=== PATIENT | male | born 1955 | race Hispanic/Latino ===

== ENCOUNTER 2022-04-16 14:49 | Emergency (ER) | payer MEDICARE ==
--- NOTE | 2022-04-16 15:25 | Emergency Department Report ---
Stated Complaint: HIP PAIN/BOWEL ISSUES - HPI History of Present Illness: 66-year-old male reports to the ER with past medical history COPD, DM, pacemaker, HTN patient reports with urination he is also having a bowel movement the same time as been going on for about a week now. MSE screening note: Focused history and physical exam performed. Due to findings the following was ordered: ED Disposition for MSE Condition: Stable
[2022-04-16 17:27] LABS: BUN/Creatinine Ratio 28; Blood Urea Nitrogen 22 mg/dL (9-20)
[2022-04-16 17:29] LABS: Alanine Aminotransferase 122 units/L (7-56); Albumin 3.6 g/dL (3.9-5); Calcium 8.7 mg/dL (8.4-10.2); Hemolysis Index 26
[2022-04-16] MEDS ORDERED: INSULIN REGULAR, HUMAN 100 UNITS/1 ML SUB-Q ONE (17:32)
[2022-04-16 18:11] LABS: Basophils # (Auto) 0.1 K/mm3 (0.0-0.1); Basophils % (Auto) 2.1 % (0.0-1.8); Eosinophils % (Auto) 0.1 % (0.0-4.3); Hematocrit 38.1 % (35.5-45.6); Lymphocytes # (Auto) 0.7 K/mm3 (1.2-5.4); Mean Corpuscular HGB Conc 32 % (32-34); Mean Corpuscular Volume 97 fl (84-94); Monocytes # (Auto) 0.4 K/mm3 (0.0-0.8); Monocytes % (Auto) 6.1 % (0.0-7.3); Platelet Count 131 K/mm3 (140-440); Red Blood Count 3.92 M/mm3 (3.65-5.03); Red Cell Distribution Width 16.1 % (13.2-15.2)
[2022-04-16] MEDS ORDERED: SODIUM CHLORIDE 0.9% 1000 ML 1,000 ML IV ONE ×2 (21:30→21:31)
[2022-04-16] MEDS ORDERED: MORPHINE 4 MG/1 ML INJ IV ONE (21:30)
[2022-04-16] MEDS ORDERED: KETOROLAC 30 MG/1 ML INJ IV ONE (21:31)
--- NOTE | 2022-04-16 22:10 | XRay Report ---
RIGHT HIP 3 VIEW(S) INDICATION / CLINICAL INFORMATION: right hip pain COMPARISON: None available. FINDINGS: BONES / JOINT(S): No acute fracture or subluxation. No significant arthritis. SOFT TISSUES: No significant abnormality. ADDITIONAL FINDINGS: None. Signer Name: Khoi Bingham DO Signed: 04/16/2022 10:06 PM Workstation Name: [id number]
--- NOTE | 2022-04-17 01:18 | Emergency Department Report ---
ED Extremity Problem HPI - General Chief complaint: Urogenital-Male Stated complaint: HIP PAIN/BOWEL ISSUES Source: patient Mode of arrival: Ambulatory Limitations: No Limitations - History of Present Illness Initial comments: Patient is a 66-year-old male with a history of rym-wfszrhn-jeiaqisek diabetes with noncompliant medication, chronic pain due to chronic osteoa rthritis and chronic hip pain who presents to the ED with acute exacerbation of his chronic right hip pain, generalized weakness, and fatigue persistently for the last 1 month. Patient states that he has not taken metformin for his diabetes for over 3 months. Patient also states that he does not have any pain medications at home for his chronic pain. Patient denies fall, traumatic injury, nausea and vomiting, chest pain, shortness of breath, abdominal pain, back pain, fever, chills, dysuria, urinary frequency and urgency, testicular pain, sore throat, headache, change in vision or seizures, dizziness or syncope. MD Complaint: extremity pain (right hip pain), joint paint (right hip pain), other (chronic pain; generalized weakness) -: Gradual, month(s) (1) Location: right, lower extremity (right hip pain) History of Same: Yes (chronic right knee pain) -: Yes arthralgia (right hip pain), No fever, No associated dyspnea, No associated chest pain Severity scale (0 -10): 10 Quality: aching, sharp Consistency: constant Improves with: nothing, movement Worsens with: weight bearing, walking, exertion, palpation Associated Symptoms: denies other symptoms, arthralgias (right hip pain). denies: chest pain, shortness of breath, fever, myalgias - Related Data Previous Rx's Medication Instructions Recorded Last Taken Type Baclofen 20 mg PO Q12H PRN #20 tab 04/17/22 Unknown Rx Naproxen 500 mg PO Q12H PRN #30 tab 04/17/22 Unknown Rx metFORMIN [Glucophage] 500 mg PO Q12H #60 tab 04/17/22 Unknown Rx Allergies Allergy/AdvReac Type Severity Reaction Status Date / Time No Known Allergies Allergy Unverified 04/16/22 15:25 ED Review of Systems ROS: Stated complaint: HIP PAIN/BOWEL ISSUES Other details as noted in HPI Constitutional: denies: chills, fever Eyes: denies: eye pain, eye discharge, vision change ENT: denies: ear pain, throat pain Respiratory: denies: cough, shortness of breath, wheezing Cardiovascular: denies: chest pain, palpitations Endocrine: no symptoms reported Gastrointestinal: denies: abdominal pain, nausea, diarrhea Genitourinary: denies: urgency, dysuria Musculoskeletal: arthralgia (right hip pain). denies: back pain, joint swelling Skin: denies: rash, lesions Neurological: denies: headache, weakness, paresthesias Psychiatric: denies: anxiety, depression Hematological/Lymphatic: denies: easy bleeding, easy bruising ED Past Medical Hx - Social History Smoking Status: Unknown if ever smoked - Medications Home Medications: Home Medications Medication Instructions Recorded Confirmed Last Taken Type Baclofen 20 mg PO Q12H PRN #20 tab 04/17/22 Unknown Rx Naproxen 500 mg PO Q12H PRN #30 tab 04/17/22 Unknown Rx metFORMIN [Glucophage] 500 mg PO Q12H #60 tab 04/17/22 Unknown Rx ED Physical Exam - General Limitations: No Limitations General appearance: alert, in no apparent distress - Head Head exam: Present: atraumatic, normocephalic, normal inspection - Eye Eye exam: Present: normal appearance, PERRL, EOMI Pupils: Present: normal accommodation - ENT ENT exam: Present: normal exam, normal orophraynx, mucous membranes moist, TM's normal bilaterally, normal external ear exam - Neck Neck exam: Present: normal inspection, full ROM. Absent: tenderness - Respiratory Respiratory exam: Present: normal lung sounds bilaterally. Absent: respiratory distress, wheezes, rales, rhonchi, stridor, chest wall tenderness, accessory muscle use, decreased breath sounds, prolonged expiratory - Cardiovascular Cardiovascular Exam: Present: regular rate, normal rhythm, normal heart sounds. Absent: systolic murmur, diastolic murmur, rubs, gallop - GI/Abdominal GI/Abdominal exam: Present: soft, normal bowel sounds. Absent: tenderness, guarding, rebound, hyperactive bowel sounds, hypoactive bowel sounds, organomeg susy - Extremities Exam Extremities exam: Present: normal inspection, full ROM, tenderness (palpable right hip tenderness), normal capillary refill. Absent: pedal edema, joint swelling, calf tenderness - Back Exam Back exam: Present: normal inspection, full ROM. Absent: tenderness, CVA tenderness (R), CVA tenderness (L), muscle spasm, paraspinal tenderness, vertebral tenderness - Neurological Exam Neurological exam: Present: alert, oriented X3, CN II-XII intact, normal gait, reflexes normal - Psychiatric Psychiatric exam: Present: normal affect, normal mood - Skin Skin exam: Present: warm, dry, intact, normal color. Absent: rash ED Course Vital Signs 04/16/22 04/16/22 04/16/22 15:20 22:06 22:07 Temperature 97.4 F L Pulse Rate 76 Respiratory 20 18 18 Rate Blood Pressure 125/80 [Left] O2 Sat by Pulse 100 Oximetry ED Medical Decision Making - Lab Data Result diagrams: 04/16/22 16:00 04/16/22 16:00 - Radiology Data Radiology results: report reviewed, [id number] XRay Report Signed Patient: RONNIE HENDERSON MR#: [id number] : 1955 Acct:[id number] Age/Sex: 66 / M ADM Date: 04/16/22 Loc: ED Attending Dr: Ordering Physician: RAKESH BARBA Date of Service: 04/16/22 Procedure(s): XR hip 2-3V RT Accession Number(s): [id number] cc: RAKESH BARBA Fluoro Time In Minutes: RIGHT HIP 3 VIEW(S) INDICATION / CLINICAL INFORMATION: right hip pain COMPARISON: None available. FINDINGS: BONES / JOINT(S): No acute fracture or subluxation. No significant arthritis. SOFT TISSUES: No significant abnormality. ADDITIONAL FINDINGS: None. Signer Name: Khoi Regalado DO Signed: 04/16/2022 10:06 PM Workstation Name: [id number] Transcribed By: ISAAC Dictated By: KHOI REGALADO DO Electronically Authenticated By: KHOI REGALADO DO Signed Date/Time: 04/16/222205 DD/ 04 TD/TT: - Medical Decision Making This is a 66-year-old male with a history of sby-onaivkm-kiptckuam diabetes with noncompliant medication, chronic pain due to chronic osteoarthritis and chronic hip pain who presents to the ED with acute exacerbation of his chronic right hip pain, generalized weakness, and fatigue persistently for the last 1 month. Patient states that he has not taken metformin for his diabetes for over 3 months. Patient also states that he does not have any pain medications at home for his chronic pain. In the ED, patient is alert and oriented x3 and is not in any distress but appears to be in pain. Patient is hemodynamically stable. Right hip x-ray showed no acute fractures or subluxation. Lab test results were reviewed and showed acute hyponatremia 131 mmol/L, acute hypochloremia 96.6, BUN of 22, hyperglycemia of 542 mg/dL, AST of 55, ALT of 122, and alk phos of 142. Patient however declined to give urine for urinalysis. Patient was treated in the ED with 2 L of normal saline IV bolus and 10 units of insulin IV x1. Patient also received pain medications in the ED. On reevaluation, patient felt better, pain is well controlled medication and repeat [id number] serum glucose was 256 mg/dL after the treatment. Patient was therefore discharged home on pain medications and a prescription of metformin and advised to follow-up with his primary care physician in 5 to 7 days for reevaluation or return to the ED immediately if symptoms get worse. - Differential Diagnosis chronic pain; chronic osteoarthritis; hyperglycemia; Critical care attestation.: If time is entered above; I have spent that time in minutes in the direct care of this critically ill patient, excluding procedure time. ED Disposition Clinical Impression: Chronic pain syndrome, Chronic pain of right hip, Noncompliance w/medication treatment due to intermit use of medication Hyperglycemia due to type 2 diabetes mellitus Qualifiers: Diabetes mellitus group home insulin use: without superintendent terminal use Qualified Code(s): E11.65 - Type 2 diabetes mellitus with hyperglycemia Disposition: 01 HOME / SELF CARE / HOMELESS Is pt being admited?: No Does the pt Need Aspirin: No Condition: Stable Instructions: Hip Pain, Hyperglycemia, [id number], Chronic Pain, Adult, Type 2 Diabetes Mellitus, Self Care, Adult, Msgm-mz-Oemm, Musculoskeletal Pain, Joint Pain, [id number]-[id number]-Ohqz, Diabetes Mellitus Type 2 in Adults (ED) Additional Instructions: Take medication with food, drink plenty of fluids, follow-up with your primary care physician in 7 to 10 days for reevaluation. Return to the ED immediately if symptoms get worse. Prescriptions: Baclofen 20 mg PO Q12H PRN #20 tab PRN Reason: Muscle Spasm metFORMIN [Glucophage] 500 mg PO Q12H #60 tab Naproxen 500 mg PO Q12H PRN #30 tab PRN Reason: Pain , Severe (7-10) Referrals: KAMARI MOROCHO MD [Primary Care Provider] - 7-10 days Time of Disposition: 01:20 Print Language: GEORGIAN
[2022-04-17 07:13] VITALS: BP 99/77
== END 2022-04-17 07:13 | disposition home or self-care (01) ==
LOC: ED 14:49
DX: M25.551 Pain in right hip (principal); G89.4 Chronic pain syndrome; Z91.14 Patient's other noncompliance with medication regimen; E11.65 Type 2 diabetes mellitus with hyperglycemia; Z79.899 Other long term (current) drug therapy
CPT/HCPCS: 36415; 73502; 80053; 82962; 85025; 96361; 96372; 96374; 96375; 99284; J1885; J2270; J7030; Q9967; J1815

== ENCOUNTER 2022-04-21 12:26 | Inpatient (IN) | payer MEDICARE ==
[2022-04-21] MEDS ORDERED: SODIUM CHLORIDE 0.9% 500 ML 500 ML IV ONE (12:55)
--- NOTE | 2022-04-21 12:58 | Emergency Department Report ---
ED General Adult HPI - General Chief complaint: Hyperglycemia Stated complaint: HYPERGLYCEMIA Time Seen by Provider: 04/21/22 12:51 Source: patient, EMS ( EMS documentation not available at time of chart dictation ), RN notes reviewed, old records reviewed Mode of arrival: Stretcher Limitations: Altered Mental Status, Physical Limitation - History of Present Illness Initial comments: The patient was evaluated in the emergency department for symptoms described in the history of present illness. He/she was evaluated in the context of the global COVID-19 pandemic, which necessitated consideration that the patient might be at risk for infection with the virus that causes COVID-19. Institutional protocols and algorithms that pertain to the evaluation of patients at risk for COVID-19 are in a state of rapid change based on information released by regulatory bodies including the CDC and federal and state organizations. These policies and algorithms were followed during the patient's care in the emergency department. Please note that these policies, procedures and recommendations changed on a rapid basis. This is a 66-year-old gentleman who was brought to the hospital by emergency medical services. Patient is acutely altered, confused, agitated. The patient is not accompanied by friends or family at this time for collateral information or additional history. As per verbal report from nursing team, who received verbal report from EMS, the patient was found in the yard, for uncertain duration of time, uncertain mechanism, with 911 being called for alteration in mental status and hyperglycemia. Of note, this patient was seen in this department a few days ago, and had laboratory studies at that time which demonstrated metabolic acidosis, hyperglycemia, and transaminitis. His glucose was treated, but for unclear reasons, he was discharged. The patient presents today with the aforementioned. Patient confused and agitated, not able to describe the qualitative nature of symptoms, exacerbating factors relieving factors or aggravating factors. No additional history is available at this time - Related Data Previous Rx's Medication Instructions Recorded Last Taken Type Baclofen 20 mg PO Q12H PRN #20 tab 04/17/22 Unknown Rx Naproxen 500 mg PO Q12H PRN #30 tab 04/17/22 Unknown Rx metFORMIN [Glucophage] 500 mg PO Q12H #60 tab 04/17/22 Unknown Rx Allergies Allergy/AdvReac Type Severity Reaction Status Date / Time No Known Allergies Allergy Verified 04/21/22 14:19 ED Review of Systems ROS: Stated complaint: HYPERGLYCEMIA Other details as noted in HPI Comment: Unobtainable due to pts medical conditions ED Past Medical Hx - Past Medical History Previous Medical History?: No Additional medical history: unable to assess - Social History Smoking Status: Unknown if ever smoked - Medications Home Medications: Home Medications Medication Instructions Recorded Confirmed Last Taken Type Baclofen 20 mg PO Q12H PRN #20 tab 04/17/22 Unknown Rx Naproxen 500 mg PO Q12H PRN #30 tab 04/17/22 Unknown Rx metFORMIN [Glucophage] 500 mg PO Q12H #60 tab 04/17/22 Unknown Rx ED Physical Exam - General Limitations: Altered Mental Status General appearance: other (Agitated.) - Head Head exam: Present: atraumatic, normocephalic - Eye Eye exam: Present: normal appearance, EOMI - ENT ENT exam: Present: mucous membranes dry, normal external ear exam - Neck Neck exam: Present: normal inspection, full ROM. Absent: tenderness, meningismu s - Respiratory Respiratory exam: Present: normal lung sounds bilaterally. Absent: respiratory distress, rhonchi, stridor, decreased breath sounds - Cardiovascular Cardiovascular Exam: Present: normal rhythm, tachycardia, normal heart sounds. Absent: bradycardia, irregular rhythm, systolic murmur, diastolic murmur, rubs, gallop - GI/Abdominal GI/Abdominal exam: Present: soft. Absent: distended, tenderness, guarding, rebound, rigid, pulsatile mass - Rectal Rectal exam: Present: deferred - Extremities Exam Extremities exam: Present: normal inspection, full ROM, normal capillary refill, pedal edema (2+ edema noted in the bilateral lower extremities), other (2+ pulses noted in the bilateral upper and lower extremities. There is no palpable cord. negative Homans sign. Muscular compartments are soft. The pelvis is stable.). Absent: calf tenderness - Back Exam Back exam: Present: normal inspection. Absent: tenderness, CVA tenderness (R), CVA tenderness (L), paraspinal tenderness, vertebral tenderness - Neurological Exam Neurological exam: Present: altered (The patient is altered. The patient is moving 4 extremities. The patient is yelling.) - Psychiatric Psychiatric exam: Present: agitated - Skin Skin exam: Present: warm, dry, intact. Absent: urticaria, vesicles, petechiae, pallor, abrasion, ecchymosis ED Course Vital Signs 04/21/22 04/21/22 04/21/22 13:14 13:16 13:46 Temperature 97.5 F L Pulse Rate 111 H 116 H 131 H Respiratory 18 25 H 19 Rate Blood Pressure 112/73 126/69 O2 Sat by Pulse 100 55 L 99 Oximetry 04/21/22 04/21/22 04/21/22 14:00 14:16 14:30 Temperature Pulse Rate 111 H 112 H 125 H Respiratory 18 20 21 Rate Blood Pressure 112/73 113/64 101/71 O2 Sat by Pulse 100 99 Oximetry 04/21/22 04/21/22 04/21/22 14:46 15:08 15:16 Temperature Pulse Rate 112 H 96 H 111 H Respiratory 19 15 25 H Rate Blood Pressure 116/82 124/86 124/86 O2 Sat by Pulse Oximetry 04/21/22 04/21/22 04/21/22 15:30 15:46 16:00 Temperature Pulse Rate 141 H 146 H 152 H Respiratory 19 23 21 Rate Blood Pressure 145/114 145/114 145/114 O2 Sat by Pulse Oximetry 04/21/22 04/21/22 04/21/22 16:16 16:30 16:45 Temperature Pulse Rate 140 H 136 H 122 H Respiratory 14 18 15 Rate Blood Pressure 68/51 94/65 O2 Sat by Pulse 57 L Oximetry - Reevaluation(s) Reevaluation #1: 04/21/22 14:37 Differential diagnosis, including not limited to: Toxic metabolic encephalopathy, secondary to diabetic ketoacidosis, pneumonia, UTI, electrolyte derangement, thyroid derangement Assessment and plan: 66-year-old gentleman with alteration in mental status, who presents with recurrent diabetic ketoacidosis. This patient was discharged a few days ago, and diabetic ketoacidosis. The reasons as to his discharge with abnormal laboratory studies and transaminitis a few days ago are not clear to myself. Patient presents with a glucose of greater than 400, CO2 of 12, and anion gap of 35. Elevated troponin is likely a type II troponin leak. Elevated lactic acid, is likely a type II lactic acidosis. Chest x-ray does not demonstrate evidence of pneumonia. Urinalysis is pending. He has a consistent and persistent transaminitis, and is found to be hepatitis C positive based off of serology. Serum toxicology study unremarkable. Ammonia level pending Patient agitated and uncooperative here in the department, and he does not demonstrate decision-making capacity. He does not have a surrogate decision-m amy present. He presents with an acute medical condition, requiring critical interventions, with a toxic metabolic encephalopathy, secondary to DKA. He is therefore medicated appropriately, to allow for acquisition of appropriate diagnostics, such as CT scan brain, and CT scan cervical spine. Contacted critical care on-call, Dr. English. I discussed the patient's history, physical, laboratory studies and imaging studies, and clinical impression. He will follow in consultation. He agrees with placement into the intensive care unit start patient on fluids, insulin push and insulin drip. Once CT scan is resulted, admit patient to the ICU. Prognosis guarded Suspect that systemic inflammatory response syndrome likely secondary to dehydration, and underlying metabolic derangements 04/21/22 14:44 Dr Mily Schaffer to admit to IMS/CCU 04/21/22 15:23 CT scan brain and C-spine negative for acute findings 04/21/22 16:39 Patient agitated pulling and thrashing. Blood pressure decreased when compared to prior. Suspect volume depletion. As needed Versed ordered. Additional IV fluids ordered. 04/21/22 18:05 Patient remains persistently tachycardic. EKG is repeated. I see ventricular paced complexes, and rapid tachycardia. Suspect volume depletion, metabolic acidosis. First and second EKG are transmitted to our supply chain vice president on-call, Dr. Shavonne Todd Have discussed the patient's history, physical, laboratory studies and imaging studies and clinical impression. We both agree that it is prudent to continue volume resuscitation and correction of underlying electrolyte derangements, m etabolic derangements, and volume depletion. Specifically, amiodarone, and rate control agents are not recommended at this time. Cardiology will follow along the inpatient side of things. I agree with this plan of care and think that this is reasonable ED Medical Decision Making - Lab Data Result diagrams: 04/21/22 13:21 04/21/22 13:21 Vital Signs 04/21/22 13:14 Temperature 97.5 F L Pulse Rate 111 H Respiratory 18 Rate Blood Pressure 112/73 O2 Sat by Pulse 100 Oximetry Lab Results 04/21/22 04/21/22 04/21/22 Range/Units 13:21 13:21 13:21 WBC 6.9 (4.5-11.0) K/mm3 RBC 3.86 (3.65-5.03) M/mm3 Hgb 12.2 (11.8-15.2) gm/dl Hct 37.9 (35.5-45.6) % MCV 98 H (84-94) fl MCH 32 (28-32) pg MCHC 32 (32-34) % RDW 18.0 H (13.2-15.2) % Plt Count 149 (140-440) K/mm3 Lymph % (Auto) 5.7 L (13.4-35.0) % [place] % (Auto) 7.9 H (0.0-7.3) % Eos % (Auto) 0.0 (0.0-4.3) % Baso % (Auto) 0.1 (0.0-1.8) % Lymph # (Auto) 0.4 L (1.2-5.4) K/mm3 [place] # (Auto) 0.5 (0.0-0.8) K/mm3 Eos # (Auto) 0.0 (0.0-0.4) K/mm3 Baso # (Auto) 0.0 (0.0-0.1) K/mm3 Seg Neutrophils % 86.3 H (40.0-70.0) % Seg Neutrophils # 6.0 (1.8-7.7) K/mm3 PT 14.1 (12.2-14.9) Sec. INR 0.98 (0.87-1.13) APTT 22.0 L (24.2-36.6) Sec. VBG pH (7.320-7.420) Sodium 149 H D (137-145) mmol/L Potassium 4.6 (3.6-5.0) mmol/L Chloride 106.6 (98-107) mmol/L Carbon Dioxide 12 L (22-30) mmol/L Anion Gap 35 mmol/L BUN 22 H (9-20) mg/dL Creatinine 0.8 (0.8-1.3) mg/dL Estimated GFR > 60 ml/min BUN/Creatinine Ratio 28 % Glucose 402 H (75-100) mg/dL Lactic Acid (0.7-2.0) mmol/L Calcium 9.4 (8.4-10.2) mg/dL Magnesium 2.00 (1.7-2.3) mg/dL Total Bilirubin 0.60 (0.1-1.2) mg/dL AST 44 H (5-40) units/L ALT 82 H (7-56) units/L Alkaline Phosphatase 119 (35-129) units/L Total Creatine Kinase 257 H (55-170) units/L Troponin T (0.00-0.029) ng/mL Total Protein 6.5 (6.3-8.2) g/dL Albumin 3.6 L (3.9-5) g/dL Albumin/Globulin Ratio 1.2 % TSH (0.270-4.200) mlU/mL Urine RBC (Auto) (0.0-6.0) /HPF U Epithel Cells (Auto) (0-13.0) /HPF Salicylates (2.8-20.0) mg/dL Acetaminophen (10.0-30.0) ug/mL Plasma/Serum Alcohol (0-0.07) % 04/21/22 04/21/22 04/21/22 Range/Units 13:21 13:21 13:21 WBC (4.5-11.0) K/mm3 RBC (3.65-5.03) M/mm3 Hgb (11.8-15.2) gm/dl Hct (35.5-45.6) % MCV (84-94) fl MCH (28-32) pg MCHC (32-34) % RDW (13.2-15.2) % Plt Count (140-440) K/mm3 Lymph % (Auto) (13.4-35.0) % [place] % (Auto) (0.0-7.3) % Eos % (Auto) (0.0-4.3) % Baso % (Auto) (0.0-1.8) % Lymph # (Auto) (1.2-5.4) K/mm3 [place] # (Auto) (0.0-0.8) K/mm3 Eos # (Auto) (0.0-0.4) K/mm3 Baso # (Auto) (0.0-0.1) K/mm3 Seg Neutrophils % (40.0-70.0) % Seg Neutrophils # (1.8-7.7) K/mm3 PT (12.2-14.9) Sec. INR (0.87-1.13) APTT (24.2-36.6) Sec. VBG pH (7.320-7.420) Sodium (137-145) mmol/L Potassium (3.6-5.0) mmol/L Chloride (98-107) mmol/L Carbon Dioxide (22-30) mmol/L Anion Gap mmol/L BUN (9-20) mg/dL Creatinine (0.8-1.3) mg/dL Estimated GFR ml/min BUN/Creatinine Ratio % Glucose (75-100) mg/dL Lactic Acid 2.30 H* (0.7-2.0) mmol/L Calcium (8.4-10.2) mg/dL Magnesium (1.7-2.3) mg/dL Total Bilirubin (0.1-1.2) mg/dL AST (5-40) units/L ALT (7-56) units/L Alkaline Phosphatase (35-129) units/L Total Creatine Kinase (55-170) units/L Troponin T (0.00-0.029) ng/mL Total Protein (6.3-8.2) g/dL Albumin (3.9-5) g/dL Albumin/Globulin Ratio % TSH 3.310 (0.270-4.200) mlU/mL Urine RBC (Auto) (0.0-6.0) /HPF U Epithel Cells (Auto) (0-13.0) /HPF Salicylates (2.8-20.0) mg/dL Acetaminophen (10.0-30.0) ug/mL Plasma/Serum Alcohol < 0.01 (0-0.07) % 04/21/22 04/21/22 04/21/22 Range/Units 13:21 13:21 13:21 WBC (4.5-11.0) K/mm3 RBC (3.65-5.03) M/mm3 Hgb (11.8-15.2) gm/dl Hct (35.5-45.6) % MCV (84-94) fl MCH (28-32) pg MCHC (32-34) % RDW (13.2-15.2) % Plt Count (140-440) K/mm3 Lymph % (Auto) (13.4-35.0) % [place] % (Auto) (0.0-7.3) % Eos % (Auto) (0.0-4.3) % Baso % (Auto) (0.0-1.8) % Lymph # (Auto) (1.2-5.4) K/mm3 [place] # (Auto) (0.0-0.8) K/mm3 Eos # (Auto) (0.0-0.4) K/mm3 Baso # (Auto) (0.0-0.1) K/mm3 Seg Neutrophils % (40.0-70.0) % Seg Neutrophils # (1.8-7.7) K/mm3 PT (12.2-14.9) Sec. INR (0.87-1.13) APTT (24.2-36.6) Sec. VBG pH (7.320-7.420) Sodium (137-145) mmol/L Potassium (3.6-5.0) mmol/L Chloride (98-107) mmol/L Carbon Dioxide (22-30) mmol/L Anion Gap mmol/L BUN (9-20) mg/dL Creatinine (0.8-1.3) mg/dL Estimated GFR ml/min BUN/Creatinine Ratio % Glucose (75-100) mg/dL Lactic Acid (0.7-2.0) mmol/L Calcium (8.4-10.2) mg/dL Magnesium (1.7-2.3) mg/dL Total Bilirubin (0.1-1.2) mg/dL AST (5-40) units/L ALT (7-56) units/L Alkaline Phosphatase (35-129) units/L Total Creatine Kinase (55-170) units/L Troponin T 0.537 H* (0.00-0.029) ng/mL Total Protein (6.3-8.2) g/dL Albumin (3.9-5) g/dL Albumin/Globulin Ratio % TSH (0.270-4.200) mlU/mL Urine RBC (Auto) (0.0-6.0) /HPF U Epithel Cells (Auto) (0-13.0) /HPF Salicylates < 0.3 L (2.8-20.0) mg/dL Acetaminophen 5.0 L (10.0-30.0) ug/mL Plasma/Serum Alcohol (0-0.07) % 04/21/22 04/21/22 Range/Units 13:21 Unknown WBC (4.5-11.0) K/mm3 RBC (3.65-5.03) M/mm3 Hgb (11.8-15.2) gm/dl Hct (35.5-45.6) % MCV (84-94) fl MCH (28-32) pg MCHC (32-34) % RDW (13.2-15.2) % Plt Count (140-440) K/mm3 Lymph % (Auto) (13.4-35.0) % [place] % (Auto) (0.0-7.3) % Eos % (Auto) (0.0-4.3) % Baso % (Auto) (0.0-1.8) % Lymph # (Auto) (1.2-5.4) K/mm3 [place] # (Auto) (0.0-0.8) K/mm3 Eos # (Auto) (0.0-0.4) K/mm3 Baso # (Auto) (0.0-0.1) K/mm3 Seg Neutrophils % (40.0-70.0) % Seg Neutrophils # (1.8-7.7) K/mm3 PT (12.2-14.9) Sec. INR (0.87-1.13) APTT (24.2-36.6) Sec. VBG pH 7.265 L (7.320-7.420) Sodium (137-145) mmol/L Potassium (3.6-5.0) mmol/L Chloride (98-107) mmol/L Carbon Dioxide (22-30) mmol/L Anion Gap mmol/L BUN (9-20) mg/dL Creatinine (0.8-1.3) mg/dL Estimated GFR ml/min BUN/Creatinine Ratio % Glucose (75-100) mg/dL Lactic Acid (0.7-2.0) mmol/L Calcium (8.4-10.2) mg/dL Magnesium (1.7-2.3) mg/dL Total Bilirubin (0.1-1.2) mg/dL AST (5-40) units/L ALT (7-56) units/L Alkaline Phosphatase (35-129) units/L Total Creatine Kinase (55-170) units/L Troponin T (0.00-0.029) ng/mL Total Protein (6.3-8.2) g/dL Albumin (3.9-5) g/dL Albumin/Globulin Ratio % TSH (0.270-4.200) mlU/mL Urine RBC (Auto) 2.0 (0.0-6.0) /HPF U Epithel Cells (Auto) 1.0 (0-13.0) /HPF Salicylates (2.8-20.0) mg/dL Acetaminophen (10.0-30.0) ug/mL Plasma/Serum Alcohol (0-0.07) % - EKG Data -: EKG Interpreted by Dc Rate: tachycardia - EKG Data When compared to previous EKG there are: previous EKG unavailable 04/21/22 14:34 The EKG is interpreted at 13: 01 Ventricular paced rhythm, with a rate of 113 bpm. Left axis deviation, left anterior fascicular block, symmetric peak T waves, QTC 5 4 4 ms, and left ventricular hypertrophy. This is an abnormal EKG. This is not a STEMI There is no prior EKG available for comparison - Radiology Data Radiology results: pending, report reviewed, image reviewed CHEST 1 VIEW INDICATION / CLINICAL INFORMATION: Altered Mental Status. COMPARISON: None available. FINDINGS: SUPPORT DEVICES: Pacemaker device is present. HEART / MEDIASTINUM: Mild cardiomegaly. LUNGS / PLEURA: No significant pulmonary or pleural abnormality. No pneumothorax. ADDITIONAL FINDINGS: No significant additional findings. IMPRESSION: 1. No acute pulmonary or pleural disease. Signer Name: Naa Ramirez MD Signed: 04/21/2022 12:37 PM Workstation Name: [id number] CT CERVICAL SPINE WITHOUT CONTRAST INDICATION: ams. Recent fall TECHNIQUE: Axial CT images of the spine were obtained. Sagittal and coronal reformatted images were produced. All CT scans at this location are performed using CT dose reduction for ALARA by means of automated exposure control. COMPARISON: None available. FINDINGS: ACUTE FRACTURE(S) OR SUBLUXATION: None. SPINAL DEGENERATIVE CHANGES: Mild degenerative disc disease from C3 through C6. PARASPINAL SOFT TISSUES: No soft tissue swelling or other acute abnormalities. ADDITIONAL FINDINGS: Atherosclerotic ossification both carotid bulbs. IMPRESSION: 1. No acute fracture or subluxation in the spine in neutral position. Signer Name: Garry Do MD Signed: 04/21/2022 1:59 PM Workstation Name: [id number] CT head/brain wo con INDICATION: ams. TECHNIQUE: All CT scans at this location are performed using CT dose reduction for ALARA by means of automated exposure control. COMPARISON: None available. FINDINGS: There is no evidence of hemorrhage, hydrocephalus, brain edema, or mass effect/mass lesion. 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 There is mild global atrophy. The included paranasal sinuses and mastoid air cells are clear. The orbits appear unremarkable. IMPRESSION: 1. No acute findings. Signer Name: Garry Do MD Signed: 04/21/2022 2:00 PM Workstation Name: [id number] Critical Care Time: Yes Critical care time in (mins) excluding proc time.: 45 Critical care attestation.: If time is entered above; I have spent that time in minutes in the direct care of this critically ill patient, excluding procedure time. ED Disposition Clinical Impression: DKA (diabetic ketoacidosis), Acute encephalopathy, Transaminitis, Hepatitis C Disposition: 09 ADMITTED INPATIENT Is pt being admited?: Yes Does the pt Need Aspirin: No Condition: Critical Instructions: Diabetic Ketoacidosis (ED)
--- NOTE | 2022-04-21 13:42 | XRay Report ---
CHEST 1 VIEW INDICATION / CLINICAL INFORMATION: Altered Mental Status. COMPARISON: None available. FINDINGS: SUPPORT DEVICES: Pacemaker device is present. HEART / MEDIASTINUM: Mild cardiomegaly. LUNGS / PLEURA: No significant pulmonary or pleural abnormality. No pneumothorax. ADDITIONAL FINDINGS: No significant additional findings. IMPRESSION: 1. No acute pulmonary or pleural disease. Signer Name: Naa Ramirez MD Signed: 04/21/2022 1:37 PM Workstation Name: [id number]
[2022-04-21 13:52] LABS: Basophils % (Auto) 0.1 % (0.0-1.8); Hematocrit 37.9 % (35.5-45.6); Hemoglobin 12.2 gm/dl (11.8-15.2); Lymphocytes # (Auto) 0.4 K/mm3 (1.2-5.4); Lymphocytes % (Auto) 5.7 % (13.4-35.0); Mean Corpuscular HGB Conc 32 % (32-34); Mean Corpuscular Volume 98 fl (84-94); Monocytes # (Auto) 0.5 K/mm3 (0.0-0.8); Monocytes % (Auto) 7.9 % (0.0-7.3); Platelet Count 149 K/mm3 (140-440); Red Blood Count 3.86 M/mm3 (3.65-5.03)
[2022-04-21] MEDS ORDERED: HALOPERIDOL LACTATE 5 MG/1 ML INJ IM PRN (13:56)
[2022-04-21] MEDS ORDERED: LORazepam 2 MG/ML VIAL IM PRN (13:56)
[2022-04-21 13:59] LABS: Alanine Aminotransferase 82 units/L (7-56); Albumin 3.6 g/dL (3.9-5); BUN/Creatinine Ratio 28; Blood Urea Nitrogen 22 mg/dL (9-20); Calcium 9.4 mg/dL (8.4-10.2); Hemolysis Index 1; INR 0.98 (0.87-1.13)
[2022-04-21 14:05] LABS: Mucus,Urine FEW /HPF
[2022-04-21] MEDS ORDERED: INSULIN REGULAR, HUMAN 100 UNITS/1 ML IV ONE (14:18)
[2022-04-21] MEDS ORDERED: SODIUM CHLORIDE 0.9% 1000 ML 1,000 ML IV ONE ×2 (14:18→14:19)
[2022-04-21] MEDS ORDERED: DEXTROSE 50% IN WATER (25GM) 50 ML SYRINGE IV PRN (14:18)
[2022-04-21 14:25] LABS: Hepatitis B Surface Antigen Non-Reactive (Negative); Hepatitis C Virus Antibody Reactive (NonReactive)
[2022-04-21 14:27] LABS: Bilirubin,Urine Negative (Negative); Blood,Urine Trace (Negative); Color,Urine Straw (Yellow); Urobilinogen,Urine < 2.0 mg/dL (<2.0)
[2022-04-21 14:35] LABS: Amphetamine Screen,Urine PRESUMPTIVE NEGATIVE; Benzodiazepines Screen,Urine PRESUMPTIVE NEGATIVE; Cannabinoid Screen,Urine PRESUMPTIVE NEGATIVE; Cocaine Screen,Urine PRESUMPTIVE NEGATIVE; Methadone Screen,Urine PRESUMPTIVE NEGATIVE; Opiate Screen,Urine PRESUMPTIVE NEGATIVE
[2022-04-21] MEDS ORDERED: KETOROLAC 30 MG/1 ML INJ IV PRN (14:45)
[2022-04-21] MEDS ORDERED: HYDROmorphone 0.5 MG/0.5 ML INJ IV PRN (14:45)
[2022-04-21] MEDS ORDERED: MORPHINE 2 MG/1 ML INJ IV PRN (14:45)
[2022-04-21] MEDS ORDERED: INSULIN REGULAR, HUMAN 100 UNITS in SODIUM CHLORIDE 0.9% 99 ML IV SCH (15:00)
--- NOTE | 2022-04-21 15:03 | Cat Scan Report ---
CT CERVICAL SPINE WITHOUT CONTRAST INDICATION: ams. Recent fall TECHNIQUE: Axial CT images of the spine were obtained. Sagittal and coronal reformatted images were produced. Al l CT scans at this location are performed using CT dose reduction for ALARA by means of automated exp osure control. COMPARISON: None available. FINDINGS: ACUTE FRACTURE(S) OR SUBLUXATION: None. SPINAL DEGENERATIVE CHANGES: Mild degenerative disc disease from C3 through C6. PARASPINAL SOFT TISSUES: No soft tissue swelling or other acute abnormalities. ADDITIONAL FINDINGS: Atherosclerotic ossification both carotid bulbs. IMPRESSION: 1. No acute fracture or subluxation in the spine in neutral position. Signer Name: Garry Do MD Signed: 04/21/2022 2:59 PM Workstation Name: [id number]
--- NOTE | 2022-04-21 15:04 | Cat Scan Report ---
CT head/brain wo con INDICATION: ams. TECHNIQUE: All CT scans at this location are performed using CT dose reduction for ALARA by means of automated e xposure control. COMPARISON: None available. FINDINGS: There is no evidence of hemorrhage, hydrocephalus, brain edema, or mass effect/mass lesion. There is a chronic infarct in the left [employer]IP[employer]ER territory. There is mild global atrophy. The included paranasal sinuses and mastoid air cells are clear. The orbits appear unremarkable. IMPRESSION: 1. No acute findings. Signer Name: Garry Do MD Signed: 04/21/2022 3:00 PM Workstation Name: [id number]
[2022-04-21] MEDS ORDERED: SODIUM CHLORIDE 0.9% 1000 ML 2,000 ML IV ONE ×2 (16:17→19:57)
[2022-04-21] MEDS: MIDAZOLAM 2 MG/2 ML INJ IV PRN (16:18)
[2022-04-21] MEDS ORDERED: ZIPRASIDONE MESYLATE 20 MG VIAL IM STA (17:57)
[2022-04-21] MEDS ORDERED: LACTATED RINGERS 1,000 ML IV ONE (18:05)
[2022-04-21] MEDS ORDERED: SODIUM CHLORIDE 0.9% 1000 ML 1,000 ML ONE (19:36)
[2022-04-21] MEDS: D5W/0.45% NACL/KCL 20 MEQ 20 MEQ/1,000 ML BAG IV SCH (19:54)
[2022-04-21 21:45] LABS: Blood Urea Nitrogen 19 mg/dL (9-20); Calcium 7.7 mg/dL (8.4-10.2); Hemolysis Index 10
[2022-04-21 21:47] LABS: BUN/Creatinine Ratio 32
[2022-04-22] MEDS ORDERED: MORPHINE 2 MG/1 ML INJ IV PRN (01:44)
[2022-04-22] MEDS ORDERED: ACETAMINOPHEN 325 MG TAB PO PRN (01:44)
[2022-04-22] MEDS ORDERED: HYDROmorphone 0.5 MG/0.5 ML INJ IV PRN (01:44)
[2022-04-22] MEDS ORDERED: ONDANSETRON 4 MG/2 ML INJ IV PRN (01:44)
[2022-04-22] MEDS ORDERED: METOCLOPRAMIDE 10 MG/2 ML INJ IV PRN (01:44)
[2022-04-22] MEDS: D5W/0.45% NACL/KCL 20 MEQ 20 MEQ/1,000 ML BAG IV SCH ×2 (03:11→10:56)
[2022-04-22 03:57] LABS: Blood Urea Nitrogen 23 mg/dL (9-20); Calcium 8.1 mg/dL (8.4-10.2); Hemolysis Index 26
[2022-04-22 04:11] LABS: BUN/Creatinine Ratio 38
[2022-04-22 06:39] LABS: BUN/Creatinine Ratio 40; Blood Urea Nitrogen 24 mg/dL (9-20); Calcium 8.5 mg/dL (8.4-10.2); Hemolysis Index 52
--- NOTE | 2022-04-22 06:52 | History and Physical Report ---
History of Present Illness Date of examination: 04/21/22 Date of admission: 04/21/22 18:05 Chief complaint: Altered sensorium since a.m. History of present illness: 66-year-old male with history of diabetes and noncompliant comes in for severely altered sensorium and confusion and region. Patient is not accompanied by friends or family. As per EMS patient was found in the yard.last well-known time not known. No fever or chills. 911 was called by a bystander. It is not known whether he had any fever or chills. It is not known whether he is taking his medications. Severely altered sensorium. Responses were not oriented to time and place and person. Patientwas in the emergency room recently and was discharged. - Past Medical History --Previous Medical History?: No --Additional medical history: unable to assess -surgical history -- not available - Social History --Smoking Status: Unknown if ever smoked - Family history -- not available - Medications --Home Medications: Home Medications Medication Instructions Recorded Confirmed Last Taken Type Baclofen 20 mg PO Q12H PRN #20 tab 04/17/22 Unknown Rx Naproxen 500 mg PO Q12H PRN #30 tab 04/17/22 Unknown Rx metFORMIN [Glucophage] 500 mg PO Q12H #60 tab 04/17/22 Unknown Rx Review of Systems ROS: Stated complaint: HYPERGLYCEMIA Other details as noted in HPI Comment: Unobtainable due to pts medical conditions Medications and Allergies Allergies Allergy/AdvReac Type Severity Reaction Status Date / Time No Known Allergies Allergy Verified 04/21/22 14:19 Home Medications Medication Instructions Recorded Confirmed Last Taken Type Baclofen 20 mg PO Q12H PRN #20 tab 04/17/22 Unknown Rx Naproxen 500 mg PO Q12H PRN #30 tab 04/17/22 Unknown Rx metFORMIN [Glucophage] 500 mg PO Q12H #60 tab 04/17/22 Unknown Rx Active Meds: Active Medications Acetaminophen (Acetaminophen 325 Mg Tab) 650 mg PO Q4H PRN PRN Reason: Pain MILD(1-3)/Fever >100.5/KHAN Dextrose (Dextrose 50% In Water (25gm) 50 Ml Syringe) 0 ml IV Q30MIN PRN; Protocol PRN Reason: Hypoglycemia Haloperidol Lactate (Haloperidol Lactate 5 Mg/1 Ml Inj) 5 mg IM Q6HR PRN PRN Reason: Agitation Last Admin: 04/21/22 14:12 Dose: 5 mg Hydromorphone HCl (Hydromorphone 0.5 Mg/0.5 Ml Inj) 0.5 mg IV Q3H PRN PRN Reason: Pain , Severe (7-10) Insulin Human Regular 100 (units/ Sodium Chloride) 100 mls @ 1 mls/hr IV TITR ANALISA; Protocol Last Titration: 04/22/22 06:31 Dose: 0.5 units/hr, 0.5 mls/hr Potassium Chloride/Dextrose/Sod Cl (D5w/0.45% Nacl/Kcl 20 Meq) 20 meq in 1,000 mls @ 125 mls/hr IV DIRECT ANALISA Last Admin: 04/22/22 03:11 Dose: 125 mls/hr Metoclopramide HCl (Metoclopramide 10 Mg/2 Ml Inj) 10 mg IV Q6H PRN PRN Reason: Nausea And Vomiting Midazolam HCl (Midazolam 2 Mg/2 Ml Inj) 2 mg IV Q2HR PRN PRN Reason: Agitation Last Admin: 04/21/22 16:18 Dose: 2 mg Morphine Sulfate (Morphine 2 Mg/1 Ml Inj) 2 mg IV Q4H PRN PRN Reason: Pain, Moderate (4-6) Ondansetron HCl (Ondansetron 4 Mg/2 Ml Inj) 4 mg IV Q8H PRN PRN Reason: Nausea And Vomiting Sodium Chloride (Sodium Chloride 0.9% 10 Ml Flush Syringe) 10 ml IV BID ANALISA Sodium Chloride (Sodium Chloride 0.9% 10 Ml Flush Syringe) 10 ml IV PRN PRN PRN Reason: LINE FLUSH Exam - Constitutional Vitals: Temp Pulse Resp BP Pulse Ox 97.8 F 126 H 20 114/75 79 L 04/22/22 04:00 04/22/22 06:00 04/22/22 06:00 04/22/22 06:00 04/22/22 06:00 General appearance: Present: no acute distress, well-nourished - EENT Eyes: Present: PERRL ENT: hearing intact, clear oral mucosa - Neck Neck: Present: supple, normal ROM - Respiratory Respiratory effort: normal Respiratory: bilateral: CTA - Cardiovascular Heart rate: 78 Rhythm: regular Heart Sounds: Present: S1 & S2. Absent: rub, click - Extremities Extremities: no ischemia, pulses intact, pulses symmetrical, No edema Peripheral Pulses: within normal limits - Abdominal General gastrointestinal: Present: soft, non-tender, non-distended, normal bowel sounds Male genitourinary: Present: normal - Rectal Rectal Exam: deferred - Integumentary Integumentary: Present: clear, warm, dry - Musculoskeletal Musculoskeletal: gait normal, strength equal bilaterally - Psychiatric Psychiatric: appropriate mood/affect, intact judgment & insight - Neurologic Neurologic: CNII-XII intact, moves all extremities - Allied Health Allied health notes reviewed: nursing, case management HEART Score - HEART Score Troponin: Troponin T 0.537 ng/mL (0.00-0.029) H* 04/21/22 13:21 Results - Labs CBC & Chem 7: 04/21/22 13:21 04/22/22 06:00 Labs: Laboratory Last Values WBC 6.9 K/mm3 (4.5-11.0) 04/21/22 13:21 RBC 3.86 M/mm3 (3.65-5.03) 04/21/22 13:21 Hgb 12.2 gm/dl (11.8-15.2) 04/21/22 13:21 Hct 37.9 % (35.5-45.6) 04/21/22 13:21 MCV 98 fl (84-94) H 04/21/22 13:21 MCH 32 pg (28-32) 04/21/22 13:21 MCHC 32 % (32-34) 04/21/22 13:21 RDW 18.0 % (13.2-15.2) H 04/21/22 13:21 Plt Count 149 K/mm3 (140-440) 04/21/22 13:21 Lymph % (Auto) 5.7 % (13.4-35.0) L 04/21/22 13:21 [place] % (Auto) 7.9 % (0.0-7.3) H 04/21/22 13:21 Eos % (Auto) 0.0 % (0.0-4.3) 04/21/22 13:21 Baso % (Auto) 0.1 % (0.0-1.8) 04/21/22 13:21 Lymph # (Auto) 0.4 K/mm3 (1.2-5.4) L 04/21/22 13:21 [place] # (Auto) 0.5 K/mm3 (0.0-0.8) 04/21/22 13:21 Eos # (Auto) 0.0 K/mm3 (0.0-0.4) 04/21/22 13:21 Baso # (Auto) 0.0 K/mm3 (0.0-0.1) 04/21/22 13:21 Seg Neutrophils % 86.3 % (40.0-70.0) H 04/21/22 13:21 Seg Neutrophils # 6.0 K/mm3 (1.8-7.7) 04/21/22 13:21 PT 14.1 Sec. (12.2-14.9) 04/21/22 13:21 INR 0.98 (0.87-1.13) 04/21/22 13:21 APTT 22.0 Sec. (24.2-36.6) L 04/21/22 13:21 VBG pH 7.265 (7.320-7.420) L 04/21/22 13:21 Sodium 152 mmol/L (137-145) H 04/22/22 06:00 Potassium 4.4 mmol/L (3.6-5.0) 04/22/22 06:00 Chloride 118.1 mmol/L (98-107) H 04/22/22 06:00 Carbon Dioxide 13 mmol/L (22-30) L 04/22/22 06:00 Anion Gap 25 mmol/L 04/22/22 06:00 BUN 24 mg/dL (9-20) H 04/22/22 06:00 Creatinine 0.6 mg/dL (0.8-1.3) L 04/22/22 06:00 Estimated GFR > 60 ml/min 04/22/22 06:00 BUN/Creatinine Ratio 40 % 04/22/22 06:00 Glucose 94 mg/dL (75-100) 04/22/22 06:00 POC Glucose 109 mg/dL (70-105) H 04/22/22 06:30 Lactic Acid 9.80 mmol/L (0.7-2.0) H* 04/22/22 06:00 Calcium 8.5 mg/dL (8.4-10.2) 04/22/22 06:00 Phosphorus 1.80 mg/dL (2.5-4.5) L 04/21/22 21:12 Magnesium 1.70 mg/dL (1.7-2.3) 04/21/22 21:12 Total Bilirubin 0.60 mg/dL (0.1-1.2) 04/21/22 13:21 AST 44 units/L (5-40) H 04/21/22 13:21 ALT 82 units/L (7-56) H 04/21/22 13:21 Alkaline Phosphatase 119 units/L (35-129) 04/21/22 13:21 Ammonia 17.0 umol/L (25-60) L 04/21/22 13:21 Total Creatine Kinase 257 units/L (55-170) H 04/21/22 13:21 Troponin T 0.537 ng/mL (0.00-0.029) H* 04/21/22 13:21 Total Protein 6.5 g/dL (6.3-8.2) 04/21/22 13:21 Albumin 3.6 g/dL (3.9-5) L 04/21/22 13:21 Albumin/Globulin Ratio 1.2 % 04/21/22 13:21 TSH 3.310 mlU/mL (0.270-4.200) 04/21/22 13:21 Urine Color Straw (Yellow) 04/21/22 Unknown Urine Turbidity Clear (Clear) 04/21/22 Unknown Urine pH 5.0 (5.0-7.0) 04/21/22 Unknown Ur Specific [place] 1.020 (1.003-1.030) 04/21/22 Unknown Urine Protein 100 mg/dl mg/dL (Negative) 04/21/22 Unknown Urine Glucose (UA) 500 mg/dL (Negative) 04/21/22 Unknown Urine Ketones 160 mg/dL (Negative) 04/21/22 Unknown Urine Blood Trace (Negative) 04/21/22 Unknown Urine Nitrite Negative (Negative) 04/21/22 Unknown Ur Reducing Substances Not Reportable 04/21/22 Unknown Urine Bilirubin Negative (Negative) 04/21/22 Unknown Urine Ictotest Not Reportable 04/21/22 Unknown Urine Urobilinogen < 2.0 mg/dL (<2.0) 04/21/22 Unknown Ur Leukocyte Esterase Negative (Negative) 04/21/22 Unknown Urine WBC (Auto) 4.0 /HPF (0.0-6.0) 04/21/22 Unknown Urine RBC (Auto) 2.0 /HPF (0.0-6.0) 04/21/22 Unknown U Epithel Cells (Auto) 1.0 /HPF (0-13.0) 04/21/22 Unknown Urine Mucus Few /HPF 04/21/22 Unknown Salicylates < 0.3 mg/dL (2.8-20.0) L 04/21/22 13:21 Urine Opiates Screen Presumptive negative 04/21/22 13:38 Urine Methadone Screen Presumptive negative 04/21/22 13:38 Acetaminophen 5.0 ug/mL (10.0-30.0) L 04/21/22 13:21 Ur Barbiturates Screen Presumptive negative 04/21/22 13:38 Ur Phencyclidine Scrn Presumptive negative 04/21/22 13:38 Ur Amphetamines Screen Presumptive negative 04/21/22 13:38 U Benzodiazepines Scrn Presumptive negative 04/21/22 13:38 Urine Cocaine Screen Presumptive negative 04/21/22 13:38 U Marijuana (THC) Screen Presumptive negative 04/21/22 13:38 Drugs of Abuse Note Disclamer 04/21/22 13:38 Plasma/Serum Alcohol < 0.01 % (0-0.07) 04/21/22 13:21 Hepatitis A IgM Ab Non-reactive (NonReactive) 04/21/22 13:21 Hep Bs Antigen Non-reactive (Negative) 04/21/22 13:21 Hep B Core IgM Ab Non-reactive (NonReactive) 04/21/22 13:21 Hepatitis C Antibody Reactive (NonReactive) A 04/21/22 13:21 Microbiology: Microbiology 04/21/22 13:21 Peripheral/Venous Blood Culture - Preliminary Culture in Progress 04/21/22 13:21 Peripheral/Venous Blood Culture - Preliminary Culture in Progress Stout/IV: Voiding Method Condom Catheter Assessment and Plan Assessment and plan: Critical care statement The high probability OF a clinically significant sudden or life-threatening deterioration of the cardiorespiratory system and endocrine system required my full and direct attention, intervention and postoperative management. The aggregate critical care time was 62 minutes. The time is in addition to time spent performing reported procedures but includes the followin: Data review and interpretation 2: Patient assessment and monitoring of vital signs 3: Documentation 4:: Medication orders and management Advance Directives: Yes - Patient Problems (1) Acute metabolic encephalopathy Current Visit: Yes Status: Acute Plan to address problem: Secondary to DKA Patient is noncompliant Patient to be counseled about compliance IV fluids and IV insulin for now (2) DKA (diabetic ketoacidosis) Current Visit: Yes Status: Acute Qualifiers: Diabetes mellitus type: type 2 Plan to address problem: DKA protocol IV fluids for now IV insulin for now Frequent Accu-Cheks Check hemoglobin A1c Anion gap is 35 Bicarb is 12 (3) Acute hypernatremia Current Visit: Yes Status: Acute Plan to address problem: A bad prognostic sign Usually expect hyponatremia IV fluids for now Normal saline (4) Lactic acidosis Current Visit: Yes Status: Acute Plan to address problem: Secondary to DKA Empiric antibiotics (5) Metabolic acidosis due to diabetes mellitus Current Visit: Yes Status: Acute Plan to address problem: Treat the underlying condition which is diabetes and DKA (6) Transaminitis Current Visit: Yes Status: Acute Plan to address problem: Check hepatitis profile Possible EtOH use (7) Malnutrition Current Visit: Yes Status: Chronic Qualifiers: Protein-calorie malnutrition severity: moderate Plan to address problem: Dietitian consult requested (8) DVT prophylaxis Current Visit: Yes Status: Acute Plan to address problem: On heparin and GI prophylaxis (9) Advance care planning Current Visit: Yes Status: Acute Plan to address problem: Could not be done because of the patient's condition
[2022-04-22] MEDS: MIDAZOLAM 2 MG/2 ML INJ IV PRN (06:53)
[2022-04-22] MEDS: cefTRIAXone/NS 2 GM/100 ML 2 GM/100 ML BAG IV SCH (07:58)
[2022-04-22] MEDS ORDERED: LACTATED RINGERS 1,000 ML IV ONE (09:00)
[2022-04-22] MEDS ORDERED: POTASSIUM PHOSPHATE 30 MMOL in SODIUM CHLORIDE 0.9% 500 ML 500 ML IV ONE (09:30)
[2022-04-22 10:42] LABS: Blood Urea Nitrogen 25 mg/dL (9-20); Calcium 8.4 mg/dL (8.4-10.2); Hemolysis Index 6
[2022-04-22 10:44] LABS: BUN/Creatinine Ratio 42
[2022-04-22] MEDS ORDERED: LORazepam 2 MG/ML VIAL IV PRN ×2 (11:00)
--- NOTE | 2022-04-22 11:25 | Consultation ---
History of Present Illness Consult reason: arrhythmia, hypotension History of present illness: 66-year-old male who was brought into the emergency room with an altered mental status agitated. Initial evaluation reveals patient to have a high iron gap metabolic acidosis with elevated lactic acid levels. Clinically dehydrated and rhythm strip shows a supraventricular tachycardia presumably atrial tachycardia with AV synchronous pacing. Cardiac consultation obtained. Unable to give any history due to his altered mental status patient is currently in restraints. Past History Past Medical History: atrial fib, heart failure Medications and Allergies Allergies Allergy/AdvReac Type Severity Reaction Status Date / Time No Known Allergies Allergy Verified 04/21/22 14:19 Home Medications Medication Instructions Recorded Confirmed Last Taken Type Baclofen 20 mg PO Q12H PRN #20 tab 04/17/22 Unknown Rx Naproxen 500 mg PO Q12H PRN #30 tab 04/17/22 Unknown Rx metFORMIN [Glucophage] 500 mg PO Q12H #60 tab 04/17/22 Unknown Rx Active Meds: Active Medications Acetaminophen (Acetaminophen 325 Mg Tab) 650 mg PO Q4H PRN PRN Reason: Pain MILD(1-3)/Fever >100.5/KHAN Dextrose (Dextrose 50% In Water (25gm) 50 Ml Syringe) 0 ml IV Q30MIN PRN; Protocol PRN Reason: Hypoglycemia Haloperidol Lactate (Haloperidol Lactate 5 Mg/1 Ml Inj) 5 mg IM Q6HR PRN PRN Reason: Agitation Last Admin: 04/21/22 14:12 Dose: 5 mg Hydromorphone HCl (Hydromorphone 0.5 Mg/0.5 Ml Inj) 0.5 mg IV Q3H PRN PRN Reason: Pain , Severe (7-10) Insulin Human Regular 100 (units/ Sodium Chloride) 100 mls @ 1 mls/hr IV TITR ANALISA; Protocol Last Titration: 04/22/22 10:44 Dose: 0.5 units/hr, 0.5 mls/hr Potassium Chloride/Dextrose/Sod Cl (D5w/0.45% Nacl/Kcl 20 Meq) 20 meq in 1,000 mls @ 125 mls/hr IV DIRECT ANALISA Last Admin: 04/22/22 10:56 Dose: 125 mls/hr Ceftriaxone Sodium (Rocephin/Ns 2 Gm/100 Ml) 2 gm in 100 mls @ 200 mls/hr IV Q24H ANALISA; Protocol Last Admin: 04/22/22 07:58 Dose: 200 mls/hr Potassium Phosphate 30 mmol/ (Sodium Chloride) 510 mls @ 85 mls/hr IV ONCE ONE Stop: 04/22/22 15:29 Last Admin: 04/22/22 10:56 Dose: 85 mls/hr Lorazepam (Lorazepam 2 Mg/Ml Vial) 2 mg IV Q1HR PRN PRN Reason: CIWA-Ar 8-15 Lorazepam (Lorazepam 2 Mg/Ml Vial) 4 mg IV Q1HR PRN PRN Reason: CIWA-Ar 16-25 Metoclopramide HCl (Metoclopramide 10 Mg/2 Ml Inj) 10 mg IV Q6H PRN PRN Reason: Nausea And Vomiting Ondansetron HCl (Ondansetron 4 Mg/2 Ml Inj) 4 mg IV Q8H PRN PRN Reason: Nausea And Vomiting Sodium Chloride (Sodium Chloride 0.9% 10 Ml Flush Syringe) 10 ml IV BID ANALISA Last Admin: 04/22/22 09:01 Dose: 10 ml Sodium Chloride (Sodium Chloride 0.9% 10 Ml Flush Syringe) 10 ml IV PRN PRN PRN Reason: LINE FLUSH Review of Systems ROS unobtainable: due to mental status Physical Examination Vital Signs Temp Pulse Resp BP Pulse Ox 97.5 F L 111 H 18 112/73 100 04/21/22 13:14 04/21/22 13:14 04/21/22 13:14 04/21/22 13:14 04/21/22 13:14 General appearance: mild distress, disheveled (thin malnurished), other HEENT: Positive: PERRL, Normocephaly Neck: Positive: trachea midline. Negative: JVD/HJR Cardiac: Positive: irregularly irregular, S1/S2, PMI, Dilated, Laterally Displaced Lungs: Positive: Rhonchi. Negative: Rales Neuro: Positive: Other (altered mental status in restraints) Male genitourinary: Positive: normal Extremities: Absent: edema Results 04/21/22 13:21 04/22/22 09:34 Cardiac Enzymes 04/21/22 Range/Units 13:21 AST 44 H (5-40) units/L Coagulation 04/21/22 Range/Units 13:21 PT 14.1 (12.2-14.9) Sec. INR 0.98 (0.87-1.13) APTT 22.0 L (24.2-36.6) Sec. CBC 04/21/22 Range/Units 13:21 WBC 6.9 (4.5-11.0) K/mm3 RBC 3.86 (3.65-5.03) M/mm3 Hgb 12.2 (11.8-15.2) gm/dl Hct 37.9 (35.5-45.6) % Plt Count 149 (140-440) K/mm3 Lymph # (Auto) 0.4 L (1.2-5.4) K/mm3 [place] # (Auto) 0.5 (0.0-0.8) K/mm3 Eos # (Auto) 0.0 (0.0-0.4) K/mm3 Baso # (Auto) 0.0 (0.0-0.1) K/mm3 Comprehensive Metabolic Panel 04/21/22 04/21/22 04/22/22 Range/Units 13:21 21:12 03:40 Sodium 149 H D 151 H 149 H (137-145) mmol/L Potassium 4.6 3.5 L D 3.9 (3.6-5.0) mmol/L Chloride 106.6 116.6 H 117.0 H (98-107) mmol/L Carbon Dioxide 12 L 13 L 15 L (22-30) mmol/L BUN 22 H 19 23 H (9-20) mg/dL Creatinine 0.8 0.6 L 0.6 L (0.8-1.3) mg/dL Glucose 402 H 154 H 100 (75-100) mg/dL Calcium 9.4 7.7 L D 8.1 L (8.4-10.2) mg/dL AST 44 H (5-40) units/L ALT 82 H (7-56) units/L Alkaline Phosphatase 119 (35-129) units/L Total Protein 6.5 (6.3-8.2) g/dL Albumin 3.6 L (3.9-5) g/dL 04/22/22 04/22/22 Range/Units 06:00 09:34 Sodium 152 H 151 H (137-145) mmol/L Potassium 4.4 4.5 (3.6-5.0) mmol/L Chloride 118.1 H 117.6 H (98-107) mmol/L Carbon Dioxide 13 L 13 L (22-30) mmol/L BUN 24 H 25 H (9-20) mg/dL Creatinine 0.6 L 0.6 L (0.8-1.3) mg/dL Glucose 94 109 H (75-100) mg/dL Calcium 8.5 8.4 (8.4-10.2) mg/dL AST (5-40) units/L ALT (7-56) units/L Alkaline Phosphatase (35-129) units/L Total Protein (6.3-8.2) g/dL Albumin (3.9-5) g/dL EKG interpretations - Telemetry EKG Rhythm: SVT Assessment and Plan 1. High Anionic gap metabolic acidosis 2. Dehydration 3. Dilated cardiomyopathy unspecified 4. Metabolic and Follow-up with the 5. Presence of BiV ICD Plan. Patient has been started on IV fluids with significant improvement in supraventricular tachycardia. Blood cultures to rule out sepsis. Broad- spectrum antibiotic coverage for now. Echocardiogram to be done to assess global and regional function.
--- NOTE | 2022-04-22 11:39 | Consultation ---
History of Present Illness - Reason for Consult Consult date: 04/22/22 DKA Requesting physician: TATI AGOSTO - History of Present Illness 66 y/o male admitted yesterday via the ED with altered mental state and found to have metabolic acidosis and elevated blood sugars. Concern for DKA. Started on insulin drip and several liters of fluid ordered in ED (6) but only documented a liters under 4 administered. Patient with minimal urine output despite this but has normal renal function. Has significant electrolyte abnormalities as well. Patient is awake, but not able to provide any history. Remainder of the review is unobtainable. Past History Past Medical History: atrial fib, heart failure Medications and Allergies Allergies Allergy/AdvReac Type Severity Reaction Status Date / Time No Known Allergies Allergy Verified 04/21/22 14:19 Home Medications Medication Instructions Recorded Confirmed Last Taken Type Baclofen 20 mg PO Q12H PRN #20 tab 04/17/22 Unknown Rx Naproxen 500 mg PO Q12H PRN #30 tab 04/17/22 Unknown Rx metFORMIN [Glucophage] 500 mg PO Q12H #60 tab 04/17/22 Unknown Rx Active Meds: Active Medications Acetaminophen (Acetaminophen 325 Mg Tab) 650 mg PO Q4H PRN PRN Reason: Pain MILD(1-3)/Fever >100.5/KHAN Dextrose (Dextrose 50% In Water (25gm) 50 Ml Syringe) 0 ml IV Q30MIN PRN; Protocol PRN Reason: Hypoglycemia Haloperidol Lactate (Haloperidol Lactate 5 Mg/1 Ml Inj) 5 mg IM Q6HR PRN PRN Reason: Agitation Last Admin: 04/21/22 14:12 Dose: 5 mg Hydromorphone HCl (Hydromorphone 0.5 Mg/0.5 Ml Inj) 0.5 mg IV Q3H PRN PRN Reason: Pain , Severe (7-10) Insulin Human Regular 100 (units/ Sodium Chloride) 100 mls @ 1 mls/hr IV TITR ANALISA; Protocol Last Titration: 04/22/22 10:44 Dose: 0.5 units/hr, 0.5 mls/hr Potassium Chloride/Dextrose/Sod Cl (D5w/0.45% Nacl/Kcl 20 Meq) 20 meq in 1,000 mls @ 125 mls/hr IV DIRECT ANALISA Last Admin: 04/22/22 10:56 Dose: 125 mls/hr Ceftriaxone Sodium (Rocephin/Ns 2 Gm/100 Ml) 2 gm in 100 mls @ 200 mls/hr IV Q24H ANALISA; Protocol Last Admin: 04/22/22 07:58 Dose: 200 mls/hr Potassium Phosphate 30 mmol/ (Sodium Chloride) 510 mls @ 85 mls/hr IV ONCE ONE Stop: 04/22/22 15:29 Last Admin: 04/22/22 10:56 Dose: 85 mls/hr Magnesium Sulfate (Magnesium Sulfate 2gm/50ml) 2 gm in 50 mls @ 25 mls/hr IV ONCE@1200 ANALISA Stop: 04/22/22 16:00 Lorazepam (Lorazepam 2 Mg/Ml Vial) 2 mg IV Q1HR PRN PRN Reason: CIWA-Ar 8-15 Lorazepam (Lorazepam 2 Mg/Ml Vial) 4 mg IV Q1HR PRN PRN Reason: CIWA-Ar 16-25 Metoclopramide HCl (Metoclopramide 10 Mg/2 Ml Inj) 10 mg IV Q6H PRN PRN Reason: Nausea And Vomiting Ondansetron HCl (Ondansetron 4 Mg/2 Ml Inj) 4 mg IV Q8H PRN PRN Reason: Nausea And Vomiting Sodium Chloride (Sodium Chloride 0.9% 10 Ml Flush Syringe) 10 ml IV BID ANALISA Last Admin: 04/22/22 09:01 Dose: 10 ml Sodium Chloride (Sodium Chloride 0.9% 10 Ml Flush Syringe) 10 ml IV PRN PRN PRN Reason: LINE FLUSH Review of Systems ROS unobtainable: due to mental status Exam - Constitutional Vitals: Temp Pulse Resp BP Pulse Ox 98.7 F 106 H 20 109/79 100 04/22/22 07:32 04/22/22 11:00 04/22/22 11:00 04/22/22 11:00 04/22/22 09:00 General appearance: Present: mild distress, cachectic, disheveled - EENT ENT: hearing intact - Neck Neck: Present: supple - Respiratory Respiratory effort: labored Respiratory: bilateral: CTA - Cardiovascular Rhythm: other (sinus tach) - Extremities Extremities: abnormal (mottled) Results - Labs CBC & Chem 7: 04/21/22 13:21 04/22/22 09:34 Labs: Abnormal lab results 04/21/22 04/21/22 04/21/22 Range/Units 13:21 13:21 13:21 MCV 98 H (84-94) fl RDW 18.0 H (13.2-15.2) % Lymph % (Auto) 5.7 L (13.4-35.0) % [place] % (Auto) 7.9 H (0.0-7.3) % Lymph # (Auto) 0.4 L (1.2-5.4) K/mm3 Seg Neutrophils % 86.3 H (40.0-70.0) % APTT 22.0 L (24.2-36.6) Sec. VBG pH (7.320-7.420) Sodium 149 H D (137-145) mmol/L Potassium (3.6-5.0) mmol/L Chloride (98-107) mmol/L Carbon Dioxide 12 L (22-30) mmol/L BUN 22 H (9-20) mg/dL Creatinine (0.8-1.3) mg/dL Glucose 402 H (75-100) mg/dL POC Glucose (70-105) mg/dL Lactic Acid (0.7-2.0) mmol/L Calcium (8.4-10.2) mg/dL Phosphorus (2.5-4.5) mg/dL AST 44 H (5-40) units/L ALT 82 H (7-56) units/L Ammonia (25-60) umol/L Total Creatine Kinase 257 H (55-170) units/L Troponin T (0.00-0.029) ng/mL Albumin 3.6 L (3.9-5) g/dL Salicylates (2.8-20.0) mg/dL Acetaminophen (10.0-30.0) ug/mL Hepatitis C Antibody (NonReactive) 04/21/22 04/21/22 04/21/22 Range/Units 13:21 13:21 13:21 MCV (84-94) fl RDW (13.2-15.2) % Lymph % (Auto) (13.4-35.0) % [place] % (Auto) (0.0-7.3) % Lymph # (Auto) (1.2-5.4) K/mm3 Seg Neutrophils % (40.0-70.0) % APTT (24.2-36.6) Sec. VBG pH (7.320-7.420) Sodium (137-145) mmol/L Potassium (3.6-5.0) mmol/L Chloride (98-107) mmol/L Carbon Dioxide (22-30) mmol/L BUN (9-20) mg/dL Creatinine (0.8-1.3) mg/dL Glucose (75-100) mg/dL POC Glucose (70-105) mg/dL Lactic Acid 2.30 H* (0.7-2.0) mmol/L Calcium (8.4-10.2) mg/dL Phosphorus (2.5-4.5) mg/dL AST (5-40) units/L ALT (7-56) units/L Ammonia 17.0 L (25-60) umol/L Total Creatine Kinase (55-170) units/L Troponin T (0.00-0.029) ng/mL Albumin (3.9-5) g/dL Salicylates (2.8-20.0) mg/dL Acetaminophen (10.0-30.0) ug/mL Hepatitis C Antibody Reactive A (NonReactive) 04/21/22 04/21/22 04/21/22 Range/Units 13:21 13:21 13:21 MCV (84-94) fl RDW (13.2-15.2) % Lymph % (Auto) (13.4-35.0) % [place] % (Auto) (0.0-7.3) % Lymph # (Auto) (1.2-5.4) K/mm3 Seg Neutrophils % (40.0-70.0) % APTT (24.2-36.6) Sec. VBG pH (7.320-7.420) Sodium (137-145) mmol/L Potassium (3.6-5.0) mmol/L Chloride (98-107) mmol/L Carbon Dioxide (22-30) mmol/L BUN (9-20) mg/dL Creatinine (0.8-1.3) mg/dL Glucose (75-100) mg/dL POC Glucose (70-105) mg/dL Lactic Acid (0.7-2.0) mmol/L Calcium (8.4-10.2) mg/dL Phosphorus (2.5-4.5) mg/dL AST (5-40) units/L ALT (7-56) units/L Ammonia (25-60) umol/L Total Creatine Kinase (55-170) units/L Troponin T 0.537 H* (0.00-0.029) ng/mL Albumin (3.9-5) g/dL Salicylates < 0.3 L (2.8-20.0) mg/dL Acetaminophen 5.0 L (10.0-30.0) ug/mL Hepatitis C Antibody (NonReactive) 04/21/22 04/21/22 04/21/22 Range/Units 13:21 20:33 21:12 MCV (84-94) fl RDW (13.2-15.2) % Lymph % (Auto) (13.4-35.0) % [place] % (Auto) (0.0-7.3) % Lymph # (Auto) (1.2-5.4) K/mm3 Seg Neutrophils % (40.0-70.0) % APTT (24.2-36.6) Sec. VBG pH 7.265 L (7.320-7.420) Sodium (137-145) mmol/L Potassium (3.6-5.0) mmol/L Chloride (98-107) mmol/L Carbon Dioxide (22-30) mmol/L BUN (9-20) mg/dL Creatinine (0.8-1.3) mg/dL Glucose (75-100) mg/dL POC Glucose 162 H (70-105) mg/dL Lactic Acid 6.30 H* (0.7-2.0) mmol/L Calcium (8.4-10.2) mg/dL Phosphorus (2.5-4.5) mg/dL AST (5-40) units/L ALT (7-56) units/L Ammonia (25-60) umol/L Total Creatine Kinase (55-170) units/L Troponin T (0.00-0.029) ng/mL Albumin (3.9-5) g/dL Salicylates (2.8-20.0) mg/dL Acetaminophen (10.0-30.0) ug/mL Hepatitis C Antibody (NonReactive) 04/21/22 04/21/22 04/21/22 Range/Units 21:12 21:32 22:43 MCV (84-94) fl RDW (13.2-15.2) % Lymph % (Auto) (13.4-35.0) % [place] % (Auto) (0.0-7.3) % Lymph # (Auto) (1.2-5.4) K/mm3 Seg Neutrophils % (40.0-70.0) % APTT (24.2-36.6) Sec. VBG pH (7.320-7.420) Sodium 151 H (137-145) mmol/L Potassium 3.5 L D (3.6-5.0) mmol/L Chloride 116.6 H (98-107) mmol/L Carbon Dioxide 13 L (22-30) mmol/L BUN (9-20) mg/dL Creatinine 0.6 L (0.8-1.3) mg/dL Glucose 154 H (75-100) mg/dL POC Glucose 134 H 141 H (70-105) mg/dL Lactic Acid (0.7-2.0) mmol/L Calcium 7.7 L D (8.4-10.2) mg/dL Phosphorus 1.80 L (2.5-4.5) mg/dL AST (5-40) units/L ALT (7-56) units/L Ammonia (25-60) umol/L Total Creatine Kinase (55-170) units/L Troponin T (0.00-0.029) ng/mL Albumin (3.9-5) g/dL Salicylates (2.8-20.0) mg/dL Acetaminophen (10.0-30.0) ug/mL Hepatitis C Antibody (NonReactive) 04/21/22 04/22/22 04/22/22 Range/Units 23:43 00:47 01:39 MCV (84-94) fl RDW (13.2-15.2) % Lymph % (Auto) (13.4-35.0) % [place] % (Auto) (0.0-7.3) % Lymph # (Auto) (1.2-5.4) K/mm3 Seg Neutrophils % (40.0-70.0) % APTT (24.2-36.6) Sec. VBG pH (7.320-7.420) Sodium (137-145) mmol/L Potassium (3.6-5.0) mmol/L Chloride (98-107) mmol/L Carbon Dioxide (22-30) mmol/L BUN (9-20) mg/dL Creatinine (0.8-1.3) mg/dL Glucose (75-100) mg/dL POC Glucose 147 H 151 H 156 H (70-105) mg/dL Lactic Acid (0.7-2.0) mmol/L Calcium (8.4-10.2) mg/dL Phosphorus (2.5-4.5) mg/dL AST (5-40) units/L ALT (7-56) units/L Ammonia (25-60) umol/L Total Creatine Kinase (55-170) units/L Troponin T (0.00-0.029) ng/mL Albumin (3.9-5) g/dL Salicylates (2.8-20.0) mg/dL Acetaminophen (10.0-30.0) ug/mL Hepatitis C Antibody (NonReactive) 04/22/22 04/22/22 04/22/22 Range/Units 02:29 03:40 03:40 MCV (84-94) fl RDW (13.2-15.2) % Lymph % (Auto) (13.4-35.0) % [place] % (Auto) (0.0-7.3) % Lymph # (Auto) (1.2-5.4) K/mm3 Seg Neutrophils % (40.0-70.0) % APTT (24.2-36.6) Sec. VBG pH (7.320-7.420) Sodium 149 H (137-145) mmol/L Potassium (3.6-5.0) mmol/L Chloride 117.0 H (98-107) mmol/L Carbon Dioxide 15 L (22-30) mmol/L BUN 23 H (9-20) mg/dL Creatinine 0.6 L (0.8-1.3) mg/dL Glucose (75-100) mg/dL POC Glucose 124 H (70-105) mg/dL Lactic Acid 8.50 H* (0.7-2.0) mmol/L Calcium 8.1 L (8.4-10.2) mg/dL Phosphorus (2.5-4.5) mg/dL AST (5-40) units/L ALT (7-56) units/L Ammonia (25-60) umol/L Total Creatine Kinase (55-170) units/L Troponin T (0.00-0.029) ng/mL Albumin (3.9-5) g/dL Salicylates (2.8-20.0) mg/dL Acetaminophen (10.0-30.0) ug/mL Hepatitis C Antibody (NonReactive) 04/22/22 04/22/22 04/22/22 Range/Units 04:32 05:30 06:00 MCV (84-94) fl RDW (13.2-15.2) % Lymph % (Auto) (13.4-35.0) % [place]rick % (Auto) (0.0-7.3) % Lymph # (Auto) (1.2-5.4) K/mm3 Seg Neutrophils % (40.0-70.0) % APTT (24.2-36.6) Sec. VBG pH (7.320-7.420) Sodium 152 H (137-145) mmol/L Potassium (3.6-5.0) mmol/L Chloride 118.1 H (98-107) mmol/L Carbon Dioxide 13 L (22-30) mmol/L BUN 24 H (9-20) mg/dL Creatinine 0.6 L (0.8-1.3) mg/dL Glucose (75-100) mg/dL POC Glucose 165 H 109 H (70-105) mg/dL Lactic Acid (0.7-2.0) mmol/L Calcium (8.4-10.2) mg/dL Phosphorus (2.5-4.5) mg/dL AST (5-40) units/L ALT (7-56) units/L Ammonia (25-60) umol/L Total Creatine Kinase (55-170) units/L Troponin T (0.00-0.029) ng/mL Albumin (3.9-5) g/dL Salicylates (2.8-20.0) mg/dL Acetaminophen (10.0-30.0) ug/mL Hepatitis C Antibody (NonReactive) 04/22/22 04/22/22 04/22/22 Range/Units 06:00 06:30 07:35 MCV (84-94) fl RDW (13.2-15.2) % Lymph % (Auto) (13.4-35.0) % [place] % (Auto) (0.0-7.3) % Lymph # (Auto) (1.2-5.4) K/mm3 Seg Neutrophils % (40.0-70.0) % APTT (24.2-36.6) Sec. VBG pH (7.320-7.420) Sodium (137-145) mmol/L Potassium (3.6-5.0) mmol/L Chloride (98-107) mmol/L Carbon Dioxide (22-30) mmol/L BUN (9-20) mg/dL Creatinine (0.8-1.3) mg/dL Glucose (75-100) mg/dL POC Glucose 109 H 126 H (70-105) mg/dL Lactic Acid 9.80 H* (0.7-2.0) mmol/L Calcium (8.4-10.2) mg/dL Phosphorus (2.5-4.5) mg/dL AST (5-40) units/L ALT (7-56) units/L Ammonia (25-60) umol/L Total Creatine Kinase (55-170) units/L Troponin T (0.00-0.029) ng/mL Albumin (3.9-5) g/dL Salicylates (2.8-20.0) mg/dL Acetaminophen (10.0-30.0) ug/mL Hepatitis C Antibody (NonReactive) 04/22/22 04/22/22 04/22/22 Range/Units 08:35 09:34 09:34 MCV (84-94) fl RDW (13.2-15.2) % Lymph % (Auto) (13.4-35.0) % [place] % (Auto) (0.0-7.3) % Lymph # (Auto) (1.2-5.4) K/mm3 Seg Neutrophils % (40.0-70.0) % APTT (24.2-36.6) Sec. VBG pH (7.320-7.420) Sodium 151 H (137-145) mmol/L Potassium (3.6-5.0) mmol/L Chloride 117.6 H (98-107) mmol/L Carbon Dioxide 13 L (22-30) mmol/L BUN 25 H (9-20) mg/dL Creatinine 0.6 L (0.8-1.3) mg/dL Glucose 109 H (75-100) mg/dL POC Glucose 106 H (70-105) mg/dL Lactic Acid 10.90 H* (0.7-2.0) mmol/L Calcium (8.4-10.2) mg/dL Phosphorus (2.5-4.5) mg/dL AST (5-40) units/L ALT (7-56) units/L Ammonia (25-60) umol/L Total Creatine Kinase (55-170) units/L Troponin T (0.00-0.029) ng/mL Albumin (3.9-5) g/dL Salicylates (2.8-20.0) mg/dL Acetaminophen (10.0-30.0) ug/mL Hepatitis C Antibody (NonReactive) - Imaging and Cardiology Chest x-ray: image reviewed (mild cardiolgy megaly with clear lung lara)
[2022-04-22] MEDS ORDERED: MAGNESIUM SULFATE 2 GM/50 ML BAG IV SCH (12:00)
[2022-04-22 12:35] LABS: ABG Base Excess -13.5 mmol/L (-2.0-3.0); ABG HCO3 13.7 mmol/L (20.0-26.0); ABG Methemoglobin 0.7 % (0.0-1.5); ABG Oxygen Saturation 18.5 % (95.0-99.0); ABG PCO2 36.8 mm Hg
[2022-04-22 12:37] LABS: ABG PH 7.19 pH Units (7.350-7.450); ABG PO2 20.2 mm Hg (80.0-90.0)
[2022-04-22 13:30] LABS: Hemoglobin 11.2 gm/dl (11.8-15.2); Mean Corpuscular HGB Conc 32 % (32-34); Mean Corpuscular Volume 99 fl (84-94); Red Blood Count 3.53 M/mm3 (3.65-5.03); Red Cell Distribution Width 18.2 % (13.2-15.2)
[2022-04-22 13:32] LABS: Platelet Count 97 K/mm3 (140-440)
[2022-04-22] MEDS ORDERED: SODIUM BICARB 8.4% 50 MEQ/50 ML SYRINGE IV ONE ×3 (13:40→20:08)
--- NOTE | 2022-04-22 14:43 | Electrocardiograph Report ---
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
--- NOTE | 2022-04-22 14:44 | Electrocardiograph Report ---
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
[2022-04-22 16:11] LABS: Creatine Kinase MB 30.3 ng/mL (0.0-4.0)
[2022-04-22 16:12] LABS: Blood Urea Nitrogen 26 mg/dL (9-20); Calcium 8.2 mg/dL (8.4-10.2); Hemolysis Index 167
--- NOTE | 2022-04-22 16:26 | Progress Note ---
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, global atrophy -CT C-spine shows no acute fracture or subluxation in the spine and neutral position Cardiac: ST, Elevated troponin, h/o Cardiomypathy s/p AICD -Cardiology consulted, appreciate recommendations -Blood pressure monitoring per protocol -Aspirin, lipitor -Echocardiogram pending -Initial troponin 0.537 -Trend troponin Respiratory: Acute hypoxic respiratory failure -CCM consulted, appreciate recommendations -Monitor oxygen as needed -Pulmonary hygiene -SPO2 monitoring GI: Moderate protein calorie malnutrition, Hep C, transaminitis -Patient is cachectic appearing -NPO except meds -Trend LFTs -Abdominal ultrasound pending : Hypophosphatemia, Hypernatremia, metabolic acidosis -Monitor I&O -Renally dose medications -Avoid nephrotoxic medications -Trend BMP ID: SIRs, Lactic Acidosis -Presented with tachycardia, Lactic acidosis -Antibiotic therapy with rocephin -HIV pending -f/u blood culture -Monitor WBC and temperature curve Endo: DKA, h/o DM -DKA protocol -Presented with VBG 7.2, hypernatremia, anion gap 31, BG 402 -Insulin gtt -Accu-Cheks per protocol -CC diet when able -Long-acting insulin and SSI when able Heme: Thrombocytopenia -Trend CBC -Transfuse hemoglobin less than 7 -SCDs to BLE while in bed The high probability of a clinically significant, sudden or life threatening deterioration of the [multi] system(s) required my full and direct attention, in tervention and personal management. The aggregate critical care time was [60] minutes. This time is in addition to time spent performing reported procedures but includes the following: [x] Data Review and interpretation [x] Patient assessment and monitoring of vital signs [x] Documentation [x] Medication orders and management Disposition Plan: icu Total Time Spent with Patient (Minutes): 60 History Interval history: This is a 66-year-old male with DM, cardiomegaly s/p bivalve ICD and noncompliance who presented to emergency department on 04/21 with altered mental status via EMS who was found in the yard yesterday by bystander. Work-up in the emergency department revealed blood glucose greater than 400, metabolic acidosis with CO2 of 12, anion gap of 35 and elevated troponin, lactic acidosis and transaminitis. Patient was admitted to the hospital service with DKA and was noted to have hepatitis C viral infection with consults to cardiology and [facility]. Hospital course to date: 04/22: [facility] ordered abdominal ultrasound, bladder scan completed which showed 100 cc of urine so we will continue condom cath. [facility] would like to also check for HIV. Patient given LR bolus and bicarb. On exam patient is cold and mottled to bilateral lower extremities. Stat echocardiogram ordered. Patient also started on CIWA protocol. We will continue broad-spectrum antibiotics for now. Hospitalist Physical - Constitutional Vitals: Temp Pulse Resp BP Pulse Ox 90.1 F L 100 H 44 H 93/61 91 04/22/22 12:00 04/22/22 15:00 04/22/22 15:00 04/22/22 15:00 04/22/22 15:00 General appearance: Present: mild distress, cachectic, disheveled - EENT Eyes: Present: PERRL ENT: poor dentition - Neck Neck: Present: normal ROM - Respiratory Respiratory effort: normal Respiratory: bilateral: CTA - Cardiovascular Rhythm: regular Heart Sounds: Present: S1 & S2. Absent: systolic murmur, diastolic murmur - Extremities Extremities: pulses intact, pulses symmetrical Extremity abnormal: erythema, cold Peripheral Pulses: within normal limits - Abdominal General gastrointestinal: soft, non-tender, non-distended, normal bowel sounds - Integumentary Integumentary: Present: warm, dry - Psychiatric Psychiatric: other - Neurologic Neurologic: other (KOEHLER spontaneously, does not follow commands, minimal response to verbal stimuli) - Allied Health Allied health notes reviewed: nursing, RT HEART Score - HEART Score Troponin: Troponin T 0.537 ng/mL (0.00-0.029) H* 04/21/22 13:21 Results - Labs CBC & Chem 7: 04/22/22 11:22 04/22/22 09:34 Labs: Laboratory Last Values WBC 5.1 K/mm3 (4.5-11.0) 04/22/22 11:22 RBC 3.53 M/mm3 (3.65-5.03) L 04/22/22 11:22 Hgb 11.2 gm/dl (11.8-15.2) L 04/22/22 11:22 Hct 35.0 % (35.5-45.6) L 04/22/22 11:22 MCV 99 fl (84-94) H 04/22/22 11:22 MCH 32 pg (28-32) 04/22/22 11:22 MCHC 32 % (32-34) 04/22/22 11:22 RDW 18.2 % (13.2-15.2) H 04/22/22 11:22 Plt Count 97 K/mm3 (140-440) L 04/22/22 11:22 Lymph % (Auto) 5.7 % (13.4-35.0) L 04/21/22 13:21 Morrison % (Auto) 7.9 % (0.0-7.3) H 04/21/22 13:21 Eos % (Auto) 0.0 % (0.0-4.3) 04/21/22 13:21 Baso % (Auto) 0.1 % (0.0-1.8) 04/21/22 13:21 Lymph # (Auto) 0.4 K/mm3 (1.2-5.4) L 04/21/22 13:21 Morrison # (Auto) 0.5 K/mm3 (0.0-0.8) 04/21/22 13:21 Eos # (Auto) 0.0 K/mm3 (0.0-0.4) 04/21/22 13:21 Baso # (Auto) 0.0 K/mm3 (0.0-0.1) 04/21/22 13:21 Seg Neutrophils % 86.3 % (40.0-70.0) H 04/21/22 13: Seg Neutrophils # 6.0 K/mm3 (1.8-7.7) 04/21/22 13:21 PT 14.1 Sec. (12.2-14.9) 04/21/22 13:21 INR 0.98 (0.87-1.13) 04/21/22 13:21 APTT 22.0 Sec. (24.2-36.6) L 04/21/22 13:21 ABG pH 7.190 pH Units (7.350-7.450) L* 04/22/22 12:25 ABG pCO2 36.8 mm Hg 04/22/22 12:25 ABG pO2 20.2 mm Hg (80.0-90.0) L* 04/22/22 12:25 ABG HCO3 13.7 mmol/L (20.0-26.0) L 04/22/22 12:25 ABG O2 Saturation 18.5 % (95.0-99.0) L 04/22/22 12:25 ABG O2 Content 2.9 (0.0-44) 04/22/22 12:25 ABG Base Excess -13.5 mmol/L (-2.0-3.0) L 04/22/22 12:25 ABG Hemoglobin 11.2 gm/dl (14.0-18.0) L 04/22/22 12:25 ABG Carboxyhemoglobin 1.3 % (0.0-5.0) 04/22/22 12:25 ABG Methemoglobin 0.7 % (0.0-1.5) 04/22/22 12:25 VBG pH 7.265 (7.320-7.420) L 04/21/22 13:21 Oxyhemoglobin 18.2 % (95.0-99.0) L 04/22/22 12:25 FiO2 21 % 04/22/22 12:25 Sodium 151 mmol/L (137-145) H 04/22/22 09:34 Potassium 4.5 mmol/L (3.6-5.0) 04/22/22 09:34 Chloride 117.6 mmol/L (98-107) H 04/22/22 09:34 Carbon Dioxide 13 mmol/L (22-30) L 04/22/22 09:34 Anion Gap 25 mmol/L 04/22/22 09:34 BUN 25 mg/dL (9-20) H 04/22/22 09:34 Creatinine 0.6 mg/dL (0.8-1.3) L 04/22/22 09:34 Estimated GFR > 60 ml/min 04/22/22 09:34 BUN/Creatinine Ratio 42 % 04/22/22 09:34 Glucose 109 mg/dL (75-100) H 04/22/22 09:34 POC Glucose 109 mg/dL (70-105) H 04/22/22 13:44 Lactic Acid 9.10 mmol/L (0.7-2.0) H* 04/22/22 13:14 Calcium 8.4 mg/dL (8.4-10.2) 04/22/22 09:34 Phosphorus 1.80 mg/dL (2.5-4.5) L 04/21/22 21:12 Magnesium 1.70 mg/dL (1.7-2.3) 04/21/22 21:12 Total Bilirubin 0.60 mg/dL (0.1-1.2) 04/21/22 13:21 AST 44 units/L (5-40) H 04/21/22 13:21 ALT 82 units/L (7-56) H 04/21/22 13:21 Alkaline Phosphatase 119 units/L (35-129) 04/21/22 13:21 Ammonia 17.0 umol/L (25-60) L 04/21/22 13:21 Total Creatine Kinase 257 units/L (55-170) H 04/21/22 13:21 Troponin T 0.537 ng/mL (0.00-0.029) H* 04/21/22 13:21 Total Protein 6.5 g/dL (6.3-8.2) 04/21/22 13:21 Albumin 3.6 g/dL (3.9-5) L 04/21/22 13:21 Albumin/Globulin Ratio 1.2 % 04/21/22 13:21 TSH 3.310 mlU/mL (0.270-4.200) 04/21/22 13:21 Urine Color Straw (Yellow) 04/21/22 Unknown Urine Turbidity Clear (Clear) 04/21/22 Unknown Urine pH 5.0 (5.0-7.0) 04/21/22 Unknown Ur Specific [place] 1.020 (1.003-1.030) 04/21/22 Unknown Urine Protein 100 mg/dl mg/dL (Negative) 04/21/22 Unknown Urine Glucose (UA) 500 mg/dL (Negative) 04/21/22 Unknown Urine Ketones 160 mg/dL (Negative) 04/21/22 Unknown Urine Blood Trace (Negative) 04/21/22 Unknown Urine Nitrite Negative (Negative) 04/21/22 Unknown Ur Reducing Substances Not Reportable 04/21/22 Unknown Urine Bilirubin Negative (Negative) 04/21/22 Unknown Urine Ictotest Not Reportable 04/21/22 Unknown Urine Urobilinogen < 2.0 mg/dL (<2.0) 04/21/22 Unknown Ur Leukocyte Esterase Negative (Negative) 04/21/22 Unknown Urine WBC (Auto) 4.0 /HPF (0.0-6.0) 04/21/22 Unknown Urine RBC (Auto) 2.0 /HPF (0.0-6.0) 04/21/22 Unknown U Epithel Cells (Auto) 1.0 /HPF (0-13.0) 04/21/22 Unknown Urine Mucus Few /HPF 04/21/22 Unknown Salicylates < 0.3 mg/dL (2.8-20.0) L 04/21/22 13:21 Urine Opiates Screen Presumptive negative 04/21/22 13:38 Urine Methadone Screen Presumptive negative 04/21/22 13:38 Acetaminophen 5.0 ug/mL (10.0-30.0) L 04/21/22 13:21 Ur Barbiturates Screen Presumptive negative 04/21/22 13:38 Ur Phencyclidine Scrn Presumptive negative 04/21/22 13:38 Ur Amphetamines Screen Presumptive negative 04/21/22 13:38 U Benzodiazepines Scrn Presumptive negative 04/21/22 13:38 Urine Cocaine Screen Presumptive negative 04/21/22 13:38 U Marijuana (THC) Screen Presumptive negative 04/21/22 13:38 Drugs of Abuse Note Disclamer 04/21/22 13:38 Plasma/Serum Alcohol < 0.01 % (0-0.07) 04/21/22 13:21 Hepatitis A IgM Ab Non-reactive (NonReactive) 04/21/22 13:21 Hep Bs Antigen Non-reactive (Negative) 04/21/22 13:21 Hep B Core IgM Ab Non-reactive (NonReactive) 04/21/22 13:21 Hepatitis C Antibody Reactive (NonReactive) A 04/21/22 13:21 Microbiology: Microbiology 04/21/22 13:21 Peripheral/Venous Blood Culture - Preliminary NO GROWTH AFTER 24 HOURS 04/21/22 13:21 Peripheral/Venous Blood Culture - Preliminary NO GROWTH AFTER 24 HOURS Stout/IV: Voiding Method Condom Catheter Active Medications - Current Medications Current Medications: Generic Name Dose Route Start Last Admin Trade Name Freq PRN Reason Stop Dose Admin Acetaminophen 650 mg 04/22/22 01:44 Acetaminophen 325 Mg Tab PO Q4H PRN Pain MILD(1-3)/Fever >100.5/KHAN Aspirin 300 mg 04/22/22 15:00 Aspirin 300 Mg Rect Supp TX QDAY ANALISA Atorvastatin Calcium 40 mg 04/22/22 22:00 Atorvastatin 40 Mg Tab PO QHS ANALISA Dextrose 0 ml 04/21/22 14:18 Dextrose 50% In Water (25gm) 50 Ml Syringe IV Q30MIN PRN Hypoglycemia Protocol Haloperidol Lactate 5 mg 04/21/22 13:56 04/21/22 14:12 Haloperidol Lactate 5 Mg/1 Ml Inj IM 5 mg Q6HR PRN Administration Agitation Hydromorphone HCl 0.5 mg 04/22/22 01:44 Hydromorphone 0.5 Mg/0.5 Ml Inj IV Q3H PRN Pain , Severe (7-10) Insulin Human Regular 100 100 mls @ 1 mls/hr 04/21/22 15:00 04/22/22 13:44 units/ Sodium Chloride IV 0.5 units/hr TITR ANALISA 0.5 mls/hr Titration Protocol 1 UNITS/HR Potassium Chloride/Dextrose/Sod Cl 20 meq in 1,000 mls @ 125 mls/hr 04/21/22 15:00 04/22/22 10:56 D5w/0.45% Nacl/Kcl 20 Meq IV 125 mls/hr DIRECT ANALISA Administration Ceftriaxone Sodium 2 gm in 100 mls @ 200 mls/hr 04/22/22 08:30 04/22/22 07:58 Rocephin/Ns 2 Gm/100 Ml IV 200 mls/hr Q24H ANALISA Administration Protocol Lorazepam 2 mg 04/22/22 11:00 Lorazepam 2 Mg/Ml Vial IV Q1HR PRN CIWA-Ar 8-15 Lorazepam 4 mg 04/22/22 11:00 04/22/22 11:58 Lorazepam 2 Mg/Ml Vial IV 4 mg Q1HR PRN Administration CIWA-Ar 16-25 Metoclopramide HCl 10 mg 04/22/22 01:44 Metoclopramide 10 Mg/2 Ml Inj IV Q6H PRN Nausea And Vomiting Ondansetron HCl 4 mg 04/22/22 01:44 Ondansetron 4 Mg/2 Ml Inj IV Q8H PRN Nausea And Vomiting Sodium Chloride 10 ml 04/22/22 10:00 04/22/22 09:01 Sodium Chloride 0.9% 10 Ml Flush Syringe IV 10 ml BID ANALISA Administration Sodium Chloride 10 ml 04/22/22 01:44 Sodium Chloride 0.9% 10 Ml Flush Syringe IV PRN PRN LINE FLUSH Nutrition/Malnutrition Assess - Dietary Evaluation Nutrition/Malnutrition Findings: Nutrition Notes Start: 04/22/22 09:41 Freq: Status: Active Protocol: Document 04/22/22 09:41 OPAL (Rec: 04/22/22 09:48 OPAL [id number]) Nutrition Notes Need for Assessment generated from: MD Order,talent assistant,MST Initial or Follow up Assessment Current Diagnosis Diabetes Other Pertinent Diagnosis DKA, AMS Current Diet NPO Labs/Tests Na 152 BUN 24 BG was 402 upon admission Pertinent Medications Insulin gtt 30mmol KPhos x 1 dose D5 1/2NS + 20mEq KCl at 125ml/ hr Height 5 ft 8 in Weight 63.503 kg [place] Body Weight (kg) 70.00 BMI 21.2 Weight Status Underweight Subjective/Other Information RD consulted for diet education; pt also screened for malnutrition risk. Pt not appropriate for diet education at this time. He was recently admitted to this ED (04/16); has hx of medication noncompliance. Burn Absent Trauma Absent GI Symptoms Nausea Skin Integrity/Comment No skin breakdown reported Minimum of two criteria No Fluid Accumulation Moderate to Severe (severe) #1 Nutrition Diagnosis Inadequate oral intake Etiology DKA As Evidenced by Signs and Symptoms pt NPO Is patient on ventilator? No Is Patient Ambulatory and/or Out of Bed No REE-([facility]-confined to bed) 1673.004 Kcal/Kg value to use for calculation 29 Approximate Energy Requirements Using 1842 kcal/Kg Calculation Used for Recommendations Kcal/kg Additional Notes Pro needs 1.2-2g/k-127g/ day Fluid needs 1ml/kcal Nutrition Intervention Change Diet Order: Advance diet to Consistent CHO when medically feasible Goal #1 Diet advancement to meet nutrient needs Goal #2 Adherence to CHO-controlled diet Anticipated Discharge Needs: CHO-controlled diet Follow-Up By: 04/26/22 Additional Comments F/U: diet advancement, diet education needs <FRANSISCA SANON - Last Filed: 04/30/22 11:30> History Interval history: I saw and evaluated the patient. I agree with the findings and the plan of care as documented in the Nurse Practitioner's~note, with the following corrections and additions. Hospitalist Physical - Constitutional Vitals: Temp Pulse Resp BP Pulse Ox 99.5 F 70 0 L 90/49 0 L 04/25/22 12:00 04/25/22 15:00 04/25/22 15:30 04/25/22 16:00 04/25/22 14:57 HEART Score - HEART Score Troponin: Troponin T 2.840 ng/mL (0.00-0.029) H* D 04/23/22 10:46 Results - Labs CBC & Chem 7: 04/25/22 03:40 04/25/22 12:45 Labs: Laboratory Last Values WBC 7.1 K/mm3 (4.5-11.0) 04/25/22 03:40 RBC 2.89 M/mm3 (3.65-5.03) L 04/25/22 03:40 Hgb 9.1 gm/dl (11.8-15.2) L 04/25/22 03:40 Hct 29.9 % (35.5-45.6) L 04/25/22 03:40 MCV 103 fl (84-94) H 04/25/22 03:40 MCH 31 pg (28-32) 04/25/22 03:40 MCHC 30 % (32-34) L 04/25/22 03:40 RDW 19.6 % (13.2-15.2) H 04/25/22 03:40 Plt Count 46 K/mm3 (140-440) L 04/25/22 03:40 Lymph % (Auto) 5.7 % (13.4-35.0) L 04/21/22 13:21 Morrison % (Auto) 7.9 % (0.0-7.3) H 04/21/22 13:21 Eos % (Auto) 0.0 % (0.0-4.3) 04/21/22 13:21 Baso % (Auto) 0.1 % (0.0-1.8) 04/21/22 13:21 Lymph # (Auto) 0.4 K/mm3 (1.2-5.4) L 04/21/22 13:21 Morrison # (Auto) 0.5 K/mm3 (0.0-0.8) 04/21/22 13:21 Eos # (Auto) 0.0 K/mm3 (0.0-0.4) 04/21/22 13:21 Baso # (Auto) 0.0 K/mm3 (0.0-0.1) 04/21/22 13:21 Add Manual Diff Complete 04/22/22 11:22 Total Counted 100 04/22/22 11:22 Seg Neutrophils % 86.3 % (40.0-70.0) H 04/21/22 13: Seg Neuts % (Manual) 82.0 % (40.0-70.0) H 04/22/22 11:22 Band Neutrophils % 6.0 % 04/22/22 11:22 Lymphocytes % (Manual) 6.0 % (13.4-35.0) L 04/22/22 11:22 Reactive Lymphs % (Man) 0 % 04/22/22 11:22 Monocytes % (Manual) 4.0 % (0.0-7.3) 04/22/22 11:22 Eosinophils % (Manual) 1.0 % (0.0-4.3) 04/22/22 11:22 Basophils % (Manual) 0 % (0.0-1.8) 04/22/22 11:22 Metamyelocytes % 1.0 % 04/22/22 11:22 Myelocytes % 0 % 04/22/22 11:22 Promyelocytes % 0 % 04/22/22 11:22 Blast Cells % 0 % 04/22/22 11:22 Nucleated RBC % Not Reportable 04/22/22 11:22 Seg Neutrophils # 6.0 K/mm3 (1.8-7.7) 04/21/22 13: Seg Neutrophils # Man 4.2 K/mm3 (1.8-7.7) 04/22/22 11:22 Band Neutrophils # 0.3 K/mm3 04/22/22 11:22 Lymphocytes # (Manual) 0.3 K/mm3 (1.2-5.4) L 04/22/22 11:22 Abs React Lymphs (Man) 0.0 K/mm3 04/22/22 11:22 Monocytes # (Manual) 0.2 K/mm3 (0.0-0.8) 04/22/22 11:22 Eosinophils # (Manual) 0.1 K/mm3 (0.0-0.4) 04/22/22 11:22 Basophils # (Manual) 0.0 K/mm3 (0.0-0.1) 04/22/22 11:22 Metamyelocytes # 0.1 K/mm3 04/22/22 11:22 Myelocytes # 0.0 K/mm3 04/22/22 11:22 Promyelocytes # 0.0 K/mm3 04/22/22 11:22 Blast Cells # 0.0 K/mm3 04/22/22 11:22 WBC Morphology Not Reportable 04/22/22 11:22 Hypersegmented Neuts Not Reportable 04/22/22 11:22 Hyposegmented Neuts Not Reportable 04/22/22 11:22 Hypogranular Neuts Not Reportable 04/22/22 11:22 Smudge Cells Not Reportable 04/22/22 11:22 Toxic Granulation Not Reportable 04/22/22 11:22 Toxic Vacuolation Not Reportable 04/22/22 11:22 Dohle Bodies Not Reportable 04/22/22 11:22 Pelger-Huet Anomaly Not Reportable 04/22/22 11:22 Benoit Rods Not Reportable 04/22/22 11:22 Platelet Estimate Consistent w auto 04/22/22 11:22 Clumped Platelets Not Reportable 04/22/22 11:22 Plt Clumps, EDTA Not Reportable 04/22/22 11:22 Large Platelets Not Reportable 04/22/22 11:22 Giant Platelets Not Reportable 04/22/22 11:22 Platelet Satelliting Not Reportable 04/22/22 11:22 Plt Morphology Comment Not Reportable 04/22/22 11:22 RBC Morphology Normal 04/22/22 11:22 Dimorphic RBCs Not Reportable 04/22/22 11:22 Polychromasia Not Reportable 04/22/22 11:22 Hypochromasia Not Reportable 04/22/22 11:22 Poikilocytosis Not Reportable 04/22/22 11:22 Anisocytosis Not Reportable 04/22/22 11:22 Microcytosis Not Reportable 04/22/22 11:22 Macrocytosis Not Reportable 04/22/22 11:22 Spherocytes Not Reportable 04/22/22 11:22 Pappenheimer Bodies Not Reportable 04/22/22 11:22 Sickle Cells Not Reportable 04/22/22 11:22 Target Cells Not Reportable 04/22/22 11:22 Tear Drop Cells Not Reportable 04/22/22 11:22 Ovalocytes Not Reportable 04/22/22 11:22 Helmet Cells Not Reportable 04/22/22 11:22 [place] Bodies Not Reportable 04/22/22 11:22 [place] Rings Not Reportable 04/22/22 11:22 [place] Cells Not Reportable 04/22/22 11:22 Bite Cells Not Reportable 04/22/22 11:22 Crenated Cell Not Reportable 04/22/22 11:22 Elliptocytes Not Reportable 04/22/22 11:22 Acanthocytes (Spur) Not Reportable 04/22/22 11:22 Rouleaux Not Reportable 04/22/22 11:22 Hemoglobin C Crystals Not Reportable 04/22/22 11:22 Schistocytes Not Reportable 04/22/22 11:22 Malaria parasites Not Reportable 04/22/22 11:22 James Bodies Not Reportable 04/22/22 11:22 Hem Pathologist Commnt No 04/22/22 11:22 PT 38.0 Sec. (12.2-14.9) H 04/22/22 19:58 INR 3.29 (0.87-1.13) H 04/22/22 19:58 APTT 236.4 Sec. (24.2-36.6) H* 04/22/22 19:58 Heparin Anti-Xa Level < 0.10 U.I./ml (0.3-0.7) L 04/24/22 06:00 ABG pH 7.167 pH Units (7.350-7.450) L* 04/25/22 03:15 ABG pCO2 40.9 mm Hg 04/25/22 03:15 ABG pO2 95.3 mm Hg (80.0-90.0) H 04/25/22 03:15 ABG HCO3 14.5 mmol/L (20.0-26.0) L 04/25/22 03:15 ABG O2 Saturation 95.4 % (95.0-99.0) 04/25/22 03:15 ABG O2 Content 11.5 (0.0-44) 04/25/22 03:15 ABG Base Excess -13.2 mmol/L (-2.0-3.0) L 04/25/22 03:15 ABG Hemoglobin 8.5 gm/dl (14.0-18.0) L 04/25/22 03:15 ABG Carboxyhemoglobin 1.2 % (0.0-5.0) 04/25/22 03:15 ABG Methemoglobin 0.1 % (0.0-1.5) 04/25/22 03:15 VBG pH 7.265 (7.320-7.420) L 04/21/22 13:21 Oxyhemoglobin 94.1 % (95.0-99.0) L 04/25/22 03:15 FiO2 90 % 04/25/22 03:15 Sodium 157 mmol/L (137-145) H 04/25/22 12:45 Potassium 5.5 mmol/L (3.6-5.0) H 04/25/22 12:45 Chloride 106.6 mmol/L (98-107) 04/25/22 12:45 Carbon Dioxide 12 mmol/L (22-30) L 04/25/22 12:45 Anion Gap 44 mmol/L 04/25/22 12:45 BUN 43 mg/dL (9-20) H 04/25/22 12:45 Creatinine 3.4 mg/dL (0.8-1.3) H 04/25/22 12:45 Estimated GFR 18 ml/min 04/25/22 12:45 BUN/Creatinine Ratio 13 % 04/25/22 12:45 Glucose 95 mg/dL (75-100) 04/25/22 12:45 POC Glucose 85 mg/dL (70-105) 04/25/22 12:43 Hemoglobin A1c 15.4 % (4-6) H 04/22/22 09:34 Lactic Acid 11.60 mmol/L (0.7-2.0) H* 04/24/22 Unknown Calcium 5.7 mg/dL (8.4-10.2) L* 04/25/22 12:45 Phosphorus 8.90 mg/dL (2.5-4.5) H 04/25/22 03:40 Magnesium 2.10 mg/dL (1.7-2.3) 04/25/22 03:40 Total Bilirubin 3.00 mg/dL (0.1-1.2) H 04/25/22 03:40 Direct Bilirubin 2.1 mg/dL (0-0.2) H 04/24/22 06:00 Indirect Bilirubin 0.2 mg/dL 04/24/22 06:00 AST 18606 units/L (5-40) H 04/25/22 03:40 ALT 4800 units/L (7-56) H 04/25/22 03:40 Alkaline Phosphatase 205 units/L (35-129) H 04/25/22 03:40 Ammonia 17.0 umol/L (25-60) L 04/21/22 13:21 Total Creatine Kinase 1942 units/L (55-170) H 04/23/22 10:46 CK-MB (CK-2) 106.7 ng/mL (0.0-4.0) H 04/23/22 10:46 CK-MB (CK-2) Rel Index 5.4 (0-4) H 04/23/22 10:46 Troponin T 2.840 ng/mL (0.00-0.029) H* D 04/23/22 10:46 Total Protein 3.1 g/dL (6.3-8.2) L 04/25/22 03:40 Albumin 1.7 g/dL (3.9-5) L 04/25/22 03:40 Albumin/Globulin Ratio 1.2 % 04/25/22 03:40 Triglycerides 139 mg/dL (2-149) 04/21/22 13:21 Cholesterol 189 mg/dL (50-199) 04/21/22 13:21 LDL Cholesterol Direct 104 mg/dL (50-130) 04/21/22 13:21 HDL Cholesterol 47 mg/dL (40-59) 04/21/22 13:21 Cholesterol/HDL Ratio 4.02 % 04/21/22 13:21 TSH 3.310 mlU/mL (0.270-4.200) 04/21/22 13:21 Urine Color Straw (Yellow) 04/21/22 Unknown Urine Turbidity Clear (Clear) 04/21/22 Unknown Urine pH 5.0 (5.0-7.0) 04/21/22 Unknown Ur Specific [place] 1.020 (1.003-1.030) 04/21/22 Unknown Urine Protein 100 mg/dl mg/dL (Negative) 04/21/22 Unknown Urine Glucose (UA) 500 mg/dL (Negative) 04/21/22 Unknown Urine Ketones 160 mg/dL (Negative) 04/21/22 Unknown Urine Blood Trace (Negative) 04/21/22 Unknown Urine Nitrite Negative (Negative) 04/21/22 Unknown Ur Reducing Substances Not Reportable 04/21/22 Unknown Urine Bilirubin Negative (Negative) 04/21/22 Unknown Urine Ictotest Not Reportable 04/21/22 Unknown Urine Urobilinogen < 2.0 mg/dL (<2.0) 04/21/22 Unknown Ur Leukocyte Esterase Negative (Negative) 04/21/22 Unknown Urine WBC (Auto) 4.0 /HPF (0.0-6.0) 04/21/22 Unknown Urine RBC (Auto) 2.0 /HPF (0.0-6.0) 04/21/22 Unknown U Epithel Cells (Auto) 1.0 /HPF (0-13.0) 04/21/22 Unknown Urine Mucus Few /HPF 04/21/22 Unknown Salicylates < 0.3 mg/dL (2.8-20.0) L 04/21/22 13:21 Urine Opiates Screen Presumptive negative 04/21/22 13:38 Urine Methadone Screen Presumptive negative 04/21/22 13:38 Acetaminophen 5.0 ug/mL (10.0-30.0) L 04/21/22 13:21 Ur Barbiturates Screen Presumptive negative 04/21/22 13:38 Ur Phencyclidine Scrn Presumptive negative 04/21/22 13:38 Ur Amphetamines Screen Presumptive negative 04/21/22 13:38 U Benzodiazepines Scrn Presumptive negative 04/21/22 13:38 Urine Cocaine Screen Presumptive negative 04/21/22 13:38 U Marijuana (THC) Screen Presumptive negative 04/21/22 13:38 Drugs of Abuse Note Disclamer 04/21/22 13:38 Plasma/Serum Alcohol < 0.01 % (0-0.07) 04/21/22 13:21 Hepatitis A IgM Ab Non-reactive (NonReactive) 04/21/22 13:21 Hep Bs Antigen Non-reactive (Negative) 04/21/22 13:21 Hep B Core IgM Ab Non-reactive (NonReactive) 04/21/22 13:21 Hepatitis C Antibody Reactive (NonReactive) A 04/21/22 13:21 HIV 1&2 Antibody Rapid Non react (Non React) 04/22/22 13:21 HIV P24 Antigen Non react (Non React) 04/22/22 13:21 Stout/IV: Voiding Method Indwelling Catheter Nutrition/Malnutrition Assess - Dietary Evaluation Nutrition/Malnutrition Findings: Nutrition Notes Start: 04/22/22 09:41 Freq: Status: Discharge Protocol: Document 04/25/22 09:55 VIK (Rec: 04/25/22 10:17 VIK [id number]) Nutrition Notes Initial or Follow up Brief Note Current Diagnosis Diabetes,Respiratory Failure, Malnutrition,Stroke Other Pertinent Diagnosis DKA, s/p PEA w/ROSC x3, Metabolic Encephalopatrhy/ Acidosis, Hepatitis C, .. Current Diet TF-Vital AF 1.2 Shimon @ 20 ml/hr (from L 04/25). Height 5 ft 8 in Weight 63.503 kg [place] Body Weight (kg) 70.00 BMI 21.2 Weight change and time frame No body weight change reported in 3 days. Weight Status Appropriate Subjective/Other Information RD consult for routine F/U on TF tolerance/continuation. TF continues, but has been reduced to trickle feeding (20 ml/hr) by . Pt is on Mechanical Ventilation, O2 saturation @ 98%, according to Physical Assessment History notes. Pt is now on DNR status. Multiorgan failute,likely anoxic brain injury, renal failure worsening, according to Progress notes. Percent of energy/protein needs met: Prescribed TF-Vital AF 1.2 Shimon @ 20 ml/hr provides for energy/protein needs (575 Kcal /36 g) during LOS, 31% Kcal; 47% AA. #1 Nutrition Diagnosis Inadequate oral intake Diagnosis Progress(for reassessment Continues documentation) Is patient on ventilator? Yes Is Patient Ambulatory and/or Out of Bed No REE-(Marathon-St. Jeor-confined to bed) 1673.004 Kcal/Kg value to use for calculation 29 Approximate Energy Requirements Using 1842 kcal/Kg Calculation Used for Recommendations Kcal/kg Additional Notes Protein: 1.2-2 g/Kg ABW; 77- 128 g/day. Fluids: 1 ml/Kcal, or as per MD. Nutrition Intervention Nutrition Support: Trickle Feeding TF-Vital AF 1. 2 Shimon @ 20 ml/hr. Flush: 240 ml wayer Q 4 hr, or as per MD. Kcal 575 Protein (gm) 36 Carbohydrates (gm) 53 Fat (gm) 26 Fluid (mL) 389 Fiber (gm) 2 % RDI: 31% Kcal; 47% AA. Goal #1 Adjust the dietary intervention to better serve Pt's needs and clinical conditions during LOS. Follow-Up By: 05/02/22 Additional Comments Continue monitoring TF tolerance and BM.
[2022-04-22 16:35] LABS: BUN/Creatinine Ratio 52
[2022-04-22] MEDS ORDERED: NORepinephrine/NS 8 MG-250 ML 8 MG/250 ML INFUS..BTL IV ONE (16:48)
[2022-04-22] MEDS: NORepinephrine/NS 8 MG-250 ML 8 MG/250 ML INFUS..BTL IV SCH ×2 (17:15→20:40)
[2022-04-22] MEDS ORDERED: DOPamine 800 MG/D5W 250ML 800 MG/250 ML BAG IV ONE (17:20)
[2022-04-22] MEDS: DOPamine 800 MG/D5W 250ML 800 MG/250 ML BAG IV SCH (17:23)
[2022-04-22] MEDS ORDERED: SODIUM CHLORIDE 0.9% 500 ML 500 ML ONE (17:26)
[2022-04-22] MEDS ORDERED: HEPARIN 10,000 UNITS/10 ML VIAL IV PRN (17:30)
[2022-04-22] MEDS ORDERED: HEPARIN 10,000 UNITS/10 ML VIAL IV ONE (17:30)
[2022-04-22] MEDS ORDERED: SODIUM CHLORIDE 0.9% 1000 ML 1,000 ML IV ONE (17:30)
[2022-04-22] MEDS ORDERED: EPINEPHrine 1 MG/10 ML SYRINGE ONE (17:32)
[2022-04-22] MEDS ORDERED: CALCIUM CHLORIDE 1,000 MG/10 ML SYRINGE IV ONE (17:32)
--- NOTE | 2022-04-22 17:35 | XRay Report ---
CHEST 1 VIEW INDICATION / CLINICAL INFORMATION: Intubation, central line placement. COMPARISON: 04/21/2022 FINDINGS: SUPPORT DEVICES: Interval intubation. The tip of the ET tube is 10 cm from the kody. Additionally, right IJ central line has been placed with tip projecting in the SVC. HEART / MEDIASTINUM: Stable mild cardiomegaly. LUNGS / PLEURA: Mild interstitial pulmonary edema has developed. No pneumothorax. ADDITIONAL FINDINGS: No significant additional findings. IMPRESSION: 1. Satisfactory positioning of right IJ central venous line. No pneumothorax. 2. ET tube tip is 10 cm from kody. 3. Interval development of mild interstitial pulmonary edema. Signer Name: Naa Ramirez MD Signed: 04/22/2022 5:30 PM Workstation Name: [id number]
--- NOTE | 2022-04-22 17:36 | Event Note ---
<NISSA ROME - Last Filed: 04/22/22 17:52> Date: 04/22/22 1633: Patient noted to be in PEA, ACLS initiated, pt intubated and received CVL. See Code sheet for details. Dr. Neumann and Dr. English aware. Dr. Short at bedside. ROSC achieved. 1708: PEA arrest again. ACLS initiated. ROSC achieved. Dopamine gtt, levo maxed. See code sheet for details. ROSC achieved. 1732: Tracie was being placed. PEA arrest again. Shocked at 200 J for Vfib, Started on heparin gtt. ROSC achieved. Dr. Short at bedside. Dr. Neumann and Dr. English aware. I tried to call the two contact numbers on the chart for Mr. Akshat campbell ( call went to automated chucking lathe operator and [facility] for hospital went unanswered) and Mrs. Sidhu (called but she was driving and was not able to identify the patient but she did state she a contact for a longterm). She stated she will call back within 5 min. Added vasopressin gtt RN updating someone on phone. <FRANSISCA NEUMANN - Last Filed: 04/30/22 11:26> I saw and evaluated the patient. I agree with the findings and the plan of care as documented in the Nurse Practitioner's~note, with the following corrections and additions.
[2022-04-22] MEDS ORDERED: HEPARIN/ 0.45% NACL DRIP 25,000 UNIT/500 ML BAG IV SCH (18:00)
[2022-04-22] MEDS: ASPIRIN 300 MG RECT SUPP PR SCH (18:08)
[2022-04-22 18:36] LABS: ABG Base Excess -16.9 mmol/L (-2.0-3.0); ABG HCO3 14.8 mmol/L (20.0-26.0); ABG Methemoglobin 0.5 % (0.0-1.5); ABG Oxygen Saturation 92.3 % (95.0-99.0); ABG PCO2 65.6 mm Hg; ABG PO2 101.3 mm Hg (80.0-90.0)
[2022-04-22 18:38] LABS: ABG PH 6.971 pH Units (7.350-7.450)
[2022-04-22] MEDS: D5W/0.45% NACL 1,000 ML IV SCH (18:49)
--- NOTE | 2022-04-22 19:11 | Event Note ---
Date: 04/22/22 A CODE SABAS was called. I presented to the patient's bedside. The patient was found to be in asystolic arrest. The patient was treated" with ACLS protocol with eventual return of perfusing cardiac rhythm. While conducting bedside patient care the patient again developed asystolic arrest at 1732 hrs. The patient was again treated in accordance with ACLS protocol with eventual return of perfusing cardiac rhythm. The high probability of a clinically significant, sudden or life threatening deterioration of the [] system(s) required my full and direct attention, intervention and personal management. The aggregate critical care time was [60] minutes. This time is in addition to time spent performing reported procedures but includes the following: [x] Data Review and interpretation [x] Patient assessment and monitoring of vital signs [x] Documentation [x] Medication orders and management
--- NOTE | 2022-04-22 19:11 | Procedure Note ---
Date of procedure: 04/22/22 Pre-op diagnosis: Acute hypoxemic respiratory failure, cardiac arrest Post-op diagnosis: same Procedure: Right internal jugular vein triple-lumen catheter under ultrasound guidance Informed consent was obtained. The patient was prepped and draped in usual sterile fashion. A timeout was taken with the patient's nurse at bedside to verify the correct patient, the correct procedure, and the correct operative site. Local anesthesia was obtained with 1% lidocaine. The Seldinger technique was utilized under ultrasound guidance to localize the right internal jugular vein. A seeker needle was then inserted into the right internal jugular vein under ultrasound guidance without difficulty. A guidewire was then advanced via the seeker needle into the right internal jugular vein. The seeker needle was subsequently removed. A scalpel was used to incise the skin at the insertion site. A dilator was then passed over the guidewire into the right internal jugular vein and subsequently removed. A preflush triple-lumen catheter was then inserted into the right internal jugular vein without difficulty. All 3 ports flush and drawl with ease. 3-0 silk suture was utilized to suture the triple-lumen catheter in place. A Biopatch was placed at the insertion site. A sterile dressing was applied over the triple-lumen catheter. Estimated blood loss minimal. Complications none. A postoperative chest x-ray reveals a right internal jugular vein triple-lumen catheter in expected position. Anesthesia: local Surgeon: MEME ORTIZ Estimated blood loss: minimal Condition: critical Disposition: ICU
--- NOTE | 2022-04-22 19:11 | Procedure Note ---
Date of procedure: 04/22/22 Pre-op diagnosis: Acute hypoxemic respiratory failure, cardiac arrest Post-op diagnosis: same Procedure: Endotracheal intubation The glide scope was utilized to place a size 8 ET tube without difficulty. Anesthesia: none Surgeon: MEME ORTIZ Estimated blood loss: none Pathology: none Condition: critical Disposition: ICU
--- NOTE | 2022-04-22 19:11 | Event Note ---
Date: 04/22/22 A CODE SABAS was called. I presented to bedside. The patient was found in asystolic arrest. The patient was treated" with ACLS protocol with eventual return of perfusing cardiac rhythm. 3 30 minutes critical care time dedicated to patient care. The high probability of a clinically significant, sudden or life threatening deterioration of the [cardiac, pulmonary, renal, endocrine] system(s) required my full and direct attention, intervention and personal management. The aggregate critical care time was [30] minutes. This time is in addition to time spent performing reported procedures but includes the following: [x] Data Review and interpretation [x] Patient assessment and monitoring of vital signs [x] Documentation [x] Medication orders and management
--- NOTE | 2022-04-22 19:11 | Procedure Note ---
Date of procedure: 04/22/22 Pre-op diagnosis: Acute hypoxemic respiratory failure, cardiac arrest Post-op diagnosis: same Procedure: Right femoral artery arterial line placement under ultrasound guidance After informed consent was obtained the patient was prepped and draped in the [facility] sterile fashion. A timeout was taken with the patient's nurse at bedside to verify the correct patient, the correct procedure, and the correct operative site. Ultrasound was utilized to localize the right femoral artery without difficulty. A seeker needle was utilized to access the right femoral artery under ultrasound guidance. A guidewire was then advanced into the right femoral artery. A scalpel was used to incise skin at the insertion site. A right femoral artery catheter was then advanced over the guidewire into the right femoral artery and the guidewire subsequently removed. A positive waveform was present on the monitor. Estimated blood loss minimal. Complications none. 3-0 silk suture was utilized to suture the arterial catheter in place. Anesthesia: local Surgeon: MEME ORTIZ Estimated blood loss: minimal Condition: critical Disposition: ICU
[2022-04-22 19:12] LABS: Band Neutrophils # (Manual) 0.3 K/mm3; Basophils % (Manual) 0 % (0.0-1.8); Platelet Estimate Consistent w Auto; RBC Morphology Normal; Total Cells Counted 100
[2022-04-22] MEDS ORDERED: LIP THERAPY VASELINE TP PRN (20:12)
[2022-04-22] MEDS ORDERED: MINERAL OIL/PETROLATUM, WHITE OPHTH OINT 3.5 GM OU PRN (20:12)
[2022-04-22] MEDS ORDERED: SODIUM CHLORIDE 0.9% 500 ML IVPB IV PRN (20:12)
[2022-04-22] MEDS: VASOPRESSIN 20 UNIT in SODIUM CHLORIDE 0.9% 100 ML IV SCH (20:14)
[2022-04-22 20:29] LABS: Hematocrit 35.1 % (35.5-45.6); Mean Corpuscular HGB Conc 31 % (32-34); Mean Corpuscular Volume 100 fl (84-94); Platelet Count 103 K/mm3 (140-440); Red Blood Count 3.51 M/mm3 (3.65-5.03); Red Cell Distribution Width 19.3 % (13.2-15.2)
[2022-04-22 20:41] LABS: INR 3.29 (0.87-1.13)
[2022-04-22 20:48] LABS: Partial Thromboplastin Time 236.4 Sec. (24.2-36.6)
[2022-04-22] MEDS: FAMOTIDINE 20 MG/2 ML INJ IV SCH (21:12)
[2022-04-22] MEDS: SENNOSIDES/DOCUSATE SODIUM 8.6/50 MG TAB FEEDTUBE SCH (21:12)
[2022-04-22 22:29] LABS: Albumin 2.6 g/dL (3.9-5); BUN/Creatinine Ratio 29; Blood Urea Nitrogen 26 mg/dL (9-20); Calcium 8.2 mg/dL (8.4-10.2); Hemolysis Index 12
[2022-04-22 22:40] LABS: Alanine Aminotransferase 2861 units/L (7-56)
[2022-04-23] MEDS: DOPamine 800 MG/D5W 250ML 800 MG/250 ML BAG IV SCH (02:34)
[2022-04-23] MEDS: D5W/0.45% NACL 1,000 ML IV SCH ×2 (02:34→09:45)
[2022-04-23 03:51] LABS: ABG Base Excess -14.3 mmol/L (-2.0-3.0); ABG HCO3 13.8 mmol/L (20.0-26.0); ABG Methemoglobin 0.5 % (0.0-1.5); ABG PCO2 41.2 mm Hg; ABG PO2 68.9 mm Hg (80.0-90.0)
[2022-04-23 03:53] LABS: ABG PH 7.143 pH Units (7.350-7.450)
[2022-04-23 04:35] LABS: Calcium 7.6 mg/dL (8.4-10.2)
[2022-04-23] MEDS ORDERED: SODIUM BICARB 8.4% 50 MEQ/50 ML SYRINGE IV ONE (05:15)
[2022-04-23] MEDS: NORepinephrine/NS 8 MG-250 ML 8 MG/250 ML INFUS..BTL IV SCH ×3 (05:51→21:25)
[2022-04-23] MEDS: VASOPRESSIN 20 UNIT in SODIUM CHLORIDE 0.9% 100 ML IV SCH ×2 (06:09→15:01)
[2022-04-23] MEDS ORDERED: DEXTROSE 50% IN WATER (25GM) 50 ML SYRINGE IV PRN (09:12)
[2022-04-23] MEDS: cefTRIAXone/NS 2 GM/100 ML 2 GM/100 ML BAG IV SCH (09:45)
[2022-04-23] MEDS ORDERED: SODIUM BICARBONATE 150 MEQ in WATER FOR INJECTION (PF) 1,000 ML IV SCH (10:00)
[2022-04-23] MEDS ORDERED: SODIUM POLYSTYRENE 15 GM/60 ML ORAL LIQD PO SCH (10:00)
--- NOTE | 2022-04-23 10:10 | Ultrasound Report ---
ULTRASOUND ABDOMEN, COMPLETE INDICATION / CLINICAL INFORMATION: transaminitis with positive hep C status. COMPARISON: None available. FINDINGS: PANCREAS: No significant abnormality. ABDOMINAL AORTA: No significant abnormality. IVC: No significant abnormality. LIVER: No significant abnormality. GALLBLADDER: No significant abnormality. BILE DUCTS: No significant abnormality. Common bile duct measures 2 mm. KIDNEYS: Right: There is a simple appearing cyst within the right kidney. Left: There is a benign-ap pearing cyst within the left kidney. SPLEEN: Heterogeneous echotexture. FREE FLUID: None. ADDITIONAL FINDINGS: None. IMPRESSION: 1. Heterogeneous echotexture of the spleen which may be artifactual versus secondary to diffuse splen ic disease. 2. Bilateral renal cysts. Signer Name: Khoi Bingham DO Signed: 04/23/2022 10:06 AM Workstation Name: [email or web address]
--- NOTE | 2022-04-23 10:10 | XRay Report ---
CHEST 1 VIEW INDICATION / CLINICAL INFORMATION: follow up respiratory failure. COMPARISON: 04/22/2022 FINDINGS: SUPPORT DEVICES: Stable, satisfactory device positioning. HEART / MEDIASTINUM: Stable. LUNGS / PLEURA: Underlying COPD with increased interstitial markings and new right apical pleural eff usion. No pneumothorax. ADDITIONAL FINDINGS: No significant additional findings. IMPRESSION: 1. Worsening CHF superimposed on underlying COPD Signer Name: Khurram Ruiz MD Signed: 04/23/2022 10:05 AM Workstation Name: [id number]
[2022-04-23 11:29] LABS: Calcium 7.3 mg/dL (8.4-10.2)
[2022-04-23 11:30] LABS: Creatine Kinase MB 106.7 ng/mL (0.0-4.0)
[2022-04-23] MEDS ORDERED: INSULIN REGULAR, HUMAN 100 UNITS/1 ML IV SCH (12:00)
[2022-04-23] MEDS ORDERED: CALC GLUCONATE 1GM/NS 100 ML 1 GM/100 ML BAG IV SCH (12:00)
[2022-04-23] MEDS ORDERED: SODIUM BICARB 8.4% 50 MEQ/50 ML SYRINGE IV SCH (12:00)
[2022-04-23] MEDS: DEXTROSE 50% IN WATER (25GM) 50 ML SYRINGE IV SCH ×2 (12:34→13:18)
--- NOTE | 2022-04-23 13:06 | Progress Note ---
Assessment and Plan Patient appears to be too sick with multiorgan failure on multiple pressors. Prognosis is guarded. We will have his device interrogated to see if cardiac arrest was an initiating event or document any other ventricular fibrillation events. Patient's elevated troponin are secondary to cardiac arrest. Echocardiogram shows severe LV systolic dysfunction patient also has known nonischemic cardiomyopathy. Patient is not making good urine output, consider giving a dose of Lasix. Device was interrogated which showed patient had 6 episodes of ventricular fibrillation starting at 5:09 PM yesterday. Per her EP doctor who put in a device patient has a history of known congestive heart failure with a EF of 15% history of ventricular tachycardia paroxysmal atrial fibrillation COPD BPH and nonischemic cardiomyopathy. - Patient Problems (1) Systolic and diastolic CHF, chronic Current Visit: Yes Status: Acute (2) Cardiac arrest due to underlying cardiac condition Current Visit: Yes Status: Acute (3) Elevated troponin level not due to acute coronary syndrome Current Visit: Yes Status: Acute Subjective Interval history: Overnight events noted. Patient had cardiac arrest with questionable ICD device shock. patient is intubated and sedated Objective Vital Signs Temp Pulse Pulse Resp BP Pulse Ox 04/23/22 12:30 85 96/64 91 04/23/22 11:45 98.8 F 04/23/22 11:16 87 24 111/54 89 04/23/22 11:00 86 24 111/54 04/23/22 10:46 87 24 63/24 93 04/23/22 10:30 88 25 H 63/24 04/23/22 10:16 88 26 H 63/24 93 04/23/22 10:00 90 14 63/24 92 04/23/22 09:46 85 24 53/18 91 04/23/22 09:30 87 24 66/46 04/23/22 09:16 87 14 66/46 04/23/22 09:00 88 22 66/46 94 04/23/22 08:46 89 24 88/45 04/23/22 08:30 89 20 125/77 04/23/22 08:16 91 H 24 125/77 92 04/23/22 08:00 98.2 F 91 H 21 125/77 95 04/23/22 07:46 91 H 21 77/56 95 04/23/22 07:30 101 H 24 77/56 04/23/22 07:27 98.2 F 08/15/22 07:16 91 H 22 77/56 98 04/23/22 07:00 89 20 66/42 98 04/23/22 06:46 105 H 21 66/42 96 04/23/22 06:30 100 H 17 117/62 04/23/22 06:16 108 H 26 H 117/62 92 04/23/22 06:00 106 H 24 96/49 04/23/22 05:46 120 H 25 H 96/49 98 04/23/22 05:30 116 H 25 H 100/76 04/23/22 05:16 118 H 24 100/76 94 04/23/22 05:00 129 H 23 99/77 94 04/23/22 04:46 126 H 23 104/77 04/23/22 04:44 111 H 88/55 93 04/23/22 04:30 109 H 25 H 104/77 98 04/23/22 04:16 114 H 20 104/77 94 04/23/22 04:00 112 H 24 45/27 75 L 04/23/22 03:46 102 H 24 45/27 89 04/23/22 03:44 98.2 F 04/23/22 03:30 105 H 22 45/27 94 04/23/22 03:16 116 H 21 52/17 92 04/23/22 03:00 113 H 23 89/60 04/23/22 02:46 112 H 21 89/60 89 04/23/22 02:30 121 H 21 85/57 90 04/23/22 02:16 115 H 24 85/57 89 04/23/22 02:00 131 H 21 89/59 68 L 04/23/22 01:46 127 H 24 89/59 87 04/23/22 01:30 135 H 22 89/59 90 04/23/22 01:16 113 H 24 88/62 87 04/23/22 01:00 107 H 21 91/56 89 04/23/22 00:46 123 H 18 91/56 90 04/23/22 00:30 124 H 19 72/48 04/23/22 00:16 122 H 19 72/48 89 04/23/22 00:01 119 H 122/53 93 04/23/22 00:00 118 H 17 72/48 90 04/22/22 23:50 98.8 F 04/22/22 23:46 110 H 15 72/48 86 04/22/22 23:30 110 H 15 72/48 04/22/22 23:16 124 H 15 04/22/22 23:00 124 H 14 83/63 04/22/22 22:59 123 H 13 83/63 96 04/22/22 22:45 114 H 13 99/71 04/22/22 22:33 147 H 14 88/61 04/22/22 22:30 115 H 12 94/68 04/22/22 22:23 114 H 13 124/49 04/22/22 22:21 97.3 F L 04/22/22 22:15 124 H 11 L 110/59 04/22/22 22:00 124 H 12 104/63 04/22/22 21:46 136 H 12 123/63 04/22/22 21:30 121 H 15 121/67 04/22/22 21:15 109 H 10 L 120/66 04/22/22 21:00 127 H 16 112/76 04/22/22 20:45 109 H 17 138/121 04/22/22 20:30 105 H 21 111/70 04/22/22 20:16 105 H 17 108/38 04/22/22 20:00 94 F L 119 H 24 111/70 75 L 04/22/22 19:55 118 H 118/64 92 04/22/22 19:46 94.3 F L 97 H 18 94/68 04/22/22 19:30 106 H 14 94/55 04/22/22 19:15 111 H 23 109/61 04/22/22 19:00 110 H 7 L 119/72 100 04/22/22 18:00 79 20 113/60 79 L 04/22/22 17:00 70 16 89/51 61 L 04/22/22 16:40 70 100 04/22/22 16:00 98 F 91 H 90 52 H 92/58 89 04/22/22 15:00 100 H 44 H 93/61 91 04/22/22 14:00 98 H 42 H 95/71 87 - Physical Examination HEENT: Positive: PERRL, Normocephaly Neck: Positive: trachea midline. Negative: JVD/HJR Cardiac: Positive: Reg Rate and Rhythm, S1/S2. Negative: Audible Murmur Lungs: Positive: clear to auscultation (Anterior) Neuro: Positive: Other (Intubated and sedated) Abdomen: Positive: Soft Skin: Negative: Rash Extremities: Absent: edema - Labs and Meds Cardiac Enzymes 04/22/22 04/22/22 04/23/22 Range/Units 15:29 21:45 00:00 AST 8499 H (5-40) units/L CK-MB (CK-2) 30.3 H 90.0 H (0.0-4.0) ng/mL 04/23/22 Range/Units 10:46 AST (5-40) units/L CK-MB (CK-2) 106.7 H (0.0-4.0) ng/mL Coagulation 04/22/22 Range/Units 19:58 PT 38.0 H (12.2-14.9) Sec. INR 3.29 H (0.87-1.13) APTT 236.4 H* (24.2-36.6) Sec. CBC 04/22/22 04/22/22 Range/Units 11:22 19:58 WBC 5.1 6.2 (4.5-11.0) K/mm3 RBC 3.53 L 3.51 L (3.65-5.03) M/mm3 Hgb 11.2 L 11.0 L (11.8-15.2) gm/dl Hct 35.0 L 35.1 L (35.5-45.6) % Plt Count 97 L 103 L (140-440) K/mm3 Comprehensive Metabolic Panel 04/22/22 04/22/22 04/22/22 Range/Units 15:29 19:58 21:45 Sodium 147 H 152 H (137-145) mmol/L Potassium 5.6 H D 5.3 H 5.6 H (3.6-5.0) mmol/L Chloride 117.1 H 116.7 H (98-107) mmol/L Carbon Dioxide 11 L 18 L D (22-30) mmol/L BUN 26 H 26 H (9-20) mg/dL Creatinine 0.5 L 0.9 D (0.8-1.3) mg/dL Glucose 109 H 143 H (75-100) mg/dL Calcium 8.2 L 8.2 L (8.4-10.2) mg/dL AST 8499 H (5-40) units/L ALT 2861 H (7-56) units/L Alkaline Phosphatase 144 H (35-129) units/L Total Protein 4.3 L D (6.3-8.2) g/dL Albumin 2.6 L (3.9-5) g/dL 04/23/22 04/23/22 Range/Units 04:00 10:46 Sodium 150 H 154 H (137-145) mmol/L Potassium 5.9 H 6.6 H* (3.6-5.0) mmol/L Chloride 116.7 H 119.2 H (98-107) mmol/L Carbon Dioxide 14 L 14 L (22-30) mmol/L BUN 29 H 30 H (9-20) mg/dL Creatinine 1.3 1.6 H (0.8-1.3) mg/dL Glucose 117 H 110 H (75-100) mg/dL Calcium 7.6 L 7.3 L (8.4-10.2) mg/dL AST (5-40) units/L ALT (7-56) units/L Alkaline Phosphatase (35-129) units/L Total Protein (6.3-8.2) g/dL Albumin (3.9-5) g/dL
[2022-04-23 13:21] LABS: Hematocrit 31.3 % (35.5-45.6); Hemoglobin 9.7 gm/dl (11.8-15.2); Mean Corpuscular HGB Conc 31 % (32-34); Mean Corpuscular Volume 100 fl (84-94); Red Blood Count 3.11 M/mm3 (3.65-5.03)
--- NOTE | 2022-04-23 13:22 | Progress Note ---
<TAYLOR GREEN - Last Filed: 04/24/22 22:16> Assessment and Plan Assessment and plan: This is a 66-year-old female with DM, cardiomegaly, Vtach, paroxysmal Afib, NICM s/p bivalve ICD, COPD, Hep C and noncompliance admitted with DKA. S/p X3 cardiac arrest with ROSC, now unresponsive on the vent and on multiple pressors Hospital course to date: 04/22: [facility] ordered abdominal ultrasound, bladder scan completed which showed 100 cc of urine so we will continue condom cath. [facility] would like to also check for HIV. Patient given LR bolus and bicarb. On exam patient is cold and mottled to bilateral lower extremities. Stat echocardiogram ordered. Patient also started on CIWA protocol. We will continue broad-spectrum antibiotics for now. 04/23: s/p X3 cardiac arrest with ROSC. Now unresponsive on the vent, not on any sedation with no pupillary response and no gag/cough reflexes, probable anoxic brain Injury. CT scan pending, patient too unstable for transfer. EEG pending and Neurology is consulted. Patient is on 3 pressors and Bcarb gtt, BP remains labile. Troponin continue to trend up, probably due to cardiac events, however can't r/o ischemic event. 2D Echo pending and Cardiology consulted. Will also broaden empiric IV abx for now, urine culture with GPC, blood cultures pending. Due to severe lactic acidosis c/f for ischeemic gut, patient too unstable for transport at this time. Renal function is also worsening with electrolytes imbalance, hyperkalemia treated per protocol, continue to trend BMP. Consider Nephrology consult if worsen. Case management is following for assistance with locating NOK. Very poor prognosis. 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 Now unresponsive on the vent. Pupils are irregular and nonrective, no gag/cough -Too unstable for transport for repeat CT -EEG and Neurology consult pending -No sedative agents at this time -As needed analgesia for vent asynchrony Cardiac: S/p X3 Cardiac Arrest with ROSC, Cardiogenic Shock, Elevated troponin, h/o Cardiomypathy s/p AICD -S/p X3 Cardiac arrest with ROSC- see event notes - Now on multiple pressors and bcarb gtt -Cardiology consulted, appreciate recommendations -2D Echo pending -Blood pressure monitoring per protocol -Titrate pressors for MAP above 65 -Aspirin, lipitor- held due to shock liver -Trend troponin Respiratory: Acute hypoxic respiratory failure -Intubated during code on 04/22 - Vent setting: PRVC-100%,6,24,475 - AM ABG noted, vent adjusted per CCM - CCM consulted, appreciate recommendations - VAP bundle addressed - Aspiration precaution HOB above 30 - Daily ABG and CXR - Continue SPO2 monitoring for SPO2 goal above 92% GI: Shock Liver, transaminitis, Moderate protein calorie malnutrition, Hep C, -Worsen LFTs,most likely shock liver -Continue to trnd LFTs -Patient is cachectic appearing -TF held due to high pressor requirements -Abdominal ultrasound pending : Acute Kidney Injury(CARLOS) most likely ATN, Hyperkalemoa -2/2 hypoperfusion due to code -Renal function is also worsening with electrolytes imbalance and anuria -hyperkalemia treated per protocol, continue to trend BMP. -Strict intake and output -Avoid nephrotoxic medications; Renally dose medications -Stout in place -Continue IVF for now -Monitor and replace electrolytes as needed -Consider Nephrology consult if worsen ID: [id number], Severe Lactic Acidosis, C/F ischemic Gut -Presented with tachycardia, Lactic acidosis -urine culture with GPC, blood cultures pending. -Due to severe lactic acidosis c/f for ischemic gut, Will also broaden empiric IV abx for now -patient too unstable for transport at this time. -HIV negative -f/u blood culture -Monitor WBC and temperature curve -Consider ID consult if worsen Endo: s/p DKA, h/o DM -Presented with VBG 7.2, hypernatremia, anion gap 31, BG 402 -s/p DKA protocol -Transition to Accu-Cheks and SSI Q6hrs -TF on hold due to high pressor requirements -Avoid hypoglycemia Heme: Thrombocytopenia -Worsen plt this am -Heparin gtt D/Prudencio -H&H stable, no s/s of any active bleeding -Trend CBC -Transfuse hemoglobin less than 7 -SCDs to BLE while in bed GI/DVT Prophylaxis -PPI- Pepcid -SCDs to BLE while in bed The high probability of a clinically significant, sudden or life threatening deterioration of the [multi] system(s) required my full and direct attention, intervention and personal management. The aggregate critical care time was [60] minutes. This time is in addition to time spent performing reported procedures but includes the following: [x] Data Review and interpretation [x] Patient assessment and monitoring of vital signs [x] Documentation [x] Medication orders and management Disposition Plan: ICU Total Time Spent with Patient (Minutes): 60 History Interval history: Patient seen and examined at the bedside. Intubated and unresponsive, not on any sedation. Pupils are irregular and nonreactive, with no gag/cough. All extremities are cool to touch and mottled. On 3 pressors and a Bcarb gtt, BP remains labile, Paced on the monitor Hospitalist Physical - Constitutional Vitals: Temp Pulse Resp BP Pulse Ox 98.8 F 85 24 96/64 91 04/23/22 11:45 04/23/22 12:30 04/23/22 11:16 04/23/22 12:30 04/23/22 12:30 General appearance: Present: no acute distress, cachectic, other (Intubated and unresponsive. Not on any sedations) - EENT Eyes: Present: irregular pupil (nonreactive), mydriasis - Respiratory Respiratory effort: normal Respiratory: bilateral: rhonchi - Cardiovascular Rhythm: regular Heart Sounds: Present: S1 & S2 - Extremities Extremities: abnormal (All extremities are mottles) Extremity abnormal: cold, pulses diminished Peripheral Pulses: abnormal (Diminished) - Abdominal General gastrointestinal: soft, non-distended, hypoactive bowel sounds - Integumentary Integumentary: Present: pale (Mottle skin) - Psychiatric Psychiatric: other (Intubated and unresponsive. Not on any sedations) - Neurologic Neurologic: focal deficits (Pupils are irregular and nonreactive, no gag/cough), other (Intubated and unresponsive. Not on any sedations) - Allied Health Allied health notes reviewed: nursing, case management HEART Score - HEART Score Troponin: Troponin T 2.840 ng/mL (0.00-0.029) H* D 04/23/22 10:46 Results - Labs CBC & Chem 7: 04/24/22 06:00 04/24/22 06:00 Labs: Laboratory Last Values WBC 6.2 K/mm3 (4.5-11.0) 04/22/22 19:58 RBC 3.51 M/mm3 (3.65-5.03) L 04/22/22 19:58 Hgb 11.0 gm/dl (11.8-15.2) L 04/22/22 19:58 Hct 35.1 % (35.5-45.6) L 04/22/22 19:58 MCV 100 fl (84-94) H 04/22/22 19:58 MCH 31 pg (28-32) 04/22/22 19:58 MCHC 31 % (32-34) L 04/22/22 19:58 RDW 19.3 % (13.2-15.2) H 04/22/22 19:58 Plt Count 103 K/mm3 (140-440) L 04/22/22 19:58 Lymph % (Auto) 5.7 % (13.4-35.0) L 04/21/22 13:21 Edgar % (Auto) 7.9 % (0.0-7.3) H 04/21/22 13:21 Eos % (Auto) 0.0 % (0.0-4.3) 04/21/22 13:21 Baso % (Auto) 0.1 % (0.0-1.8) 04/21/22 13:21 Lymph # (Auto) 0.4 K/mm3 (1.2-5.4) L 04/21/22 13:21 Edgar # (Auto) 0.5 K/mm3 (0.0-0.8) 04/21/22 13:21 Eos # (Auto) 0.0 K/mm3 (0.0-0.4) 04/21/22 13:21 Baso # (Auto) 0.0 K/mm3 (0.0-0.1) 04/21/22 13:21 Add Manual Diff Complete 04/22/22 11:22 Total Counted 100 04/22/22 11:22 Seg Neutrophils % 86.3 % (40.0-70.0) H 04/21/22 13:21 Seg Neuts % (Manual) 82.0 % (40.0-70.0) H 04/22/22 11:22 Band Neutrophils % 6.0 % 04/22/22 11:22 Lymphocytes % (Manual) 6.0 % (13.4-35.0) L 04/22/22 11:22 Reactive Lymphs % (Man) 0 % 04/22/22 11:22 Monocytes % (Manual) 4.0 % (0.0-7.3) 04/22/22 11:22 Eosinophils % (Manual) 1.0 % (0.0-4.3) 04/22/22 11:22 Basophils % (Manual) 0 % (0.0-1.8) 04/22/22 11:22 Metamyelocytes % 1.0 % 04/22/22 11:22 Myelocytes % 0 % 04/22/22 11:22 Promyelocytes % 0 % 04/22/22 11: Blast Cells % 0 % 04/22/22 11:22 Nucleated RBC % Not Reportable 04/22/22 11:22 Seg Neutrophils # 6.0 K/mm3 (1.8-7.7) 04/21/22 13:21 Seg Neutrophils # Man 4.2 K/mm3 (1.8-7.7) 04/22/22 11:22 Band Neutrophils # 0.3 K/mm3 04/22/22 11:22 Lymphocytes # (Manual) 0.3 K/mm3 (1.2-5.4) L 04/22/22 11:22 Abs React Lymphs (Man) 0.0 K/mm3 04/22/22 11:22 Monocytes # (Manual) 0.2 K/mm3 (0.0-0.8) 04/22/22 11:22 Eosinophils # (Manual) 0.1 K/mm3 (0.0-0.4) 04/22/22 11:22 Basophils # (Manual) 0.0 K/mm3 (0.0-0.1) 04/22/22 11:22 Metamyelocytes # 0.1 K/mm3 04/22/22 11:22 Myelocytes # 0.0 K/mm3 04/22/22 11:22 Promyelocytes # 0.0 K/mm3 04/22/22 11:22 Blast Cells # 0.0 K/mm3 04/22/22 11:22 WBC Morphology Not Reportable 04/22/22 11:22 Hypersegmented Neuts Not Reportable 04/22/22 11:22 Hyposegmented Neuts Not Reportable 04/22/22 11:22 Hypogranular Neuts Not Reportable 04/22/22 11:22 Smudge Cells Not Reportable 04/22/22 11:22 Toxic Granulation Not Reportable 04/22/22 11:22 Toxic Vacuolation Not Reportable 04/22/22 11:22 Dohle Bodies Not Reportable 04/22/22 11:22 Pelger-Huet Anomaly Not Reportable 04/22/22 11:22 Benoit Rods Not Reportable 04/22/22 11:22 Platelet Estimate Consistent w auto 04/22/22 11:22 Clumped Platelets Not Reportable 04/22/22 11:22 Plt Clumps, EDTA Not Reportable 04/22/22 11:22 Large Platelets Not Reportable 04/22/22 11:22 Giant Platelets Not Reportable 04/22/22 11:22 Platelet Satelliting Not Reportable 04/22/22 11:22 Plt Morphology Comment Not Reportable 04/22/22 11:22 RBC Morphology Normal 04/22/22 11:22 Dimorphic RBCs Not Reportable 04/22/22 11:22 Polychromasia Not Reportable 04/22/22 11:22 Hypochromasia Not Reportable 04/22/22 11:22 Poikilocytosis Not Reportable 04/22/22 11:22 Anisocytosis Not Reportable 04/22/22 11:22 Microcytosis Not Reportable 04/22/22 11:22 Macrocytosis Not Reportable 04/22/22 11:22 Spherocytes Not Reportable 04/22/22 11:22 Pappenheimer Bodies Not Reportable 04/22/22 11:22 Sickle Cells Not Reportable 04/22/22 11:22 Target Cells Not Reportable 04/22/22 11:22 Tear Drop Cells Not Reportable 04/22/22 11:22 Ovalocytes Not Reportable 04/22/22 11:22 Helmet Cells Not Reportable 04/22/22 11:22 [place] Bodies Not Reportable 04/22/22 11:22 [place] Rings Not Reportable 04/22/22 11:22 [place] Cells Not Reportable 04/22/22 11:22 Bite Cells Not Reportable 04/22/22 11:22 Crenated Cell Not Reportable 04/22/22 11:22 Elliptocytes Not Reportable 04/22/22 11:22 Acanthocytes (Spur) Not Reportable 04/22/22 11:22 Rouleaux Not Reportable 04/22/22 11:22 Hemoglobin C Crystals Not Reportable 04/22/22 11:22 Schistocytes Not Reportable 04/22/22 11:22 Malaria parasites Not Reportable 04/22/22 11:22 James Bodies Not Reportable 04/22/22 11:22 Hem Pathologist Commnt No 04/22/22 11:22 PT 38.0 Sec. (12.2-14.9) H 04/22/22 19:58 INR 3.29 (0.87-1.13) H 04/22/22 19:58 APTT 236.4 Sec. (24.2-36.6) H* 04/22/22 19:58 Heparin Anti-Xa Level 0.17 U.I./ml (0.3-0.7) L 04/23/22 04:30 ABG pH 7.143 pH Units (7.350-7.450) L* 04/23/22 03:38 ABG pCO2 41.2 mm Hg 04/23/22 03:38 ABG pO2 68.9 mm Hg (80.0-90.0) L 04/23/22 03:38 ABG HCO3 13.8 mmol/L (20.0-26.0) L 04/23/22 03:38 ABG O2 Saturation 88.0 % (95.0-99.0) L 04/23/22 03:38 ABG O2 Content 11.8 (0.0-44) 04/23/22 03:38 ABG Base Excess -14.3 mmol/L (-2.0-3.0) L 04/23/22 03:38 ABG Hemoglobin 9.6 gm/dl (14.0-18.0) L 04/23/22 03:38 ABG Carboxyhemoglobin 1.4 % (0.0-5.0) 04/23/22 03:38 ABG Methemoglobin 0.5 % (0.0-1.5) 04/23/22 03:38 VBG pH 7.265 (7.320-7.420) L 04/21/22 13:21 Oxyhemoglobin 86.4 % (95.0-99.0) L 04/23/22 03:38 FiO2 100 % 04/23/22 03:38 Sodium 154 mmol/L (137-145) H 04/23/22 10:46 Potassium 6.6 mmol/L (3.6-5.0) H* 04/23/22 10:46 Chloride 119.2 mmol/L (98-107) H 04/23/22 10:46 Carbon Dioxide 14 mmol/L (22-30) L 04/23/22 10:46 Anion Gap 27 mmol/L 04/23/22 10:46 BUN 30 mg/dL (9-20) H 04/23/22 10:46 Creatinine 1.6 mg/dL (0.8-1.3) H 04/23/22 10:46 Estimated GFR 43 ml/min 04/23/22 10:46 BUN/Creatinine Ratio 19 % 04/23/22 10:46 Glucose 110 mg/dL (75-100) H 04/23/22 10:46 POC Glucose 145 mg/dL (70-105) H 04/23/22 12:59 Lactic Acid 9.60 mmol/L (0.7-2.0) H* 04/23/22 10:46 Calcium 7.3 mg/dL (8.4-10.2) L 04/23/22 10:46 Phosphorus 8.60 mg/dL (2.5-4.5) H 04/23/22 04:00 Magnesium 2.20 mg/dL (1.7-2.3) 04/23/22 04:00 Total Bilirubin 1.50 mg/dL (0.1-1.2) H 04/22/22 21:45 AST 8499 units/L (5-40) H 04/22/22 21:45 ALT 2861 units/L (7-56) H 04/22/22 21:45 Alkaline Phosphatase 144 units/L (35-129) H 04/22/22 21:45 Ammonia 17.0 umol/L (25-60) L 04/21/22 13:21 Total Creatine Kinase 1942 units/L (55-170) H 04/23/22 10:46 CK-MB (CK-2) 106.7 ng/mL (0.0-4.0) H 04/23/22 10:46 CK-MB (CK-2) Rel Index 5.4 (0-4) H 04/23/22 10:46 Troponin T 2.840 ng/mL (0.00-0.029) H* D 04/23/22 10:46 Total Protein 4.3 g/dL (6.3-8.2) L D 04/22/22 21:45 Albumin 2.6 g/dL (3.9-5) L 04/22/22 21:45 Albumin/Globulin Ratio 1.5 % 04/22/22 21:45 TSH 3.310 mlU/mL (0.270-4.200) 04/21/22 13:21 Urine Color Straw (Yellow) 04/21/22 Unknown Urine Turbidity Clear (Clear) 04/21/22 Unknown Urine pH 5.0 (5.0-7.0) 04/21/22 Unknown Ur Specific Bowie 1.020 (1.003-1.030) 04/21/22 Unknown Urine Protein 100 mg/dl mg/dL (Negative) 04/21/22 Unknown Urine Glucose (UA) 500 mg/dL (Negative) 04/21/22 Unknown Urine Ketones 160 mg/dL (Negative) 04/21/22 Unknown Urine Blood Trace (Negative) 04/21/22 Unknown Urine Nitrite Negative (Negative) 04/21/22 Unknown Ur Reducing Substances Not Reportable 04/21/22 Unknown Urine Bilirubin Negative (Negative) 04/21/22 Unknown Urine Ictotest Not Reportable 04/21/22 Unknown Urine Urobilinogen < 2.0 mg/dL (<2.0) 04/21/22 Unknown Ur Leukocyte Esterase Negative (Negative) 04/21/22 Unknown Urine WBC (Auto) 4.0 /HPF (0.0-6.0) 04/21/22 Unknown Urine RBC (Auto) 2.0 /HPF (0.0-6.0) 04/21/22 Unknown U Epithel Cells (Auto) 1.0 /HPF (0-13.0) 04/21/22 Unknown Urine Mucus Few /HPF 04/21/22 Unknown Salicylates < 0.3 mg/dL (2.8-20.0) L 04/21/22 13:21 Urine Opiates Screen Presumptive negative 04/21/22 13:38 Urine Methadone Screen Presumptive negative 04/21/22 13:38 Acetaminophen 5.0 ug/mL (10.0-30.0) L 04/21/22 13:21 Ur Barbiturates Screen Presumptive negative 04/21/22 13:38 Ur Phencyclidine Scrn Presumptive negative 04/21/22 13:38 Ur Amphetamines Screen Presumptive negative 04/21/22 13:38 U Benzodiazepines Scrn Presumptive negative 04/21/22 13:38 Urine Cocaine Screen Presumptive negative 04/21/22 13:38 U Marijuana (THC) Screen Presumptive negative 04/21/22 13:38 Drugs of Abuse Note Disclamer 04/21/22 13:38 Plasma/Serum Alcohol < 0.01 % (0-0.07) 04/21/22 13:21 Hepatitis A IgM Ab Non-reactive (NonReactive) 04/21/22 13:21 Hep Bs Antigen Non-reactive (Negative) 04/21/22 13:21 Hep B Core IgM Ab Non-reactive (NonReactive) 04/21/22 13:21 Hepatitis C Antibody Reactive (NonReactive) A 04/21/22 13:21 HIV 1&2 Antibody Rapid Non react (Non React) 04/22/22 13:21 HIV P24 Antigen Non react (Non React) 04/22/22 13:21 Microbiology: Microbiology 04/21/22 13:21 Peripheral/Venous Blood Culture - Preliminary NO GROWTH AFTER 24 HOURS 04/21/22 13:21 Peripheral/Venous Blood Culture - Preliminary NO GROWTH AFTER 24 HOURS Stout/IV: Voiding Method Indwelling Catheter Active Medications - Current Medications Current Medications: Generic Name Dose Route Start Last Admin Trade Name Freq PRN Reason Stop Dose Admin Acetaminophen 650 mg 04/22/22 01:44 Acetaminophen 325 Mg Tab PO Q4H PRN Pain MILD(1-3)/Fever >100.5/KHAN Aspirin 300 mg 04/22/22 15:00 04/22/22 18:08 Aspirin 300 Mg Rect Supp ME Not Given QDAY ANALISA Dextrose 50 ml 04/23/22 09:12 Dextrose 50% In Water (25gm) 50 Ml Syringe IV Q30MIN PRN Hypoglycemia Protocol Dextrose 50 ml 04/23/22 12:00 04/23/22 13:18 Dextrose 50% In Water (25gm) 50 Ml Syringe IV 04/23/22 16:00 50 ml ONCE@1200 ANALISA Administration Famotidine 20 mg 04/22/22 22:00 04/22/22 21:12 Famotidine 20 Mg/2 Ml Inj IV 20 mg BID ANALISA Administration Hydromorphone HCl 0.5 mg 04/22/22 01:44 Hydromorphone 0.5 Mg/0.5 Ml Inj IV Q3H PRN Pain , Severe (7-10) Hydrophilic Ointment 1 applic 04/22/22 20:12 Lip Therapy Vaseline TP Q2HR PRN Dry Lips Ceftriaxone Sodium 2 gm in 100 mls @ 200 mls/hr 04/22/22 08:30 04/23/22 11:16 Rocephin/Ns 2 Gm/100 Ml IV Infused Q24H ANALISA Infusion Protocol NORepinephrine/NS 8 MG-250 ML 8 mg in 250 mls @ 9.375 mls/hr 04/22/22 17:00 04/23/22 13:06 Norepinephrine/Ns 8 Mg-250 Ml (Double Conc) IV 12 mcg/min TITRATE ANALISA 22.5 mls/hr Titration Protocol 5 MCG/MIN Dopamine HCl/Dextrose 800 mg in 250 mls @ 2.381 mls/hr 04/22/22 18:00 04/23/22 13:07 Dopamine 800 Mg/D5w 250ml IV 0 mcg/kg/min TITR ANALISA 0 mls/hr Titration Protocol 2 MCG/KG/MIN Vasopressin 20 unit/ Sodium 101 mls @ 9.09 mls/hr 04/22/22 18:00 04/23/22 06:09 Chloride IV 0.03 units/min TITR ANALISA 9.09 mls/hr Administration Protocol 0.03 UNITS/MIN CALC GLUCONATE 1GM/NS 100 ML 1 gm in 100 mls @ 100 mls/hr 04/23/22 12:00 Calcium Gluonate/Ns 1,000mg/100ml IV 04/23/22 16:00 ONCE@1200 ANALISA Sodium Bicarbonate 150 meq/ 1,150 mls @ 125 mls/hr 04/23/22 13:00 Dextrose IV DIRECT [facility] Insulin Human Regular 0 units 04/23/22 12:00 Insulin Regular, Human 100 Units/1 Ml SUB-Q Q6H [facility] Protocol Insulin Human Regular 10 units 04/23/22 12:00 04/23/22 13:16 Insulin Regular, Human 100 Units/1 Ml IV 04/23/22 16:00 10 units ONCE@1200 [facility] Administration Metoclopramide HCl 10 mg 04/22/22 01:44 Metoclopramide 10 Mg/2 Ml Inj IV Q6H PRN Nausea And Vomiting Multi-Ingred Cream/Lotion/Oil/Oint 1 applic 04/22/22 20:12 Mineral Oil/Petrolatum, White Ophth Oint 3.5 Gm OU Q4HR PRN Dry Eye(s) Ondansetron HCl 4 mg 04/22/22 01:44 Ondansetron 4 Mg/2 Ml Inj IV Q8H PRN Nausea And Vomiting Senna/Docusate Sodium 1 tab 04/22/22 22:00 04/22/22 21:12 Sennosides/Docusate Sodium 8.6/50 Mg Tab FEEDTUBE Not Given BID [facility] Sodium Bicarbonate 50 meq 04/23/22 12:00 04/23/22 12:34 Sodium Bicarb 8.4% 50 Meq/50 Ml Syringe IV 04/23/22 16:00 50 meq ONCE@1200 ANALISA Administration Sodium Chloride 10 ml 04/22/22 10:00 04/23/22 09:45 Sodium Chloride 0.9% 10 Ml Flush Syringe IV 10 ml BID ANALISA Administration Sodium Chloride 10 ml 04/22/22 01:44 Sodium Chloride 0.9% 10 Ml Flush Syringe IV PRN PRN LINE FLUSH Sodium Chloride 5 ml 04/22/22 20:12 Sodium Chloride 0.9% 500 Ml Ivpb IV DIRECT PRN ARTERIAL WEBLOGIC ADMINISTRATOR Sodium Polystyrene Sulfonate 30 gm 04/23/22 10:00 Sodium Polystyrene 15 Gm/60 Ml Oral Liqd PO 04/23/22 14:00 ONCE@1000 [facility] Nutrition/Malnutrition Assess - Dietary Evaluation Nutrition/Malnutrition Findings: Nutrition Notes Start: 04/22/22 09:41 Freq: Status: Active Protocol: Document 04/23/22 09:50 VIK (Rec: 04/23/22 10:35 VIK [id number]) Nutrition Notes Initial or Follow up Reassessment Current Diagnosis Diabetes,Respiratory Failure, Malnutrition,Stroke Other Pertinent Diagnosis DKA, s/p PEA w/ROSC x3, Metabolic Encephalopatrhy/ Acidosis, Hepatitis C, .. Current Diet NPO (since 04/21 12:55), TF- Vital AF 1.2 Shimon @ 65 ml/hr( from L 04/23). Labs/Tests 04/23: Na 150, K 5.9, Cl 116.7 , CO2 14, BUN 29, Glu 117, Ca 7.6, Phos 8.6. Pertinent Medications 04/23: D5/0.45ns @ 125ml/hr, Vasopressin 20U, others nutritionally unremarkable. 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 No body weight change reported in 1 day. Weight Status Appropriate Subjective/Other Information RD consult for write/managhe TF. Pt on NPO since admission. Pt is on Mechanical Ventilation, O2 saturation @ 95%, according to Physical Assessment History notes. Pt has caries and missing teeth, according to Physical Assessment History notes. Pt shows bilateral-LE Pitting Edema 2+, according to Physical Assessment History notes. Code BLUE was called on 04/22, Pt went on Cardio/pulmonary arrest x 3, Pt was intubated, according to Event notes. Procedure on 04/22: R-IJV VasCath placement, well tolerated, according to Procedure notes. Pt shows unspecified bruises as signs of concern for skin risk at the time, according to Physical Assessment History notes. Percent of energy/protein needs met: Pt on NPO since admission. Prescribed TF-Vital AF 1.2 Shimon @ 65 ml/hr provides for energy/protein needs (1,860 Kcal/116 g) during LOS, 101% Kcal; 100% AA. Burn Absent Trauma Absent GI Symptoms None Food Allergy No Skin Integrity/Comment Unspecified bruises. 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 As Evidenced by Signs and Symptoms Pt currently on NPO. Is patient on ventilator? Yes Is Patient Ambulatory and/or Out of Bed No REE-([facility]-confined to bed) 1673.004 Kcal/Kg value to use for calculation 29 Approximate Energy Requirements Using 1842 kcal/Kg Calculation Used for Recommendations Kcal/kg Additional Notes Protein: 1.2-2 g/Kg ABW; 77- 128 g/day. Fluids: 1 ml/Kcal, or as per MD. Nutrition Intervention Nutrition Support: Start TF-Vital AF 1.2 Shimon @ 65 ml/hr. Flush: 100 ml wayer Q 4 hr, or as per MD. Kcal 1,860 Protein (gm) 116 Carbohydrates (gm) 171 Fat (gm) 84 Fluid (mL) 1,257 Fiber (gm) 8 % RDI: 101% Kcal; 100% AA. Goal #1 Provide at least 75% of energy /protein needs through Enteral Feeding during LOS. Follow-Up By: 04/25/22 Additional Comments Start monitoring TF tolerance and BM. <FRANSISCA SANON - Last Filed: 04/30/22 11:23> History Interval history: I saw and evaluated the patient. I agree with the findings and the plan of care as documented in the Nurse Practitioner's~note, with the following corrections and additions. Hospitalist Physical - Constitutional Vitals: Temp Pulse Resp BP Pulse Ox 99.5 F 70 0 L 90/49 0 L 04/25/22 12:00 04/25/22 15:00 04/25/22 15:30 04/25/22 16:00 04/25/22 14:57 HEART Score - HEART Score Troponin: Troponin T 2.840 ng/mL (0.00-0.029) H* D 04/23/22 10:46 Results - Labs CBC & Chem 7: 04/25/22 03:40 04/25/22 12:45 Labs: Laboratory Last Values WBC 7.1 K/mm3 (4.5-11.0) 04/25/22 03:40 RBC 2.89 M/mm3 (3.65-5.03) L 04/25/22 03:40 Hgb 9.1 gm/dl (11.8-15.2) L 04/25/22 03:40 Hct 29.9 % (35.5-45.6) L 04/25/22 03:40 MCV 103 fl (84-94) H 04/25/22 03:40 MCH 31 pg (28-32) 04/25/22 03:40 MCHC 30 % (32-34) L 04/25/22 03:40 RDW 19.6 % (13.2-15.2) H 04/25/22 03:40 Plt Count 46 K/mm3 (140-440) L 04/25/22 03:40 Lymph % (Auto) 5.7 % (13.4-35.0) L 04/21/22 13:21 Edgar % (Auto) 7.9 % (0.0-7.3) H 04/21/22 13:21 Eos % (Auto) 0.0 % (0.0-4.3) 04/21/22 13:21 Baso % (Auto) 0.1 % (0.0-1.8) 04/21/22 13:21 Lymph # (Auto) 0.4 K/mm3 (1.2-5.4) L 04/21/22 13:21 Edgar # (Auto) 0.5 K/mm3 (0.0-0.8) 04/21/22 13:21 Eos # (Auto) 0.0 K/mm3 (0.0-0.4) 04/21/22 13:21 Baso # (Auto) 0.0 K/mm3 (0.0-0.1) 04/21/22 13:21 Add Manual Diff Complete 04/22/22 11:22 Total Counted 100 04/22/22 11:22 Seg Neutrophils % 86.3 % (40.0-70.0) H 04/21/22 13:21 Seg Neuts % (Manual) 82.0 % (40.0-70.0) H 04/22/22 11:22 Band Neutrophils % 6.0 % 04/22/22 11:22 Lymphocytes % (Manual) 6.0 % (13.4-35.0) L 04/22/22 11:22 Reactive Lymphs % (Man) 0 % 04/22/22 11:22 Monocytes % (Manual) 4.0 % (0.0-7.3) 04/22/22 11:22 Eosinophils % (Manual) 1.0 % (0.0-4.3) 04/22/22 11:22 Basophils % (Manual) 0 % (0.0-1.8) 04/22/22 11:22 Metamyelocytes % 1.0 % 04/22/22 11:22 Myelocytes % 0 % 04/22/22 11:22 Promyelocytes % 0 % 04/22/22 11:22 Blast Cells % 0 % 04/22/22 11:22 Nucleated RBC % Not Reportable 04/22/22 11:22 Seg Neutrophils # 6.0 K/mm3 (1.8-7.7) 04/21/22 13:21 Seg Neutrophils # Man 4.2 K/mm3 (1.8-7.7) 04/22/22 11:22 Band Neutrophils # 0.3 K/mm3 04/22/22 11:22 Lymphocytes # (Manual) 0.3 K/mm3 (1.2-5.4) L 04/22/22 11:22 Abs React Lymphs (Man) 0.0 K/mm3 04/22/22 11:22 Monocytes # (Manual) 0.2 K/mm3 (0.0-0.8) 04/22/22 11:22 Eosinophils # (Manual) 0.1 K/mm3 (0.0-0.4) 04/22/22 11:22 Basophils # (Manual) 0.0 K/mm3 (0.0-0.1) 04/22/22 11:22 Metamyelocytes # 0.1 K/mm3 04/22/22 11:22 Myelocytes # 0.0 K/mm3 04/22/22 11:22 Promyelocytes # 0.0 K/mm3 04/22/22 11:22 Blast Cells # 0.0 K/mm3 04/22/22 11:22 WBC Morphology Not Reportable 04/22/22 11:22 Hypersegmented Neuts Not Reportable 04/22/22 11:22 Hyposegmented Neuts Not Reportable 04/22/22 11:22 Hypogranular Neuts Not Reportable 04/22/22 11:22 Smudge Cells Not Reportable 04/22/22 11:22 Toxic Granulation Not Reportable 04/22/22 11:22 Toxic Vacuolation Not Reportable 04/22/22 11:22 Dohle Bodies Not Reportable 04/22/22 11:22 Pelger-Huet Anomaly Not Reportable 04/22/22 11:22 Benoit Rods Not Reportable 04/22/22 11:22 Platelet Estimate Consistent w auto 04/22/22 11:22 Clumped Platelets Not Reportable 04/22/22 11:22 Plt Clumps, EDTA Not Reportable 04/22/22 11:22 Large Platelets Not Reportable 04/22/22 11:22 Giant Platelets Not Reportable 04/22/22 11:22 Platelet Satelliting Not Reportable 04/22/22 11:22 Plt Morphology Comment Not Reportable 04/22/22 11:22 RBC Morphology Normal 04/22/22 11:22 Dimorphic RBCs Not Reportable 04/22/22 11:22 Polychromasia Not Reportable 04/22/22 11:22 Hypochromasia Not Reportable 04/22/22 11:22 Poikilocytosis Not Reportable 04/22/22 11:22 Anisocytosis Not Reportable 04/22/22 11:22 Microcytosis Not Reportable 04/22/22 11:22 Macrocytosis Not Reportable 04/22/22 11:22 Spherocytes Not Reportable 04/22/22 11:22 Pappenheimer Bodies Not Reportable 04/22/22 11:22 Sickle Cells Not Reportable 04/22/22 11:22 Target Cells Not Reportable 04/22/22 11:22 Tear Drop Cells Not Reportable 04/22/22 11:22 Ovalocytes Not Reportable 04/22/22 11:22 Helmet Cells Not Reportable 04/22/22 11:22 [place] Bodies Not Reportable 04/22/22 11:22 [place] Rings Not Reportable 04/22/22 11:22 [place] Cells Not Reportable 04/22/22 11:22 Bite Cells Not Reportable 04/22/22 11:22 Crenated Cell Not Reportable 04/22/22 11:22 Elliptocytes Not Reportable 04/22/22 11:22 Acanthocytes (Spur) Not Reportable 04/22/22 11:22 Rouleaux Not Reportable 04/22/22 11:22 Hemoglobin C Crystals Not Reportable 04/22/22 11:22 Schistocytes Not Reportable 04/22/22 11:22 Malaria parasites Not Reportable 04/22/22 11:22 James Bodies Not Reportable 04/22/22 11:22 Hem Pathologist Commnt No 04/22/22 11:22 PT 38.0 Sec. (12.2-14.9) H 04/22/22 19:58 INR 3.29 (0.87-1.13) H 04/22/22 19:58 APTT 236.4 Sec. (24.2-36.6) H* 04/22/22 19:58 Heparin Anti-Xa Level < 0.10 U.I./ml (0.3-0.7) L 04/24/22 06:00 ABG pH 7.167 pH Units (7.350-7.450) L* 04/25/22 03:15 ABG pCO2 40.9 mm Hg 04/25/22 03:15 ABG pO2 95.3 mm Hg (80.0-90.0) H 04/25/22 03:15 ABG HCO3 14.5 mmol/L (20.0-26.0) L 04/25/22 03:15 ABG O2 Saturation 95.4 % (95.0-99.0) 04/25/22 03:15 ABG O2 Content 11.5 (0.0-44) 04/25/22 03:15 ABG Base Excess -13.2 mmol/L (-2.0-3.0) L 04/25/22 03:15 ABG Hemoglobin 8.5 gm/dl (14.0-18.0) L 04/25/22 03:15 ABG Carboxyhemoglobin 1.2 % (0.0-5.0) 04/25/22 03:15 ABG Methemoglobin 0.1 % (0.0-1.5) 04/25/22 03:15 VBG pH 7.265 (7.320-7.420) L 04/21/22 13:21 Oxyhemoglobin 94.1 % (95.0-99.0) L 04/25/22 03:15 FiO2 90 % 04/25/22 03:15 Sodium 157 mmol/L (137-145) H 04/25/22 12:45 Potassium 5.5 mmol/L (3.6-5.0) H 04/25/22 12:45 Chloride 106.6 mmol/L (98-107) 04/25/22 12:45 Carbon Dioxide 12 mmol/L (22-30) L 04/25/22 12:45 Anion Gap 44 mmol/L 04/25/22 12:45 BUN 43 mg/dL (9-20) H 04/25/22 12:45 Creatinine 3.4 mg/dL (0.8-1.3) H 04/25/22 12:45 Estimated GFR 18 ml/min 04/25/22 12:45 BUN/Creatinine Ratio 13 % 04/25/22 12:45 Glucose 95 mg/dL (75-100) 04/25/22 12:45 POC Glucose 85 mg/dL (70-105) 04/25/22 12:43 Hemoglobin A1c 15.4 % (4-6) H 04/22/22 09:34 Lactic Acid 11.60 mmol/L (0.7-2.0) H* 04/24/22 Unknown Calcium 5.7 mg/dL (8.4-10.2) L* 04/25/22 12:45 Phosphorus 8.90 mg/dL (2.5-4.5) H 04/25/22 03:40 Magnesium 2.10 mg/dL (1.7-2.3) 04/25/22 03:40 Total Bilirubin 3.00 mg/dL (0.1-1.2) H 04/25/22 03:40 Direct Bilirubin 2.1 mg/dL (0-0.2) H 04/24/22 06:00 Indirect Bilirubin 0.2 mg/dL 04/24/22 06:00 AST 13099 units/L (5-40) H 04/25/22 03:40 ALT 4800 units/L (7-56) H 04/25/22 03:40 Alkaline Phosphatase 205 units/L (35-129) H 04/25/22 03:40 Ammonia 17.0 umol/L (25-60) L 04/21/22 13:21 Total Creatine Kinase 1942 units/L (55-170) H 04/23/22 10:46 CK-MB (CK-2) 106.7 ng/mL (0.0-4.0) H 04/23/22 10:46 CK-MB (CK-2) Rel Index 5.4 (0-4) H 04/23/22 10:46 Troponin T 2.840 ng/mL (0.00-0.029) H* D 04/23/22 10:46 Total Protein 3.1 g/dL (6.3-8.2) L 04/25/22 03:40 Albumin 1.7 g/dL (3.9-5) L 04/25/22 03:40 Albumin/Globulin Ratio 1.2 % 04/25/22 03:40 Triglycerides 139 mg/dL (2-149) 04/21/22 13:21 Cholesterol 189 mg/dL (50-199) 04/21/22 13:21 LDL Cholesterol Direct 104 mg/dL (50-130) 04/21/22 13:21 HDL Cholesterol 47 mg/dL (40-59) 04/21/22 13:21 Cholesterol/HDL Ratio 4.02 % 04/21/22 13:21 TSH 3.310 mlU/mL (0.270-4.200) 04/21/22 13:21 Urine Color Straw (Yellow) 04/21/22 Unknown Urine Turbidity Clear (Clear) 04/21/22 Unknown Urine pH 5.0 (5.0-7.0) 04/21/22 Unknown Ur Specific [place] 1.020 (1.003-1.030) 04/21/22 Unknown Urine Protein 100 mg/dl mg/dL (Negative) 04/21/22 Unknown Urine Glucose (UA) 500 mg/dL (Negative) 04/21/22 Unknown Urine Ketones 160 mg/dL (Negative) 04/21/22 Unknown Urine Blood Trace (Negative) 04/21/22 Unknown Urine Nitrite Negative (Negative) 04/21/22 Unknown Ur Reducing Substances Not Reportable 04/21/22 Unknown Urine Bilirubin Negative (Negative) 04/21/22 Unknown Urine Ictotest Not Reportable 04/21/22 Unknown Urine Urobilinogen < 2.0 mg/dL (<2.0) 04/21/22 Unknown Ur Leukocyte Esterase Negative (Negative) 04/21/22 Unknown Urine WBC (Auto) 4.0 /HPF (0.0-6.0) 04/21/22 Unknown Urine RBC (Auto) 2.0 /HPF (0.0-6.0) 04/21/22 Unknown U Epithel Cells (Auto) 1.0 /HPF (0-13.0) 04/21/22 Unknown Urine Mucus Few /HPF 04/21/22 Unknown Salicylates < 0.3 mg/dL (2.8-20.0) L 04/21/22 13:21 Urine Opiates Screen Presumptive negative 04/21/22 13:38 Urine Methadone Screen Presumptive negative 04/21/22 13:38 Acetaminophen 5.0 ug/mL (10.0-30.0) L 04/21/22 13:21 Ur Barbiturates Screen Presumptive negative 04/21/22 13:38 Ur Phencyclidine Scrn Presumptive negative 04/21/22 13:38 Ur Amphetamines Screen Presumptive negative 04/21/22 13:38 U Benzodiazepines Scrn Presumptive negative 04/21/22 13:38 Urine Cocaine Screen Presumptive negative 04/21/22 13:38 U Marijuana (THC) Screen Presumptive negative 04/21/22 13:38 Drugs of Abuse Note Disclamer 04/21/22 13:38 Plasma/Serum Alcohol < 0.01 % (0-0.07) 04/21/22 13:21 Hepatitis A IgM Ab Non-reactive (NonReactive) 04/21/22 13:21 Hep Bs Antigen Non-reactive (Negative) 04/21/22 13:21 Hep B Core IgM Ab Non-reactive (NonReactive) 04/21/22 13:21 Hepatitis C Antibody Reactive (NonReactive) A 04/21/22 13:21 HIV 1&2 Antibody Rapid Non react (Non React) 04/22/22 13:21 HIV P24 Antigen Non react (Non React) 04/22/22 13:21 Stout/IV: Voiding Method Indwelling Catheter Nutrition/Malnutrition Assess - Dietary Evaluation Nutrition/Malnutrition Findings: Nutrition Notes Start: 04/22/22 09:41 Freq: Status: Discharge Protocol: Document 04/25/22 09:55 VIK (Rec: 04/25/22 10:17 VIK [id number]) Nutrition Notes Initial or Follow up Brief Note Current Diagnosis Diabetes,Respiratory Failure, Malnutrition,Stroke Other Pertinent Diagnosis DKA, s/p PEA w/ROSC x3, Metabolic Encephalopatrhy/ Acidosis, Hepatitis C, .. Current Diet TF-Vital AF 1.2 Shimon @ 20 ml/hr (from L 04/25). Height 5 ft 8 in Weight 63.503 kg [place] Body Weight (kg) 70.00 BMI 21.2 Weight change and time frame No body weight change reported in 3 days. Weight Status Appropriate Subjective/Other Information RD consult for routine F/U on TF tolerance/continuation. TF continues, but has been reduced to trickle feeding (20 ml/hr) by . Pt is on Mechanical Ventilation, O2 saturation @ 98%, according to Physical Assessment History notes. Pt is now on DNR status. Multiorgan failute,likely anoxic brain injury, renal failure worsening, according to Progress notes. Percent of energy/protein needs met: Prescribed TF-Vital AF 1.2 Shimon @ 20 ml/hr provides for energy/protein needs (575 Kcal /36 g) during LOS, 31% Kcal; 47% AA. #1 Nutrition Diagnosis Inadequate oral intake Diagnosis Progress(for reassessment Continues documentation) Is patient on ventilator? Yes Is Patient Ambulatory and/or Out of Bed No [facility] 1673.004 Kcal/Kg value to use for calculation 29 Approximate Energy Requirements Using 1842 kcal/Kg Calculation Used for Recommendations Kcal/kg Additional Notes Protein: 1.2-2 g/Kg ABW; 77- 128 g/day. Fluids: 1 ml/Kcal, or as per MD. Nutrition Intervention Nutrition Support: Trickle Feeding TF-Vital AF 1. 2 Shimon @ 20 ml/hr. Flush: 240 ml wayer Q 4 hr, or as per MD. Kcal 575 Protein (gm) 36 Carbohydrates (gm) 53 Fat (gm) 26 Fluid (mL) 389 Fiber (gm) 2 % RDI: 31% Kcal; 47% AA. Goal #1 Adjust the dietary intervention to better serve Pt's needs and clinical conditions during LOS. Follow-Up By: 05/02/22 Additional Comments Continue monitoring TF tolerance and BM.
[2022-04-23 13:23] LABS: Platelet Count 65 K/mm3 (140-440)
--- NOTE | 2022-04-23 14:21 | XRay Report ---
ABDOMEN 1 VIEW 04/23/2022 INDICATION / CLINICAL INFORMATION: OG tube placement. COMPARISON: None available. FINDINGS: TUBES / LINES: Enteric tube terminates within the stomach with the side-port within the stomach as we ll. There is partial visualization of the tubing along the right lower pelvis possibly representing a femoral line. BOWEL GAS PATTERN: No significant abnormality. FREE AIR / EXTRALUMINAL GAS: None seen. ADDITIONAL FINDINGS: No significant additional findings. IMPRESSION: 1. Enteric tube terminates within the stomach with the side-port within the stomach as well. Signer Name: Khoi Bingham DO Signed: 04/23/2022 2:16 PM Workstation Name: [employer]
[2022-04-23 14:28] LABS: Chol/HDL Ratio 4.02 %
--- NOTE | 2022-04-23 14:48 | Consultation ---
History of Present Illness Consult date: 04/23/22 Reason for Consult: s/p cardiac arrests History of present illness: 66 yo male with bivalve icd, heart failure, atrial fibrillation, dm, who pres ented initially with encephalopathy with concern during hospital course initially for SIRS but then yesterday suffered multiple cardiac arrests. Patient is noted to be severely encephalopathic since the cardiac events. RN, at bedside, notes no clinical seizure activity. Currently, the patient is requiring two pressors and is too unstable for a nchct, per RN. Past History Past Medical History: atrial fib, heart failure Past Surgical History: Other (unalbe to obtain due to loc;) Social history: other (unable to obtain due to loc;) Family history: other (unable to obtain due to loc;) Medications and Allergies Allergies Allergy/AdvReac Type Severity Reaction Status Date / Time No Known Allergies Allergy Verified 04/21/22 14:19 Home Medications Medication Instructions Recorded Confirmed Last Taken Type Baclofen 20 mg PO Q12H PRN #20 tab 04/17/22 Unknown Rx Naproxen 500 mg PO Q12H PRN #30 tab 04/17/22 Unknown Rx metFORMIN [Glucophage] 500 mg PO Q12H #60 tab 04/17/22 Unknown Rx Active Meds: Active Medications Acetaminophen (Acetaminophen 325 Mg Tab) 650 mg PO Q4H PRN PRN Reason: Pain MILD(1-3)/Fever >100.5/KHAN Aspirin (Aspirin 300 Mg Rect Supp) 300 mg MI QDAY [facility] Last Admin: 04/22/22 18:08 Dose: Not Given Dextrose (Dextrose 50% In Water (25gm) 50 Ml Syringe) 50 ml IV Q30MIN PRN; Protocol PRN Reason: Hypoglycemia Dextrose (Dextrose 50% In Water (25gm) 50 Ml Syringe) 50 ml IV ONCE@1200 [facility] Stop: 04/23/22 16:00 Last Admin: 04/23/22 13:18 Dose: 50 ml Famotidine (Famotidine 20 Mg/2 Ml Inj) 20 mg IV BID [facility] Last Admin: 04/22/22 21:12 Dose: 20 mg Hydromorphone HCl (Hydromorphone 0.5 Mg/0.5 Ml Inj) 0.5 mg IV Q3H PRN PRN Reason: Pain , Severe (7-10) Hydrophilic Ointment (Lip Therapy Vaseline) 1 applic TP Q2HR PRN PRN Reason: Dry Lips NORepinephrine/NS 8 MG-250 ML (Norepinephrine/Ns 8 Mg-250 Ml (Double Conc)) 8 mg in 250 mls @ 9.375 mls/hr IV TITRATE ANALISA; Protocol Last Titration: 04/23/22 14:20 Dose: 10 mcg/min, 18.75 mls/hr Dopamine HCl/Dextrose (Dopamine 800 Mg/D5w 250ml) 800 mg in 250 mls @ 2.381 mls/hr IV TITR ANALISA; Protocol Last Titration: 04/23/22 13:07 Dose: 0 mcg/kg/min, 0 mls/hr Vasopressin 20 unit/ Sodium (Chloride) 101 mls @ 9.09 mls/hr IV TITR ANALISA; Protocol Last Admin: 04/23/22 06:09 Dose: 0.03 units/min, 9.09 mls/hr CALC GLUCONATE 1GM/NS 100 ML (Calcium Gluonate/Ns 1,000mg/100ml) 1 gm in 100 mls @ 100 mls/hr IV ONCE@1200 [facility] Stop: 04/23/22 16:00 Last Admin: 04/23/22 14:08 Dose: 100 mls/hr Sodium Bicarbonate 150 meq/ (Dextrose) 1,150 mls @ 125 mls/hr IV DIRECT ANALISA Cefepime HCl (Cefepime/Ns 2 Gm/100 Ml) 2 gm in 100 mls @ 200 mls/hr IV Q12H ANALISA; Protocol Metronidazole (Flagyl 500 Mg/100 Ml) 500 mg in 100 mls @ 100 mls/hr IV Q12H ANALISA; Protocol Insulin Human Regular (Insulin Regular, Human 100 Units/1 Ml) 0 units SUB-Q Q6H ANALISA; Protocol Insulin Human Regular (Insulin Regular, Human 100 Units/1 Ml) 10 units IV ONCE@1200 [facility] Stop: 04/23/22 16:00 Last Admin: 04/23/22 13:16 Dose: 10 units Metoclopramide HCl (Metoclopramide 10 Mg/2 Ml Inj) 10 mg IV Q6H PRN PRN Reason: Nausea And Vomiting Multi-Ingred Cream/Lotion/Oil/Oint (Mineral Oil/Petrolatum, White Ophth Oint 3.5 Gm) 1 applic OU Q4HR PRN PRN Reason: Dry Eye(s) Ondansetron HCl (Ondansetron 4 Mg/2 Ml Inj) 4 mg IV Q8H PRN PRN Reason: Nausea And Vomiting Senna/Docusate Sodium (Sennosides/Docusate Sodium 8.6/50 Mg Tab) 1 tab FEEDTUBE BID [facility] Last Admin: 04/22/22 21:12 Dose: Not Given Sodium Bicarbonate (Sodium Bicarb 8.4% 50 Meq/50 Ml Syringe) 50 meq IV ONCE@1200 [facility] Stop: 04/23/22 16:00 Last Admin: 04/23/22 12:34 Dose: 50 meq Sodium Chloride (Sodium Chloride 0.9% 10 Ml Flush Syringe) 10 ml IV BID [facility] Last Admin: 04/23/22 09:45 Dose: 10 ml Sodium Chloride (Sodium Chloride 0.9% 10 Ml Flush Syringe) 10 ml IV PRN PRN PRN Reason: LINE FLUSH Sodium Chloride (Sodium Chloride 0.9% 500 Ml Ivpb) 5 ml IV DIRECT PRN PRN Reason: [employer]ICIAN Review of Systems ROS unobtainable: due to mental status Physical Examination - Vital Signs Vital Signs: Vital Signs Temp Pulse Resp BP Pulse Ox 97.5 F L 111 H 18 112/73 100 04/21/22 13:14 04/21/22 13:14 04/21/22 13:14 04/21/22 13:14 04/21/22 13:14 - Physical Exam Narrative exam: Gen: nad, intubated; Head: normocephalic; Eyes: no gaze deviation; ENT: +ETT; CVS: warm and well-perfused; Pulm: no respiratory distress; GI: appears non-distended; Ext: no cyanosis appreciated at distal extremities; Skin: no acute rash or hives appreciated at distal extremities; Heme: no pathologic ecchymosis appreciated at distal extremities; Neuro: comatose, intubated, aphasic, CN 2 - non-reactive pupils, CN 3, 4, 6 - oculocephalic absent, CN 5/7 - corneal reflex absent, CN 9/10 - no cough reflex elicited, CN 11/12 - pt cannot cooperate secondary to LOC; Motor/Sensory - 0/5 at all exts to tactile stimuli; Cerebellar/Gait - pt cannot cooperate secondary to LOC; Results - Laboratory Findings CBC and BMP: 04/23/22 11:30 04/24/22 03:16 Abnormal Lab Findings: Abnormal Labs 04/21/22 04/21/22 04/21/22 13:21 13:21 13:21 RBC Hgb Hct MCV 98 H MCHC RDW 18.0 H Plt Count Lymph % (Auto) 5.7 L Mobile % (Auto) 7.9 H Lymph # (Auto) 0.4 L Seg Neutrophils % 86.3 H Seg Neuts % (Manual) Lymphocytes % (Manual) Lymphocytes # (Manual) PT INR APTT 22.0 L Heparin Anti-Xa Level ABG pH ABG pO2 ABG HCO3 ABG O2 Saturation ABG Base Excess ABG Hemoglobin VBG pH Oxyhemoglobin Sodium 149 H D Potassium Chloride Carbon Dioxide 12 L BUN 22 H Creatinine Glucose 402 H POC Glucose Hemoglobin A1c Lactic Acid Calcium Phosphorus Magnesium Total Bilirubin AST 44 H ALT 82 H Alkaline Phosphatase Ammonia Total Creatine Kinase 257 H CK-MB (CK-2) CK-MB (CK-2) Rel Index Troponin T Total Protein Albumin 3.6 L Salicylates Acetaminophen Hepatitis C Antibody 04/21/22 04/21/22 04/21/22 13:21 13:21 13:21 RBC Hgb Hct MCV MCHC RDW Plt Count Lymph % (Auto) Mobile % (Auto) Lymph # (Auto) Seg Neutrophils % Seg Neuts % (Manual) Lymphocytes % (Manual) Lymphocytes # (Manual) PT INR APTT Heparin Anti-Xa Level ABG pH ABG pO2 ABG HCO3 ABG O2 Saturation ABG Base Excess ABG Hemoglobin VBG pH Oxyhemoglobin Sodium Potassium Chloride Carbon Dioxide BUN Creatinine Glucose POC Glucose Hemoglobin A1c Lactic Acid 2.30 H* Calcium Phosphorus Magnesium Total Bilirubin AST ALT Alkaline Phosphatase Ammonia 17.0 L Total Creatine Kinase CK-MB (CK-2) CK-MB (CK-2) Rel Index Troponin T Total Protein Albumin Salicylates Acetaminophen Hepatitis C Antibody Reactive A 04/21/22 04/21/22 04/21/22 13:21 13:21 13:21 RBC Hgb Hct MCV MCHC RDW Plt Count Lymph % (Auto) Mobile % (Auto) Lymph # (Auto) Seg Neutrophils % Seg Neuts % (Manual) Lymphocytes % (Manual) Lymphocytes # (Manual) PT INR APTT Heparin Anti-Xa Level ABG pH ABG pO2 ABG HCO3 ABG O2 Saturation ABG Base Excess ABG Hemoglobin VBG pH Oxyhemoglobin Sodium Potassium Chloride Carbon Dioxide BUN Creatinine Glucose POC Glucose Hemoglobin A1c Lactic Acid Calcium Phosphorus Magnesium Total Bilirubin AST ALT Alkaline Phosphatase Ammonia Total Creatine Kinase CK-MB (CK-2) CK-MB (CK-2) Rel Index Troponin T 0.537 H* Total Protein Albumin Salicylates < 0.3 L Acetaminophen 5.0 L Hepatitis C Antibody 04/21/22 04/21/22 04/21/22 13:21 20:33 21:12 RBC Hgb Hct MCV MCHC RDW Plt Count Lymph % (Auto) Mobile % (Auto) Lymph # (Auto) Seg Neutrophils % Seg Neuts % (Manual) Lymphocytes % (Manual) Lymphocytes # (Manual) PT INR APTT Heparin Anti-Xa Level ABG pH ABG pO2 ABG HCO3 ABG O2 Saturation ABG Base Excess ABG Hemoglobin VBG pH 7.265 L Oxyhemoglobin Sodium Potassium Chloride Carbon Dioxide BUN Creatinine Glucose POC Glucose 162 H Hemoglobin A1c Lactic Acid 6.30 H* Calcium Phosphorus Magnesium Total Bilirubin AST ALT Alkaline Phosphatase Ammonia Total Creatine Kinase CK-MB (CK-2) CK-MB (CK-2) Rel Index Troponin T Total Protein Albumin Salicylates Acetaminophen Hepatitis C Antibody 04/21/22 04/21/22 04/21/22 21:12 21:32 22:43 RBC Hgb Hct MCV MCHC RDW Plt Count Lymph % (Auto) Mobile % (Auto) Lymph # (Auto) Seg Neutrophils % Seg Neuts % (Manual) Lymphocytes % (Manual) Lymphocytes # (Manual) PT INR APTT Heparin Anti-Xa Level ABG pH ABG pO2 ABG HCO3 ABG O2 Saturation ABG Base Excess ABG Hemoglobin VBG pH Oxyhemoglobin Sodium 151 H Potassium 3.5 L D Chloride 116.6 H Carbon Dioxide 13 L BUN Creatinine 0.6 L Glucose 154 H POC Glucose 134 H 141 H Hemoglobin A1c Lactic Acid Calcium 7.7 L D Phosphorus 1.80 L Magnesium Total Bilirubin AST ALT Alkaline Phosphatase Ammonia Total Creatine Kinase CK-MB (CK-2) CK-MB (CK-2) Rel Index Troponin T Total Protein Albumin Salicylates Acetaminophen Hepatitis C Antibody 04/21/22 04/22/22 04/22/22 23:43 00:47 01:39 RBC Hgb Hct MCV MCHC RDW Plt Count Lymph % (Auto) Mobile % (Auto) Lymph # (Auto) Seg Neutrophils % Seg Neuts % (Manual) Lymphocytes % (Manual) Lymphocytes # (Manual) PT INR APTT Heparin Anti-Xa Level ABG pH ABG pO2 ABG HCO3 ABG O2 Saturation ABG Base Excess ABG Hemoglobin VBG pH Oxyhemoglobin Sodium Potassium Chloride Carbon Dioxide BUN Creatinine Glucose POC Glucose 147 H 151 H 156 H Hemoglobin A1c Lactic Acid Calcium Phosphorus Magnesium Total Bilirubin AST ALT Alkaline Phosphatase Ammonia Total Creatine Kinase CK-MB (CK-2) CK-MB (CK-2) Rel Index Troponin T Total Protein Albumin Salicylates Acetaminophen Hepatitis C Antibody 04/22/22 04/22/22 04/22/22 02:29 03:40 03:40 RBC Hgb Hct MCV MCHC RDW Plt Count Lymph % (Auto) Mobile % (Auto) Lymph # (Auto) Seg Neutrophils % Seg Neuts % (Manual) Lymphocytes % (Manual) Lymphocytes # (Manual) PT INR APTT Heparin Anti-Xa Level ABG pH ABG pO2 ABG HCO3 ABG O2 Saturation ABG Base Excess ABG Hemoglobin VBG pH Oxyhemoglobin Sodium 149 H Potassium Chloride 117.0 H Carbon Dioxide 15 L BUN 23 H Creatinine 0.6 L Glucose POC Glucose 124 H Hemoglobin A1c Lactic Acid 8.50 H* Calcium 8.1 L Phosphorus Magnesium Total Bilirubin AST ALT Alkaline Phosphatase Ammonia Total Creatine Kinase CK-MB (CK-2) CK-MB (CK-2) Rel Index Troponin T Total Protein Albumin Salicylates Acetaminophen Hepatitis C Antibody 04/22/22 04/22/22 04/22/22 04:32 05:30 06:00 RBC Hgb Hct MCV MCHC RDW Plt Count Lymph % (Auto) Mobile % (Auto) Lymph # (Auto) Seg Neutrophils % Seg Neuts % (Manual) Lymphocytes % (Manual) Lymphocytes # (Manual) PT INR APTT Heparin Anti-Xa Level ABG pH ABG pO2 ABG HCO3 ABG O2 Saturation ABG Base Excess ABG Hemoglobin VBG pH Oxyhemoglobin Sodium 152 H Potassium Chloride 118.1 H Carbon Dioxide 13 L BUN 24 H Creatinine 0.6 L Glucose POC Glucose 165 H 109 H Hemoglobin A1c Lactic Acid Calcium Phosphorus Magnesium Total Bilirubin AST ALT Alkaline Phosphatase Ammonia Total Creatine Kinase CK-MB (CK-2) CK-MB (CK-2) Rel Index Troponin T Total Protein Albumin Salicylates Acetaminophen Hepatitis C Antibody 04/22/22 04/22/22 04/22/22 06:00 06:30 07:35 RBC Hgb Hct MCV MCHC RDW Plt Count Lymph % (Auto) Mobile % (Auto) Lymph # (Auto) Seg Neutrophils % Seg Neuts % (Manual) Lymphocytes % (Manual) Lymphocytes # (Manual) PT INR APTT Heparin Anti-Xa Level ABG pH ABG pO2 ABG HCO3 ABG O2 Saturation ABG Base Excess ABG Hemoglobin VBG pH Oxyhemoglobin Sodium Potassium Chloride Carbon Dioxide BUN Creatinine Glucose POC Glucose 109 H 126 H Hemoglobin A1c Lactic Acid 9.80 H* Calcium Phosphorus Magnesium Total Bilirubin AST ALT Alkaline Phosphatase Ammonia Total Creatine Kinase CK-MB (CK-2) CK-MB (CK-2) Rel Index Troponin T Total Protein Albumin Salicylates Acetaminophen Hepatitis C Antibody 04/22/22 04/22/22 04/22/22 08:35 09:34 09:34 RBC Hgb Hct MCV MCHC RDW Plt Count Lymph % (Auto) Mobile % (Auto) Lymph # (Auto) Seg Neutrophils % Seg Neuts % (Manual) Lymphocytes % (Manual) Lymphocytes # (Manual) PT INR APTT Heparin Anti-Xa Level ABG pH ABG pO2 ABG HCO3 ABG O2 Saturation ABG Base Excess ABG Hemoglobin VBG pH Oxyhemoglobin Sodium 151 H Potassium Chloride 117.6 H Carbon Dioxide 13 L BUN 25 H Creatinine 0.6 L Glucose 109 H POC Glucose 106 H Hemoglobin A1c Lactic Acid 10.90 H* Calcium Phosphorus Magnesium Total Bilirubin AST ALT Alkaline Phosphatase Ammonia Total Creatine Kinase CK-MB (CK-2) CK-MB (CK-2) Rel Index Troponin T Total Protein Albumin Salicylates Acetaminophen Hepatitis C Antibody 04/22/22 04/22/22 04/22/22 09:34 11:22 12:25 RBC 3.53 L Hgb 11.2 L Hct 35.0 L MCV 99 H MCHC RDW 18.2 H Plt Count 97 L Lymph % (Auto) Mobile % (Auto) Lymph # (Auto) Seg Neutrophils % Seg Neuts % (Manual) 82.0 H Lymphocytes % (Manual) 6.0 L Lymphocytes # (Manual) 0.3 L PT INR APTT Heparin Anti-Xa Level ABG pH 7.190 L* ABG pO2 20.2 L* ABG HCO3 13.7 L ABG O2 Saturation 18.5 L ABG Base Excess -13.5 L ABG Hemoglobin 11.2 L VBG pH Oxyhemoglobin 18.2 L Sodium Potassium Chloride Carbon Dioxide BUN Creatinine Glucose POC Glucose Hemoglobin A1c 15.4 H Lactic Acid Calcium Phosphorus Magnesium Total Bilirubin AST ALT Alkaline Phosphatase Ammonia Total Creatine Kinase CK-MB (CK-2) CK-MB (CK-2) Rel Index Troponin T Total Protein Albumin Salicylates Acetaminophen Hepatitis C Antibody 04/22/22 04/22/22 04/22/22 12:36 13:14 13:44 RBC Hgb Hct MCV MCHC RDW Plt Count Lymph % (Auto) Mobile % (Auto) Lymph # (Auto) Seg Neutrophils % Seg Neuts % (Manual) Lymphocytes % (Manual) Lymphocytes # (Manual) PT INR APTT Heparin Anti-Xa Level ABG pH ABG pO2 ABG HCO3 ABG O2 Saturation ABG Base Excess ABG Hemoglobin VBG pH Oxyhemoglobin Sodium Potassium Chloride Carbon Dioxide BUN Creatinine Glucose POC Glucose 111 H 109 H Hemoglobin A1c Lactic Acid 9.10 H* Calcium Phosphorus Magnesium Total Bilirubin AST ALT Alkaline Phosphatase Ammonia Total Creatine Kinase CK-MB (CK-2) CK-MB (CK-2) Rel Index Troponin T Total Protein Albumin Salicylates Acetaminophen Hepatitis C Antibody 04/22/22 04/22/22 04/22/22 15:29 15:29 16:22 RBC Hgb Hct MCV MCHC RDW Plt Count Lymph % (Auto) Mobile % (Auto) Lymph # (Auto) Seg Neutrophils % Seg Neuts % (Manual) Lymphocytes % (Manual) Lymphocytes # (Manual) PT INR APTT Heparin Anti-Xa Level ABG pH ABG pO2 ABG HCO3 ABG O2 Saturation ABG Base Excess ABG Hemoglobin VBG pH Oxyhemoglobin Sodium 147 H Potassium 5.6 H D Chloride 117.1 H Carbon Dioxide 11 L BUN 26 H Creatinine 0.5 L Glucose 109 H POC Glucose 141 H Hemoglobin A1c Lactic Acid 6.50 H* Calcium 8.2 L Phosphorus Magnesium Total Bilirubin AST ALT Alkaline Phosphatase Ammonia Total Creatine Kinase 599 H CK-MB (CK-2) 30.3 H CK-MB (CK-2) Rel Index 5.0 H Troponin T 0.250 H* D Total Protein Albumin Salicylates Acetaminophen Hepatitis C Antibody 04/22/22 04/22/22 04/22/22 17:16 18:20 18:37 RBC Hgb Hct MCV MCHC RDW Plt Count Lymph % (Auto) Mobile % (Auto) Lymph # (Auto) Seg Neutrophils % Seg Neuts % (Manual) Lymphocytes % (Manual) Lymphocytes # (Manual) PT INR APTT Heparin Anti-Xa Level ABG pH 6.971 L* ABG pO2 101.3 H ABG HCO3 14.8 L ABG O2 Saturation 92.3 L ABG Base Excess -16.9 L ABG Hemoglobin 10.6 L VBG pH Oxyhemoglobin 90.5 L Sodium Potassium Chloride Carbon Dioxide BUN Creatinine Glucose POC Glucose 108 H 109 H Hemoglobin A1c Lactic Acid Calcium Phosphorus Magnesium Total Bilirubin AST ALT Alkaline Phosphatase Ammonia Total Creatine Kinase CK-MB (CK-2) CK-MB (CK-2) Rel Index Troponin T Total Protein Albumin Salicylates Acetaminophen Hepatitis C Antibody 04/22/22 04/22/22 04/22/22 19:58 19:58 19:58 RBC 3.51 L Hgb 11.0 L Hct 35.1 L MCV 100 H MCHC 31 L RDW 19.3 H Plt Count 103 L Lymph % (Auto) Mobile % (Auto) Lymph # (Auto) Seg Neutrophils % Seg Neuts % (Manual) Lymphocytes % (Manual) Lymphocytes # (Manual) PT INR APTT Heparin Anti-Xa Level ABG pH ABG pO2 ABG HCO3 ABG O2 Saturation ABG Base Excess ABG Hemoglobin VBG pH Oxyhemoglobin Sodium Potassium 5.3 H Chloride Carbon Dioxide BUN Creatinine Glucose POC Glucose Hemoglobin A1c Lactic Acid 8.70 H* Calcium Phosphorus Magnesium Total Bilirubin AST ALT Alkaline Phosphatase Ammonia Total Creatine Kinase CK-MB (CK-2) CK-MB (CK-2) Rel Index Troponin T Total Protein Albumin Salicylates Acetaminophen Hepatitis C Antibody 04/22/22 04/22/22 04/22/22 19:58 20:06 21:08 RBC Hgb Hct MCV MCHC RDW Plt Count Lymph % (Auto) Mobile % (Auto) Lymph # (Auto) Seg Neutrophils % Seg Neuts % (Manual) Lymphocytes % (Manual) Lymphocytes # (Manual) PT 38.0 H INR 3.29 H APTT 236.4 H* Heparin Anti-Xa Level ABG pH ABG pO2 ABG HCO3 ABG O2 Saturation ABG Base Excess ABG Hemoglobin VBG pH Oxyhemoglobin Sodium Potassium Chloride Carbon Dioxide BUN Creatinine Glucose POC Glucose 121 H 108 H Hemoglobin A1c Lactic Acid Calcium Phosphorus Magnesium Total Bilirubin AST ALT Alkaline Phosphatase Ammonia Total Creatine Kinase CK-MB (CK-2) CK-MB (CK-2) Rel Index Troponin T Total Protein Albumin Salicylates Acetaminophen Hepatitis C Antibody 04/22/22 04/22/22 04/22/22 21:45 21:45 21:45 RBC Hgb Hct MCV MCHC RDW Plt Count Lymph % (Auto) Mobile % (Auto) Lymph # (Auto) Seg Neutrophils % Seg Neuts % (Manual) Lymphocytes % (Manual) Lymphocytes # (Manual) PT INR APTT Heparin Anti-Xa Level 0.13 L ABG pH ABG pO2 ABG HCO3 ABG O2 Saturation ABG Base Excess ABG Hemoglobin VBG pH Oxyhemoglobin Sodium 152 H Potassium 5.6 H Chloride 116.7 H Carbon Dioxide 18 L D BUN 26 H Creatinine Glucose 143 H POC Glucose Hemoglobin A1c Lactic Acid 8.20 H* Calcium 8.2 L Phosphorus 8.50 H D Magnesium 2.40 H Total Bilirubin 1.50 H AST 8499 H ALT 2861 H Alkaline Phosphatase 144 H Ammonia Total Creatine Kinase CK-MB (CK-2) CK-MB (CK-2) Rel Index Troponin T Total Protein 4.3 L D Albumin 2.6 L Salicylates Acetaminophen Hepatitis C Antibody 04/22/22 04/22/22 04/22/22 22:19 23:09 23:11 RBC Hgb Hct MCV MCHC RDW Plt Count Lymph % (Auto) Mobile % (Auto) Lymph # (Auto) Seg Neutrophils % Seg Neuts % (Manual) Lymphocytes % (Manual) Lymphocytes # (Manual) PT INR APTT Heparin Anti-Xa Level ABG pH ABG pO2 ABG HCO3 ABG O2 Saturation ABG Base Excess ABG Hemoglobin VBG pH Oxyhemoglobin Sodium Potassium Chloride Carbon Dioxide BUN Creatinine Glucose POC Glucose 118 H 23 L 127 H Hemoglobin A1c Lactic Acid Calcium Phosphorus Magnesium Total Bilirubin AST ALT Alkaline Phosphatase Ammonia Total Creatine Kinase CK-MB (CK-2) CK-MB (CK-2) Rel Index Troponin T Total Protein Albumin Salicylates Acetaminophen Hepatitis C Antibody 04/23/22 04/23/22 04/23/22 00:00 00:14 01:10 RBC Hgb Hct MCV MCHC RDW Plt Count Lymph % (Auto) Mobile % (Auto) Lymph # (Auto) Seg Neutrophils % Seg Neuts % (Manual) Lymphocytes % (Manual) Lymphocytes # (Manual) PT INR APTT Heparin Anti-Xa Level ABG pH ABG pO2 ABG HCO3 ABG O2 Saturation ABG Base Excess ABG Hemoglobin VBG pH Oxyhemoglobin Sodium Potassium Chloride Carbon Dioxide BUN Creatinine Glucose POC Glucose 119 H 117 H Hemoglobin A1c Lactic Acid Calcium Phosphorus Magnesium Total Bilirubin AST ALT Alkaline Phosphatase Ammonia Total Creatine Kinase 1326 H CK-MB (CK-2) 90.0 H CK-MB (CK-2) Rel Index 6.7 H Troponin T 1.560 H* D Total Protein Albumin Salicylates Acetaminophen Hepatitis C Antibody 04/23/22 04/23/22 04/23/22 03:38 04:00 04:05 RBC Hgb Hct MCV MCHC RDW Plt Count Lymph % (Auto) Mobile % (Auto) Lymph # (Auto) Seg Neutrophils % Seg Neuts % (Manual) Lymphocytes % (Manual) Lymphocytes # (Manual) PT INR APTT Heparin Anti-Xa Level ABG pH 7.143 L* ABG pO2 68.9 L ABG HCO3 13.8 L ABG O2 Saturation 88.0 L ABG Base Excess -14.3 L ABG Hemoglobin 9.6 L VBG pH Oxyhemoglobin 86.4 L Sodium 150 H Potassium 5.9 H Chloride 116.7 H Carbon Dioxide 14 L BUN 29 H Creatinine Glucose 117 H POC Glucose 112 H Hemoglobin A1c Lactic Acid Calcium 7.6 L Phosphorus 8.60 H Magnesium Total Bilirubin AST ALT Alkaline Phosphatase Ammonia Total Creatine Kinase CK-MB (CK-2) CK-MB (CK-2) Rel Index Troponin T Total Protein Albumin Salicylates Acetaminophen Hepatitis C Antibody 04/23/22 04/23/22 04/23/22 04:30 09:13 10:46 RBC Hgb Hct MCV MCHC RDW Plt Count Lymph % (Auto) Mobile % (Auto) Lymph # (Auto) Seg Neutrophils % Seg Neuts % (Manual) Lymphocytes % (Manual) Lymphocytes # (Manual) PT INR APTT Heparin Anti-Xa Level 0.17 L ABG pH ABG pO2 ABG HCO3 ABG O2 Saturation ABG Base Excess ABG Hemoglobin VBG pH Oxyhemoglobin Sodium Potassium Chloride Carbon Dioxide BUN Creatinine Glucose POC Glucose 107 H Hemoglobin A1c Lactic Acid 9.60 H* Calcium Phosphorus Magnesium Total Bilirubin AST ALT Alkaline Phosphatase Ammonia Total Creatine Kinase CK-MB (CK-2) CK-MB (CK-2) Rel Index Troponin T Total Protein Albumin Salicylates Acetaminophen Hepatitis C Antibody 04/23/22 04/23/22 04/23/22 10:46 10:46 11:28 RBC Hgb Hct MCV MCHC RDW Plt Count Lymph % (Auto) Mobile % (Auto) Lymph # (Auto) Seg Neutrophils % Seg Neuts % (Manual) Lymphocytes % (Manual) Lymphocytes # (Manual) PT INR APTT Heparin Anti-Xa Level ABG pH ABG pO2 ABG HCO3 ABG O2 Saturation ABG Base Excess ABG Hemoglobin VBG pH Oxyhemoglobin Sodium 154 H Potassium 6.6 H* Chloride 119.2 H Carbon Dioxide 14 L BUN 30 H Creatinine 1.6 H Glucose 110 H POC Glucose Hemoglobin A1c Lactic Acid 9.80 H* Calcium 7.3 L Phosphorus Magnesium Total Bilirubin AST ALT Alkaline Phosphatase Ammonia Total Creatine Kinase 1942 H CK-MB (CK-2) 106.7 H CK-MB (CK-2) Rel Index 5.4 H Troponin T 2.840 H* D Total Protein Albumin Salicylates Acetaminophen Hepatitis C Antibody 04/23/22 04/23/22 04/23/22 11:30 12:29 12:59 RBC 3.11 L Hgb 9.7 L Hct 31.3 L MCV 100 H MCHC 31 L RDW 19.0 H Plt Count 65 L Lymph % (Auto) Mobile % (Auto) Lymph # (Auto) Seg Neutrophils % Seg Neuts % (Manual) Lymphocytes % (Manual) Lymphocytes # (Manual) PT INR APTT Heparin Anti-Xa Level ABG pH ABG pO2 ABG HCO3 ABG O2 Saturation ABG Base Excess ABG Hemoglobin VBG pH Oxyhemoglobin Sodium Potassium Chloride Carbon Dioxide BUN Creatinine Glucose POC Glucose 61 L 145 H Hemoglobin A1c Lactic Acid Calcium Phosphorus Magnesium Total Bilirubin AST ALT Alkaline Phosphatase Ammonia Total Creatine Kinase CK-MB (CK-2) CK-MB (CK-2) Rel Index Troponin T Total Protein Albumin Salicylates Acetaminophen Hepatitis C Antibody Assessment and Plan 66 yo male with bivalve icd, heart failure, atrial fibrillation, dm, who presented initially with encephalopathy with concern during hospital course initially for SIRS but then yesterday suffered multiple cardiac arrests with noted severe encephalopathy. 1. Hypoxic / Anoxic Brain Encephalopathy - severe concern, based on neurologic exam; concern is raised for futile care; nchct/eeg pending. 2. Cardiac Arrests - workup per cardiology; underlying bivalve icd / heart failure. 3. Status Epilepticus - eeg results pending. 4. Acute Metabolic Encephalopathy - in the setting of multiorgan failure, inclu ding renal failure. 5. Concern for futile care is raised, based on the current exam. Minesh Mayen MD Neurology [id number]
[2022-04-23] MEDS: metroNIDAZOLE/NS 500 MG/100 ML 500 MG/100 ML BAG IV SCH (14:58)
[2022-04-23] MEDS: SODIUM BICARBONATE 150 MEQ in DEXTROSE 5% IN WATER 1,000 ML IV SCH (14:58)
[2022-04-23] MEDS: CEFEPIME/NS 2 GM/100 ML 2 GM/100 ML BAG IV SCH (14:58)
[2022-04-23] MEDS: FAMOTIDINE 20 MG/2 ML INJ IV SCH ×2 (14:59→21:24)
[2022-04-23] MEDS: SENNOSIDES/DOCUSATE SODIUM 8.6/50 MG TAB FEEDTUBE SCH ×2 (15:35→21:28)
[2022-04-23] MEDS: ASPIRIN 300 MG RECT SUPP PR SCH (15:35)
[2022-04-23] MEDS: INSULIN REGULAR, HUMAN 100 UNITS/1 ML SUB-Q SCH (15:36)
--- NOTE | 2022-04-23 15:37 | Event Note ---
Date: 04/23/22 ELIO found two next of kin, a sister and a daughter. Was able to speak with sister who has medical knowledge/background in critical care. She expressed understanding of the severity of the situation and will speak with the daughter to update her. She is interested in pursuing AND and possibly comfort care if patient does not pass in the next 36-48 hours. Given the severity of his clinical state, I agree with her requests and judgement. She (sister) will reach back out to ELIO to discuss the next steps.
--- NOTE | 2022-04-23 15:43 | Progress Note ---
Assessment and Plan 66 y/o male admitted with DKA, now with multisystem organ failure post cardiac arrest x3 Overall prognosis is extremely poor. Likely anoxic brain injuy, renal failure in need of HD, cardiovascular collapse and respiratory failure. Will continue supportive measures. Family will likely make patient DNR and hopefully pursue comfort measures. Treating Hyperkalemia. Fluids. Wean Pressors as tolerated. CCT 31 minutes. Subjective Date of service: 04/23/22 Interval history: Unfortunately patient coded on yesterday, multiple times. Intubated, not on sedation and is on 3 vasopressors. No urine output Objective - Constitutional Vitals: Vital Signs - 12hr 04/23/22 04/23/22 04/23/22 03:44 03:46 04:00 Temperature 98.2 F Pulse Rate 102 H 112 H Respiratory 24 24 Rate Blood Pressure 45/27 45/27 O2 Sat by Pulse 89 75 L Oximetry 04/23/22 04/23/22 04/23/22 04:16 04:30 04:44 Temperature Pulse Rate 114 H 109 H 111 H Respiratory 20 25 H Rate Blood Pressure 104/77 104/77 88/55 O2 Sat by Pulse 94 98 93 Oximetry 04/23/22 04/23/22 04/23/22 04:46 05:00 05:16 Temperature Pulse Rate 126 H 129 H 118 H Respiratory 23 23 24 Rate Blood Pressure 104/77 99/77 100/76 O2 Sat by Pulse 94 94 Oximetry 04/23/22 04/23/22 04/23/22 05:30 05:46 06:00 Temperature Pulse Rate 116 H 120 H 106 H Respiratory 25 H 25 H 24 Rate Blood Pressure 100/76 96/49 96/49 O2 Sat by Pulse 98 Oximetry 04/23/22 04/23/22 04/23/22 06:16 06:30 06:46 Temperature Pulse Rate 108 H 100 H 105 H Respiratory 26 H 17 21 Rate Blood Pressure 117/62 117/62 66/42 O2 Sat by Pulse 92 96 Oximetry 04/23/22 04/23/22 04/23/22 07:00 07:16 07:27 Temperature 98.2 F Pulse Rate 89 91 H Respiratory 20 22 Rate Blood Pressure 66/42 77/56 O2 Sat by Pulse 98 98 Oximetry 04/23/22 04/23/22 04/23/22 07:30 07:46 08:00 Temperature 98.2 F Pulse Rate 101 H 91 H 91 H Respiratory 24 21 21 Rate Blood Pressure 77/56 77/56 125/77 O2 Sat by Pulse 95 95 Oximetry 04/23/22 04/23/22 04/23/22 08:16 08:30 08:46 Temperature Pulse Rate 91 H 89 89 Respiratory 24 20 24 Rate Blood Pressure 125/77 125/77 88/45 O2 Sat by Pulse 92 Oximetry 04/23/22 04/23/22 04/23/22 09:00 09:16 09:30 Temperature Pulse Rate 88 87 87 Respiratory 22 14 24 Rate Blood Pressure 66/46 66/46 66/46 O2 Sat by Pulse 94 Oximetry 04/23/22 04/23/22 04/23/22 09:46 10:00 10:16 Temperature Pulse Rate 85 90 88 Respiratory 24 14 26 H Rate Blood Pressure 53/18 63/24 63/24 O2 Sat by Pulse 91 92 93 Oximetry 04/23/22 04/23/22 04/23/22 10:30 10:46 11:00 Temperature Pulse Rate 88 87 86 Respiratory 25 H 24 24 Rate Blood Pressure 63/24 63/24 111/54 O2 Sat by Pulse 93 Oximetry 04/23/22 04/23/22 04/23/22 11:16 11:30 11:45 Temperature 98.8 F Pulse Rate 87 88 Respiratory 24 24 Rate Blood Pressure 111/54 103/62 O2 Sat by Pulse 89 Oximetry 04/23/22 04/23/22 04/23/22 11:46 12:00 12:16 Temperature 98.2 F Pulse Rate 86 78 86 Respiratory 25 H 25 H 24 Rate Blood Pressure 103/62 111/67 111/67 O2 Sat by Pulse 63 L Oximetry 04/23/22 04/23/22 04/23/22 12:30 12:46 13:00 Temperature Pulse Rate 85 93 H 88 Respiratory 25 H 24 26 H Rate Blood Pressure 96/64 96/64 96/64 O2 Sat by Pulse 91 Oximetry 04/23/22 04/23/22 04/23/22 13:16 13:30 13:46 Temperature Pulse Rate 87 74 108 H Respiratory 25 H 24 23 Rate Blood Pressure 117/85 117/85 89/51 O2 Sat by Pulse 97 100 Oximetry 04/23/22 04/23/22 04/23/22 14:00 14:16 14:30 Temperature Pulse Rate 80 84 85 Respiratory 18 24 24 Rate Blood Pressure 117/85 151/108 151/108 O2 Sat by Pulse Oximetry 04/23/22 04/23/22 04/23/22 14:46 15:00 15:16 Temperature Pulse Rate 76 79 76 Respiratory 24 24 24 Rate Blood Pressure 103/60 98/59 98/59 O2 Sat by Pulse 93 93 91 Oximetry - Labs CBC & Chem 7: 04/23/22 11:30 04/23/22 10:46 Labs: Abnormal lab results 04/22/22 04/22/22 04/22/22 Range/Units 09:34 11:22 15:29 RBC (3.65-5.03) M/mm3 Hgb (11.8-15.2) gm/dl Hct (35.5-45.6) % MCV (84-94) fl MCHC (32-34) % RDW (13.2-15.2) % Plt Count (140-440) K/mm3 Seg Neuts % (Manual) 82.0 H (40.0-70.0) % Lymphocytes % (Manual) 6.0 L (13.4-35.0) % Lymphocytes # (Manual) 0.3 L (1.2-5.4) K/mm3 PT (12.2-14.9) Sec. INR (0.87-1.13) APTT (24.2-36.6) Sec. Heparin Anti-Xa Level (0.3-0.7) U.I./ml ABG pH (7.350-7.450) pH Units ABG pO2 (80.0-90.0) mm Hg ABG HCO3 (20.0-26.0) mmol/L ABG O2 Saturation (95.0-99.0) % ABG Base Excess (-2.0-3.0) mmol/L ABG Hemoglobin (14.0-18.0) gm/dl Oxyhemoglobin (95.0-99.0) % Sodium (137-145) mmol/L Potassium (3.6-5.0) mmol/L Chloride (98-107) mmol/L Carbon Dioxide (22-30) mmol/L BUN (9-20) mg/dL Creatinine (0.8-1.3) mg/dL Glucose (75-100) mg/dL POC Glucose (70-105) mg/dL Hemoglobin A1c 15.4 H (4-6) % Lactic Acid 6.50 H* (0.7-2.0) mmol/L Calcium (8.4-10.2) mg/dL Phosphorus (2.5-4.5) mg/dL Magnesium (1.7-2.3) mg/dL Total Bilirubin (0.1-1.2) mg/dL AST (5-40) units/L ALT (7-56) units/L Alkaline Phosphatase (35-129) units/L Total Creatine Kinase (55-170) units/L CK-MB (CK-2) (0.0-4.0) ng/mL CK-MB (CK-2) Rel Index (0-4) Troponin T (0.00-0.029) ng/mL Total Protein (6.3-8.2) g/dL Albumin (3.9-5) g/dL 04/22/22 04/22/22 04/22/22 Range/Units 15:29 16:22 17:16 RBC (3.65-5.03) M/mm3 Hgb (11.8-15.2) gm/dl Hct (35.5-45.6) % MCV (84-94) fl MCHC (32-34) % RDW (13.2-15.2) % Plt Count (140-440) K/mm3 Seg Neuts % (Manual) (40.0-70.0) % Lymphocytes % (Manual) (13.4-35.0) % Lymphocytes # (Manual) (1.2-5.4) K/mm3 PT (12.2-14.9) Sec. INR (0.87-1.13) APTT (24.2-36.6) Sec. Heparin Anti-Xa Level (0.3-0.7) U.I./ml ABG pH (7.350-7.450) pH Units ABG pO2 (80.0-90.0) mm Hg ABG HCO3 (20.0-26.0) mmol/L ABG O2 Saturation (95.0-99.0) % ABG Base Excess (-2.0-3.0) mmol/L ABG Hemoglobin (14.0-18.0) gm/dl Oxyhemoglobin (95.0-99.0) % Sodium 147 H (137-145) mmol/L Potassium 5.6 H D (3.6-5.0) mmol/L Chloride 117.1 H (98-107) mmol/L Carbon Dioxide 11 L (22-30) mmol/L BUN 26 H (9-20) mg/dL Creatinine 0.5 L (0.8-1.3) mg/dL Glucose 109 H (75-100) mg/dL POC Glucose 141 H 108 H (70-105) mg/dL Hemoglobin A1c (4-6) % Lactic Acid (0.7-2.0) mmol/L Calcium 8.2 L (8.4-10.2) mg/dL Phosphorus (2.5-4.5) mg/dL Magnesium (1.7-2.3) mg/dL Total Bilirubin (0.1-1.2) mg/dL AST (5-40) units/L ALT (7-56) units/L Alkaline Phosphatase (35-129) units/L Total Creatine Kinase 599 H (55-170) units/L CK-MB (CK-2) 30.3 H (0.0-4.0) ng/mL CK-MB (CK-2) Rel Index 5.0 H (0-4) Troponin T 0.250 H* D (0.00-0.029) ng/mL Total Protein (6.3-8.2) g/dL Albumin (3.9-5) g/dL 04/22/22 04/22/22 04/22/22 Range/Units 18:20 18:37 19:58 RBC (3.65-5.03) M/mm3 Hgb (11.8-15.2) gm/dl Hct (35.5-45.6) % MCV (84-94) fl MCHC (32-34) % RDW (13.2-15.2) % Plt Count (140-440) K/mm3 Seg Neuts % (Manual) (40.0-70.0) % Lymphocytes % (Manual) (13.4-35.0) % Lymphocytes # (Manual) (1.2-5.4) K/mm3 PT (12.2-14.9) Sec. INR (0.87-1.13) APTT (24.2-36.6) Sec. Heparin Anti-Xa Level (0.3-0.7) U.I./ml ABG pH 6.971 L* (7.350-7.450) pH Units ABG pO2 101.3 H (80.0-90.0) mm Hg ABG HCO3 14.8 L (20.0-26.0) mmol/L ABG O2 Saturation 92.3 L (95.0-99.0) % ABG Base Excess -16.9 L (-2.0-3.0) mmol/L ABG Hemoglobin 10.6 L (14.0-18.0) gm/dl Oxyhemoglobin 90.5 L (95.0-99.0) % Sodium (137-145) mmol/L Potassium (3.6-5.0) mmol/L Chloride (98-107) mmol/L Carbon Dioxide (22-30) mmol/L BUN (9-20) mg/dL Creatinine (0.8-1.3) mg/dL Glucose (75-100) mg/dL POC Glucose 109 H (70-105) mg/dL Hemoglobin A1c (4-6) % Lactic Acid 8.70 H* (0.7-2.0) mmol/L Calcium (8.4-10.2) mg/dL Phosphorus (2.5-4.5) mg/dL Magnesium (1.7-2.3) mg/dL Total Bilirubin (0.1-1.2) mg/dL AST (5-40) units/L ALT (7-56) units/L Alkaline Phosphatase (35-129) units/L Total Creatine Kinase (55-170) units/L CK-MB (CK-2) (0.0-4.0) ng/mL CK-MB (CK-2) Rel Index (0-4) Troponin T (0.00-0.029) ng/mL Total Protein (6.3-8.2) g/dL Albumin (3.9-5) g/dL 04/22/22 04/22/22 04/22/22 Range/Units 19:58 19:58 19:58 RBC 3.51 L (3.65-5.03) M/mm3 Hgb 11.0 L (11.8-15.2) gm/dl Hct 35.1 L (35.5-45.6) % MCV 100 H (84-94) fl MCHC 31 L (32-34) % RDW 19.3 H (13.2-15.2) % Plt Count 103 L (140-440) K/mm3 Seg Neuts % (Manual) (40.0-70.0) % Lymphocytes % (Manual) (13.4-35.0) % Lymphocytes # (Manual) (1.2-5.4) K/mm3 PT 38.0 H (12.2-14.9) Sec. INR 3.29 H (0.87-1.13) APTT 236.4 H* (24.2-36.6) Sec. Heparin Anti-Xa Level (0.3-0.7) U.I./ml ABG pH (7.350-7.450) pH Units ABG pO2 (80.0-90.0) mm Hg ABG HCO3 (20.0-26.0) mmol/L ABG O2 Saturation (95.0-99.0) % ABG Base Excess (-2.0-3.0) mmol/L ABG Hemoglobin (14.0-18.0) gm/dl Oxyhemoglobin (95.0-99.0) % Sodium (137-145) mmol/L Potassium 5.3 H (3.6-5.0) mmol/L Chloride (98-107) mmol/L Carbon Dioxide (22-30) mmol/L BUN (9-20) mg/dL Creatinine (0.8-1.3) mg/dL Glucose (75-100) mg/dL POC Glucose (70-105) mg/dL Hemoglobin A1c (4-6) % Lactic Acid (0.7-2.0) mmol/L Calcium (8.4-10.2) mg/dL Phosphorus (2.5-4.5) mg/dL Magnesium (1.7-2.3) mg/dL Total Bilirubin (0.1-1.2) mg/dL AST (5-40) units/L ALT (7-56) units/L Alkaline Phosphatase (35-129) units/L Total Creatine Kinase (55-170) units/L CK-MB (CK-2) (0.0-4.0) ng/mL CK-MB (CK-2) Rel Index (0-4) Troponin T (0.00-0.029) ng/mL Total Protein (6.3-8.2) g/dL Albumin (3.9-5) g/dL 04/22/22 04/22/22 04/22/22 Range/Units 20:06 21:08 21:45 RBC (3.65-5.03) M/mm3 Hgb (11.8-15.2) gm/dl Hct (35.5-45.6) % MCV (84-94) fl MCHC (32-34) % RDW (13.2-15.2) % Plt Count (140-440) K/mm3 Seg Neuts % (Manual) (40.0-70.0) % Lymphocytes % (Manual) (13.4-35.0) % Lymphocytes # (Manual) (1.2-5.4) K/mm3 PT (12.2-14.9) Sec. INR (0.87-1.13) APTT (24.2-36.6) Sec. Heparin Anti-Xa Level (0.3-0.7) U.I./ml ABG pH (7.350-7.450) pH Units ABG pO2 (80.0-90.0) mm Hg ABG HCO3 (20.0-26.0) mmol/L ABG O2 Saturation (95.0-99.0) % ABG Base Excess (-2.0-3.0) mmol/L ABG Hemoglobin (14.0-18.0) gm/dl Oxyhemoglobin (95.0-99.0) % Sodium 152 H (137-145) mmol/L Potassium 5.6 H (3.6-5.0) mmol/L Chloride 116.7 H (98-107) mmol/L Carbon Dioxide 18 L D (22-30) mmol/L BUN 26 H (9-20) mg/dL Creatinine (0.8-1.3) mg/dL Glucose 143 H (75-100) mg/dL POC Glucose 121 H 108 H (70-105) mg/dL Hemoglobin A1c (4-6) % Lactic Acid (0.7-2.0) mmol/L Calcium 8.2 L (8.4-10.2) mg/dL Phosphorus 8.50 H D (2.5-4.5) mg/dL Magnesium 2.40 H (1.7-2.3) mg/dL Total Bilirubin 1.50 H (0.1-1.2) mg/dL AST 8499 H (5-40) units/L ALT 2861 H (7-56) units/L Alkaline Phosphatase 144 H (35-129) units/L Total Creatine Kinase (55-170) units/L CK-MB (CK-2) (0.0-4.0) ng/mL CK-MB (CK-2) Rel Index (0-4) Troponin T (0.00-0.029) ng/mL Total Protein 4.3 L D (6.3-8.2) g/dL Albumin 2.6 L (3.9-5) g/dL 04/22/22 04/22/22 04/22/22 Range/Units 21:45 21:45 22:19 RBC (3.65-5.03) M/mm3 Hgb (11.8-15.2) gm/dl Hct (35.5-45.6) % MCV (84-94) fl MCHC (32-34) % RDW (13.2-15.2) % Plt Count (140-440) K/mm3 Seg Neuts % (Manual) (40.0-70.0) % Lymphocytes % (Manual) (13.4-35.0) % Lymphocytes # (Manual) (1.2-5.4) K/mm3 PT (12.2-14.9) Sec. INR (0.87-1.13) APTT (24.2-36.6) Sec. Heparin Anti-Xa Level 0.13 L (0.3-0.7) U.I./ml ABG pH (7.350-7.450) pH Units ABG pO2 (80.0-90.0) mm Hg ABG HCO3 (20.0-26.0) mmol/L ABG O2 Saturation (95.0-99.0) % ABG Base Excess (-2.0-3.0) mmol/L ABG Hemoglobin (14.0-18.0) gm/dl Oxyhemoglobin (95.0-99.0) % Sodium (137-145) mmol/L Potassium (3.6-5.0) mmol/L Chloride (98-107) mmol/L Carbon Dioxide (22-30) mmol/L BUN (9-20) mg/dL Creatinine (0.8-1.3) mg/dL Glucose (75-100) mg/dL POC Glucose 118 H (70-105) mg/dL Hemoglobin A1c (4-6) % Lactic Acid 8.20 H* (0.7-2.0) mmol/L Calcium (8.4-10.2) mg/dL Phosphorus (2.5-4.5) mg/dL Magnesium (1.7-2.3) mg/dL Total Bilirubin (0.1-1.2) mg/dL AST (5-40) units/L ALT (7-56) units/L Alkaline Phosphatase (35-129) units/L Total Creatine Kinase (55-170) units/L CK-MB (CK-2) (0.0-4.0) ng/mL CK-MB (CK-2) Rel Index (0-4) Troponin T (0.00-0.029) ng/mL Total Protein (6.3-8.2) g/dL Albumin (3.9-5) g/dL 04/22/22 04/22/22 04/23/22 Range/Units 23:09 23:11 00:00 RBC (3.65-5.03) M/mm3 Hgb (11.8-15.2) gm/dl Hct (35.5-45.6) % MCV (84-94) fl MCHC (32-34) % RDW (13.2-15.2) % Plt Count (140-440) K/mm3 Seg Neuts % (Manual) (40.0-70.0) % Lymphocytes % (Manual) (13.4-35.0) % Lymphocytes # (Manual) (1.2-5.4) K/mm3 PT (12.2-14.9) Sec. INR (0.87-1.13) APTT (24.2-36.6) Sec. Heparin Anti-Xa Level (0.3-0.7) U.I./ml ABG pH (7.350-7.450) pH Units ABG pO2 (80.0-90.0) mm Hg ABG HCO3 (20.0-26.0) mmol/L ABG O2 Saturation (95.0-99.0) % ABG Base Excess (-2.0-3.0) mmol/L ABG Hemoglobin (14.0-18.0) gm/dl Oxyhemoglobin (95.0-99.0) % Sodium (137-145) mmol/L Potassium (3.6-5.0) mmol/L Chloride (98-107) mmol/L Carbon Dioxide (22-30) mmol/L BUN (9-20) mg/dL Creatinine (0.8-1.3) mg/dL Glucose (75-100) mg/dL POC Glucose 23 L 127 H (70-105) mg/dL Hemoglobin A1c (4-6) % Lactic Acid (0.7-2.0) mmol/L Calcium (8.4-10.2) mg/dL Phosphorus (2.5-4.5) mg/dL Magnesium (1.7-2.3) mg/dL Total Bilirubin (0.1-1.2) mg/dL AST (5-40) units/L ALT (7-56) units/L Alkaline Phosphatase (35-129) units/L Total Creatine Kinase 1326 H (55-170) units/L CK-MB (CK-2) 90.0 H (0.0-4.0) ng/mL CK-MB (CK-2) Rel Index 6.7 H (0-4) Troponin T 1.560 H* D (0.00-0.029) ng/mL Total Protein (6.3-8.2) g/dL Albumin (3.9-5) g/dL 04/23/22 04/23/22 04/23/22 Range/Units 00:14 01:10 03:38 RBC (3.65-5.03) M/mm3 Hgb (11.8-15.2) gm/dl Hct (35.5-45.6) % MCV (84-94) fl MCHC (32-34) % RDW (13.2-15.2) % Plt Count (140-440) K/mm3 Seg Neuts % (Manual) (40.0-70.0) % Lymphocytes % (Manual) (13.4-35.0) % Lymphocytes # (Manual) (1.2-5.4) K/mm3 PT (12.2-14.9) Sec. INR (0.87-1.13) APTT (24.2-36.6) Sec. Heparin Anti-Xa Level (0.3-0.7) U.I./ml ABG pH 7.143 L* (7.350-7.450) pH Units ABG pO2 68.9 L (80.0-90.0) mm Hg ABG HCO3 13.8 L (20.0-26.0) mmol/L ABG O2 Saturation 88.0 L (95.0-99.0) % ABG Base Excess -14.3 L (-2.0-3.0) mmol/L ABG Hemoglobin 9.6 L (14.0-18.0) gm/dl Oxyhemoglobin 86.4 L (95.0-99.0) % Sodium (137-145) mmol/L Potassium (3.6-5.0) mmol/L Chloride (98-107) mmol/L Carbon Dioxide (22-30) mmol/L BUN (9-20) mg/dL Creatinine (0.8-1.3) mg/dL Glucose (75-100) mg/dL POC Glucose 119 H 117 H (70-105) mg/dL Hemoglobin A1c (4-6) % Lactic Acid (0.7-2.0) mmol/L Calcium (8.4-10.2) mg/dL Phosphorus (2.5-4.5) mg/dL Magnesium (1.7-2.3) mg/dL Total Bilirubin (0.1-1.2) mg/dL AST (5-40) units/L ALT (7-56) units/L Alkaline Phosphatase (35-129) units/L Total Creatine Kinase (55-170) units/L CK-MB (CK-2) (0.0-4.0) ng/mL CK-MB (CK-2) Rel Index (0-4) Troponin T (0.00-0.029) ng/mL Total Protein (6.3-8.2) g/dL Albumin (3.9-5) g/dL 04/23/22 04/23/22 04/23/22 Range/Units 04:00 04:05 04:30 RBC (3.65-5.03) M/mm3 Hgb (11.8-15.2) gm/dl Hct (35.5-45.6) % MCV (84-94) fl MCHC (32-34) % RDW (13.2-15.2) % Plt Count (140-440) K/mm3 Seg Neuts % (Manual) (40.0-70.0) % Lymphocytes % (Manual) (13.4-35.0) % Lymphocytes # (Manual) (1.2-5.4) K/mm3 PT (12.2-14.9) Sec. INR (0.87-1.13) APTT (24.2-36.6) Sec. Heparin Anti-Xa Level 0.17 L (0.3-0.7) U.I./ml ABG pH (7.350-7.450) pH Units ABG pO2 (80.0-90.0) mm Hg ABG HCO3 (20.0-26.0) mmol/L ABG O2 Saturation (95.0-99.0) % ABG Base Excess (-2.0-3.0) mmol/L ABG Hemoglobin (14.0-18.0) gm/dl Oxyhemoglobin (95.0-99.0) % Sodium 150 H (137-145) mmol/L Potassium 5.9 H (3.6-5.0) mmol/L Chloride 116.7 H (98-107) mmol/L Carbon Dioxide 14 L (22-30) mmol/L BUN 29 H (9-20) mg/dL Creatinine (0.8-1.3) mg/dL Glucose 117 H (75-100) mg/dL POC Glucose 112 H (70-105) mg/dL Hemoglobin A1c (4-6) % Lactic Acid (0.7-2.0) mmol/L Calcium 7.6 L (8.4-10.2) mg/dL Phosphorus 8.60 H (2.5-4.5) mg/dL Magnesium (1.7-2.3) mg/dL Total Bilirubin (0.1-1.2) mg/dL AST (5-40) units/L ALT (7-56) units/L Alkaline Phosphatase (35-129) units/L Total Creatine Kinase (55-170) units/L CK-MB (CK-2) (0.0-4.0) ng/mL CK-MB (CK-2) Rel Index (0-4) Troponin T (0.00-0.029) ng/mL Total Protein (6.3-8.2) g/dL Albumin (3.9-5) g/dL 04/23/22 04/23/22 04/23/22 Range/Units 09:13 10:46 10:46 RBC (3.65-5.03) M/mm3 Hgb (11.8-15.2) gm/dl Hct (35.5-45.6) % MCV (84-94) fl MCHC (32-34) % RDW (13.2-15.2) % Plt Count (140-440) K/mm3 Seg Neuts % (Manual) (40.0-70.0) % Lymphocytes % (Manual) (13.4-35.0) % Lymphocytes # (Manual) (1.2-5.4) K/mm3 PT (12.2-14.9) Sec. INR (0.87-1.13) APTT (24.2-36.6) Sec. Heparin Anti-Xa Level (0.3-0.7) U.I./ml ABG pH (7.350-7.450) pH Units ABG pO2 (80.0-90.0) mm Hg ABG HCO3 (20.0-26.0) mmol/L ABG O2 Saturation (95.0-99.0) % ABG Base Excess (-2.0-3.0) mmol/L ABG Hemoglobin (14.0-18.0) gm/dl Oxyhemoglobin (95.0-99.0) % Sodium 154 H (137-145) mmol/L Potassium 6.6 H* (3.6-5.0) mmol/L Chloride 119.2 H (98-107) mmol/L Carbon Dioxide 14 L (22-30) mmol/L BUN 30 H (9-20) mg/dL Creatinine 1.6 H (0.8-1.3) mg/dL Glucose 110 H (75-100) mg/dL POC Glucose 107 H (70-105) mg/dL Hemoglobin A1c (4-6) % Lactic Acid 9.60 H* (0.7-2.0) mmol/L Calcium 7.3 L (8.4-10.2) mg/dL Phosphorus (2.5-4.5) mg/dL Magnesium (1.7-2.3) mg/dL Total Bilirubin (0.1-1.2) mg/dL AST (5-40) units/L ALT (7-56) units/L Alkaline Phosphatase (35-129) units/L Total Creatine Kinase (55-170) units/L CK-MB (CK-2) (0.0-4.0) ng/mL CK-MB (CK-2) Rel Index (0-4) Troponin T (0.00-0.029) ng/mL Total Protein (6.3-8.2) g/dL Albumin (3.9-5) g/dL 04/23/22 04/23/22 04/23/22 Range/Units 10:46 11:28 11:30 RBC 3.11 L (3.65-5.03) M/mm3 Hgb 9.7 L (11.8-15.2) gm/dl Hct 31.3 L (35.5-45.6) % MCV 100 H (84-94) fl MCHC 31 L (32-34) % RDW 19.0 H (13.2-15.2) % Plt Count 65 L (140-440) K/mm3 Seg Neuts % (Manual) (40.0-70.0) % Lymphocytes % (Manual) (13.4-35.0) % Lymphocytes # (Manual) (1.2-5.4) K/mm3 PT (12.2-14.9) Sec. INR (0.87-1.13) APTT (24.2-36.6) Sec. Heparin Anti-Xa Level (0.3-0.7) U.I./ml ABG pH (7.350-7.450) pH Units ABG pO2 (80.0-90.0) mm Hg ABG HCO3 (20.0-26.0) mmol/L ABG O2 Saturation (95.0-99.0) % ABG Base Excess (-2.0-3.0) mmol/L ABG Hemoglobin (14.0-18.0) gm/dl Oxyhemoglobin (95.0-99.0) % Sodium (137-145) mmol/L Potassium (3.6-5.0) mmol/L Chloride (98-107) mmol/L Carbon Dioxide (22-30) mmol/L BUN (9-20) mg/dL Creatinine (0.8-1.3) mg/dL Glucose (75-100) mg/dL POC Glucose (70-105) mg/dL Hemoglobin A1c (4-6) % Lactic Acid 9.80 H* (0.7-2.0) mmol/L Calcium (8.4-10.2) mg/dL Phosphorus (2.5-4.5) mg/dL Magnesium (1.7-2.3) mg/dL Total Bilirubin (0.1-1.2) mg/dL AST (5-40) units/L ALT (7-56) units/L Alkaline Phosphatase (35-129) units/L Total Creatine Kinase 1942 H (55-170) units/L CK-MB (CK-2) 106.7 H (0.0-4.0) ng/mL CK-MB (CK-2) Rel Index 5.4 H (0-4) Troponin T 2.840 H* D (0.00-0.029) ng/mL Total Protein (6.3-8.2) g/dL Albumin (3.9-5) g/dL 04/23/22 04/23/22 Range/Units 12:29 12:59 RBC (3.65-5.03) M/mm3 Hgb (11.8-15.2) gm/dl Hct (35.5-45.6) % MCV (84-94) fl MCHC (32-34) % RDW (13.2-15.2) % Plt Count (140-440) K/mm3 Seg Neuts % (Manual) (40.0-70.0) % Lymphocytes % (Manual) (13.4-35.0) % Lymphocytes # (Manual) (1.2-5.4) K/mm3 PT (12.2-14.9) Sec. INR (0.87-1.13) APTT (24.2-36.6) Sec. Heparin Anti-Xa Level (0.3-0.7) U.I./ml ABG pH (7.350-7.450) pH Units ABG pO2 (80.0-90.0) mm Hg ABG HCO3 (20.0-26.0) mmol/L ABG O2 Saturation (95.0-99.0) % ABG Base Excess (-2.0-3.0) mmol/L ABG Hemoglobin (14.0-18.0) gm/dl Oxyhemoglobin (95.0-99.0) % Sodium (137-145) mmol/L Potassium (3.6-5.0) mmol/L Chloride (98-107) mmol/L Carbon Dioxide (22-30) mmol/L BUN (9-20) mg/dL Creatinine (0.8-1.3) mg/dL Glucose (75-100) mg/dL POC Glucose 61 L 145 H (70-105) mg/dL Hemoglobin A1c (4-6) % Lactic Acid (0.7-2.0) mmol/L Calcium (8.4-10.2) mg/dL Phosphorus (2.5-4.5) mg/dL Magnesium (1.7-2.3) mg/dL Total Bilirubin (0.1-1.2) mg/dL AST (5-40) units/L ALT (7-56) units/L Alkaline Phosphatase (35-129) units/L Total Creatine Kinase (55-170) units/L CK-MB (CK-2) (0.0-4.0) ng/mL CK-MB (CK-2) Rel Index (0-4) Troponin T (0.00-0.029) ng/mL Total Protein (6.3-8.2) g/dL Albumin (3.9-5) g/dL Medications & Allergies - Medications Allergies/Adverse Reactions: Allergies No Known Allergies Allergy (Verified 04/21/22 14:19) Home Medications: Home Medications Medication Instructions Recorded Confirmed Last Taken Type Baclofen 20 mg PO Q12H PRN #20 tab 04/17/22 Unknown Rx Naproxen 500 mg PO Q12H PRN #30 tab 04/17/22 Unknown Rx metFORMIN [Glucophage] 500 mg PO Q12H #60 tab 04/17/22 Unknown Rx Active Medications: Generic Name Dose Route Start Last Admin Trade Name Freq PRN Reason Stop Dose Admin Acetaminophen 650 mg 04/22/22 01:44 Acetaminophen 325 Mg Tab PO Q4H PRN Pain MILD(1-3)/Fever >100.5/KHAN Aspirin 300 mg 04/22/22 15:00 04/23/22 15:35 Aspirin 300 Mg Rect Supp ME Not Given QDAY ANALISA Dextrose 50 ml 04/23/22 09:12 Dextrose 50% In Water (25gm) 50 Ml Syringe IV Q30MIN PRN Hypoglycemia Protocol Dextrose 50 ml 04/23/22 12:00 04/23/22 13:18 Dextrose 50% In Water (25gm) 50 Ml Syringe IV 04/23/22 16:00 50 ml [email or web address]@1200 ANALISA Administration Famotidine 20 mg 04/22/22 22:00 04/23/22 14:59 Famotidine 20 Mg/2 Ml Inj IV 20 mg BID ANALISA Administration Hydromorphone HCl 0.5 mg 04/22/22 01:44 Hydromorphone 0.5 Mg/0.5 Ml Inj IV Q3H PRN Pain , Severe (7-10) Hydrophilic Ointment 1 applic 04/22/22 20:12 Lip Therapy Vaseline TP Q2HR PRN Dry Lips NORepinephrine/NS 8 MG-250 ML 8 mg in 250 mls @ 9.375 mls/hr 04/22/22 17:00 04/23/22 15:01 Norepinephrine/Ns 8 Mg-250 Ml (Double Conc) IV 10 mcg/min TITRATE ANALISA 18.75 mls/hr Administration Protocol 5 MCG/MIN Dopamine HCl/Dextrose 800 mg in 250 mls @ 2.381 mls/hr 04/22/22 18:00 04/23/22 13:07 Dopamine 800 Mg/D5w 250ml IV 0 mcg/kg/min TITR ANALISA 0 mls/hr Titration Protocol 2 MCG/KG/MIN Vasopressin 20 unit/ Sodium 101 mls @ 9.09 mls/hr 04/22/22 18:00 04/23/22 15:01 Chloride IV 0.03 units/min TITR ANALISA 9.09 mls/hr Administration Protocol 0.03 UNITS/MIN CALC GLUCONATE 1GM/NS 100 ML 1 gm in 100 mls @ 100 mls/hr 04/23/22 12:00 04/23/22 14:08 Calcium Gluonate/Ns 1,000mg/100ml IV 04/23/22 16:00 100 mls/hr [email or web address]@1200 ANALISA Administration Sodium Bicarbonate 150 meq/ 1,150 mls @ 125 mls/hr 04/23/22 13:00 04/23/22 14:58 Dextrose IV 125 mls/hr DIRECT ANALISA Administration Cefepime HCl 2 gm in 100 mls @ 200 mls/hr 04/23/22 15:00 04/23/22 14:58 Cefepime/Ns 2 Gm/100 Ml IV 200 mls/hr Q12H [facility] Administration Protocol Metronidazole 500 mg in 100 mls @ 100 mls/hr 04/23/22 15:00 04/23/22 14:58 Flagyl 500 Mg/100 Ml IV 100 mls/hr Q12H [facility] Administration Protocol Insulin Human Regular 0 units 04/23/22 12:00 04/23/22 15:36 Insulin Regular, Human 100 Units/1 Ml SUB-Q Not Given Q6H [facility] Protocol Insulin Human Regular 10 units 04/23/22 12:00 04/23/22 13:16 Insulin Regular, Human 100 Units/1 Ml IV 04/23/22 16:00 10 units [email or web address]@1200 ANALISA Administration Metoclopramide HCl 10 mg 04/22/22 01:44 Metoclopramide 10 Mg/2 Ml Inj IV Q6H PRN Nausea And Vomiting Multi-Ingred Cream/Lotion/Oil/Oint 1 applic 04/22/22 20:12 Mineral Oil/Petrolatum, White Ophth Oint 3.5 Gm OU Q4HR PRN Dry Eye(s) Ondansetron HCl 4 mg 04/22/22 01:44 Ondansetron 4 Mg/2 Ml Inj IV Q8H PRN Nausea And Vomiting Senna/Docusate Sodium 1 tab 04/22/22 22:00 04/23/22 15:35 Sennosides/Docusate Sodium 8.6/50 Mg Tab FEEDTUBE Not Given BID [facility] Sodium Bicarbonate 50 meq 04/23/22 12:00 04/23/22 12:34 Sodium Bicarb 8.4% 50 Meq/50 Ml Syringe IV 04/23/22 16:00 50 meq [email or web address]@1200 ANALISA Administration Sodium Chloride 10 ml 04/22/22 10:00 04/23/22 09:45 Sodium Chloride 0.9% 10 Ml Flush Syringe IV 10 ml BID ANALISA Administration Sodium Chloride 10 ml 04/22/22 01:44 Sodium Chloride 0.9% 10 Ml Flush Syringe IV PRN PRN LINE FLUSH Sodium Chloride 5 ml 04/22/22 20:12 Sodium Chloride 0.9% 500 Ml Ivpb IV DIRECT PRN [employer] CLAIMS HEART Score - HEART Score Troponin: Troponin T 2.840 ng/mL (0.00-0.029) H* D 04/23/22 10:46
[2022-04-23] MEDS ORDERED: PHENYLEPHRINE 100 MG in SODIUM CHLORIDE 0.9% 90 ML IV SCH (19:00)
[2022-04-23 21:50] LABS: Calcium 6.8 mg/dL (8.4-10.2)
[2022-04-23] MEDS ORDERED: SODIUM POLYSTYRENE 15 GM/60 ML ORAL LIQD PO ONE (22:29)
[2022-04-24] MEDS: SODIUM BICARBONATE 150 MEQ in DEXTROSE 5% IN WATER 1,000 ML IV SCH ×3 (00:11→19:06)
[2022-04-24] MEDS: INSULIN REGULAR, HUMAN 100 UNITS/1 ML SUB-Q SCH ×3 (00:25→17:44)
--- NOTE | 2022-04-24 03:30 | XRay Report ---
CHEST 1 VIEW 04/24/2022 2:19 AM INDICATION / CLINICAL INFORMATION: follow up respiratory failure. COMPARISON: None available. FINDINGS: SUPPORT DEVICES: ET tube is 7.1 cm above the kdoy HEART / MEDIASTINUM: Cardiomegaly. Marked tortuosity of the thoracic aorta with enlargement of the me diastinum LUNGS / PLEURA: Diffuse bilateral pulmonary opacities most significant in the right lung No pneumotho rax. ADDITIONAL FINDINGS: No significant additional findings. IMPRESSION: Worsening pulmonary opacities. Marked tortuosity of the thoracic aorta with widening of the cardiac m ediastinal silhouette ET tube is satisfactory in position Signer Name: Forest Hall MD Signed: 04/24/2022 3:26 AM Workstation Name: [email or web address]
[2022-04-24] MEDS: CEFEPIME/NS 2 GM/100 ML 2 GM/100 ML BAG IV SCH (03:36)
[2022-04-24] MEDS: metroNIDAZOLE/NS 500 MG/100 ML 500 MG/100 ML BAG IV SCH ×2 (03:36→15:30)
[2022-04-24] MEDS: VASOPRESSIN 20 UNIT in SODIUM CHLORIDE 0.9% 100 ML IV SCH ×2 (03:37→16:04)
[2022-04-24 04:16] LABS: Calcium 6.5 mg/dL (8.4-10.2)
[2022-04-24] MEDS ORDERED: SODIUM POLYSTYRENE 15 GM/60 ML ORAL LIQD PO ONE (04:25)
[2022-04-24 06:04] LABS: ABG HCO3 17.7 mmol/L (20.0-26.0); ABG Methemoglobin 0.2 % (0.0-1.5); ABG Oxygen Saturation 94.4 % (95.0-99.0); ABG PCO2 61.3 mm Hg; ABG PO2 95.7 mm Hg (80.0-90.0)
[2022-04-24] MEDS: NORepinephrine/NS 8 MG-250 ML 8 MG/250 ML INFUS..BTL IV SCH ×2 (06:04→19:44)
[2022-04-24 06:15] LABS: ABG PH 7.078 pH Units (7.350-7.450)
[2022-04-24] MEDS ORDERED: SODIUM BICARB 8.4% 50 MEQ/50 ML SYRINGE IV ONE (06:43)
[2022-04-24 06:44] LABS: Hematocrit 30.3 % (35.5-45.6); Hemoglobin 9.3 gm/dl (11.8-15.2); Mean Corpuscular HGB Conc 31 % (32-34); Mean Corpuscular Volume 101 fl (84-94); Red Cell Distribution Width 18.2 % (13.2-15.2)
[2022-04-24 06:46] LABS: Platelet Count 60 K/mm3 (140-440)
[2022-04-24 08:46] LABS: Albumin 1.9 g/dL (3.9-5)
[2022-04-24 09:00] LABS: Bilirubin,Direct 2.1 mg/dL (0-0.2); Calcium 6.5 mg/dL (8.4-10.2)
[2022-04-24] MEDS: FAMOTIDINE 20 MG/2 ML INJ IV SCH ×2 (09:35→21:00)
--- NOTE | 2022-04-24 10:11 | Progress Note ---
Assessment and Plan Patient appears to be too sick with multiorgan failure on multiple pressors. Prognosis is guarded. Goals of care need to be discussed as the care may be futile since the patient has no movements off sedation. Patient's elevated troponin are secondary to cardiac arrest. Echocardiogram shows severe LV systolic dysfunction patient also has known nonischemic cardiomyopathy. Patient is not making good urine output, consider giving a dose of Lasix. Device was interrogated which showed patient had 6 episodes of ventricular fibrillation starting at 5:09 PM yesterday during active CPR. Per her EP doctor who put in a device patient has a history of known congestive heart failure with a EF of 15% history of ventricular tachycardia paroxysmal atrial fibrillation COPD BPH and nonischemic cardiomyopathy. Patient is having episodes of nonsustained VT consider adding amiodarone this may be challenging given he has shock liver. - Patient Problems (1) Systolic and diastolic CHF, chronic Current Visit: Yes Status: Acute (2) Cardiac arrest due to underlying cardiac condition Current Visit: Yes Status: Acute (3) Elevated troponin level not due to acute coronary syndrome Current Visit: Yes Status: Acute (4) NSVT (nonsustained ventricular tachycardia) Current Visit: Yes Status: Acute Subjective Interval history: Overnight events noted. Patient had cardiac arrest with questionable ICD device shock. patient is intubated, patient does not have any movements of sedation. Objective Vital Signs Temp Pulse Resp BP Pulse Ox 04/24/22 09:16 107 H 28 H 93/50 97 04/24/22 09:00 111 H 28 H 81/57 04/24/22 08:46 106 H 28 H 81/57 97 04/24/22 08:30 122 H 28 H 92/56 97 04/24/22 08:16 100 H 28 H 92/56 04/24/22 08:00 96.3 F L 102 H 28 H 92/62 95 04/24/22 07:46 87 28 H 92/62 04/24/22 07:30 108 H 28 H 102/62 04/24/22 07:23 96.3 F L 04/24/22 07:15 112 H 28 H 102/62 94 04/24/22 07:00 108 H 28 H 112/58 94 04/24/22 06:45 85 28 H 104/57 04/24/22 06:30 111 H 24 111/60 08/16/22 06:15 83 24 112/55 93 04/24/22 06:00 95 H 24 109/56 93 04/24/22 05:45 84 24 109/56 95 04/24/22 05:30 91 H 24 111/69 04/24/22 05:15 83 24 111/69 04/24/22 05:00 113 H 24 107/59 04/24/22 04:46 94 H 24 118/63 90 04/24/22 04:30 100 H 24 105/49 86 04/24/22 04:15 82 24 105/49 94 04/24/22 04:07 101 H 04/24/22 04:00 83 24 140/48 94 04/24/22 03:46 101 H 24 79/59 96 04/24/22 03:30 97.8 F 107 H 24 89/52 04/24/22 03:16 106 H 24 129/99 94 04/24/22 03:00 95 H 24 74/50 93 04/24/22 02:46 113 H 25 H 74/50 92 04/24/22 02:30 110 H 24 94/61 92 04/24/22 02:15 91 H 24 91/71 93 04/24/22 02:00 92 H 24 93/46 92 04/24/22 01:46 90 24 93/46 04/24/22 01:44 90 92 04/24/22 01:30 96 H 24 120/67 81 L 04/24/22 01:15 92 H 24 120/67 95 04/24/22 01:00 112 H 24 99/44 04/24/22 00:45 91 H 24 99/44 94 04/24/22 00:30 90 24 96/73 93 04/24/22 00:15 89 24 96/73 90 04/24/22 00:00 89 24 78/51 90 04/23/22 23:46 92 H 24 78/51 90 04/23/22 23:45 95 H 24 78/51 89 04/23/22 23:31 98 H 25 H 90/60 93 04/23/22 23:30 96 H 24 90/60 90 04/23/22 23:24 91 H 139/72 91 04/23/22 23:16 92 H 24 99/55 89 04/23/22 23:10 96 H 24 92 04/23/22 23:05 98.0 F 04/23/22 23:00 93 H 24 101/45 90 04/23/22 22:46 91 H 24 101/45 93 04/23/22 22:30 89 24 130/33 04/23/22 22:16 87 24 127/101 04/23/22 22:00 97 H 24 111/64 90 04/23/22 21:46 92 H 24 117/57 04/23/22 21:30 91 H 24 100/51 88 04/23/22 21:15 96 H 24 79/52 88 04/23/22 21:00 93 H 24 45/20 85 04/23/22 20:46 90 24 45/20 04/23/22 20:30 92 H 24 84/58 85 04/23/22 20:15 92 H 24 84/58 04/23/22 20:00 92 H 24 85/59 66 L 04/23/22 19:45 91 H 24 76/55 85 04/23/22 19:30 89 24 90/54 86 04/23/22 19:15 86 24 98/53 85 04/23/22 19:05 97.9 F 88 24 94 04/23/22 19:00 88 24 93/50 84 04/23/22 18:45 87 24 83/62 85 04/23/22 18:30 91 H 24 79/62 81 L 04/23/22 18:15 87 24 93/50 74 L 04/23/22 18:00 87 24 85/58 86 04/23/22 17:45 85 24 93/48 82 L 04/23/22 17:30 86 24 130/97 04/23/22 17:16 87 24 130/97 85 04/23/22 17:00 84 24 72/54 04/23/22 16:50 91 H 130/97 86 04/23/22 16:46 84 24 154/100 82 L 04/23/22 16:30 70 24 87/50 86 04/23/22 16:16 74 24 72/54 92 04/23/22 16:00 97.5 F L 74 24 87/50 92 04/23/22 15:45 70 24 86/47 92 04/23/22 15:30 84 24 98/59 04/23/22 15:16 76 24 98/59 91 04/23/22 15:00 79 24 98/59 93 04/23/22 14:46 76 24 103/60 93 04/23/22 14:30 85 24 151/108 04/23/22 14:16 84 24 151/108 04/23/22 14:00 80 18 117/85 04/23/22 13:46 108 H 23 89/51 100 04/23/22 13:30 74 24 117/85 04/23/22 13:16 87 25 H 117/85 97 04/23/22 13:00 88 26 H 96/64 04/23/22 12:46 93 H 24 96/64 04/23/22 12:30 85 25 H 96/64 91 04/23/22 12:16 86 24 111/67 04/23/22 12:00 98.2 F 78 25 H 111/67 63 L 04/23/22 11:46 86 25 H 103/62 04/23/22 11:45 98.8 F 04/23/22 11:30 88 24 103/62 04/23/22 11:16 87 24 111/54 89 04/23/22 11:00 86 24 111/54 04/23/22 10:46 87 24 63/24 93 04/23/22 10:30 88 25 H 63/24 04/23/22 10:16 88 26 H 63/24 93 - Physical Examination HEENT: Positive: PERRL, Normocephaly Neck: Positive: trachea midline. Negative: JVD/HJR Cardiac: Positive: Reg Rate and Rhythm, S1/S2 Lungs: Positive: clear to auscultation (Anteriorly), Decreased Breath Sounds Neuro: Positive: Other (Intubated and sedated) Abdomen: Positive: Soft Skin: Negative: Rash Extremities: Absent: edema - Labs and Meds Cardiac Enzymes 04/23/22 04/24/22 Range/Units 10:46 06:00 AST 09935 H (5-40) units/L CK-MB (CK-2) 106.7 H (0.0-4.0) ng/mL Lipids 04/21/22 Range/Units 13:21 Triglycerides 139 (2-149) mg/dL Cholesterol 189 (50-199) mg/dL HDL Cholesterol 47 (40-59) mg/dL Cholesterol/HDL Ratio 4.02 % CBC 04/23/22 04/24/22 Range/Units 11:30 06:00 WBC 8.2 5.3 (4.5-11.0) K/mm3 RBC 3.11 L 3.00 L (3.65-5.03) M/mm3 Hgb 9.7 L 9.3 L (11.8-15.2) gm/dl Hct 31.3 L 30.3 L (35.5-45.6) % Plt Count 65 L 60 L (140-440) K/mm3 Comprehensive Metabolic Panel 04/23/22 04/23/22 04/24/22 Range/Units 10:46 21:10 03:16 Sodium 154 H 151 H 149 H (137-145) mmol/L Potassium 6.6 H* 5.9 H 5.6 H (3.6-5.0) mmol/L Chloride 119.2 H 115.3 H 112.2 H (98-107) mmol/L Carbon Dioxide 14 L 16 L 18 L (22-30) mmol/L BUN 30 H 34 H 36 H (9-20) mg/dL Creatinine 1.6 H 2.0 H 2.3 H (0.8-1.3) mg/dL Glucose 110 H 175 H 188 H (75-100) mg/dL Calcium 7.3 L 6.8 L 6.5 L (8.4-10.2) mg/dL Direct Bilirubin (0-0.2) mg/dL Indirect Bilirubin mg/dL AST (5-40) units/L ALT (7-56) units/L Alkaline Phosphatase (35-129) units/L Total Protein (6.3-8.2) g/dL Albumin (3.9-5) g/dL 04/24/22 Range/Units 06:00 Sodium 154 H (137-145) mmol/L Potassium 5.7 H (3.6-5.0) mmol/L Chloride 115.4 H (98-107) mmol/L Carbon Dioxide 17 L (22-30) mmol/L BUN 38 H (9-20) mg/dL Creatinine 2.4 H (0.8-1.3) mg/dL Glucose 191 H (75-100) mg/dL Calcium 6.5 L (8.4-10.2) mg/dL Direct Bilirubin 2.1 H (0-0.2) mg/dL Indirect Bilirubin 0.2 mg/dL AST 15010 H (5-40) units/L ALT 5976 H (7-56) units/L Alkaline Phosphatase 165 H (35-129) units/L Total Protein 3.4 L D (6.3-8.2) g/dL Albumin 1.9 L (3.9-5) g/dL - Telemetry EKG Rhythm: Paced (Episodes of nonsustained VT)
[2022-04-24] MEDS: FREE WATER PO SCH ×4 (10:24→21:12)
[2022-04-24] MEDS: ASPIRIN 300 MG RECT SUPP PR SCH (10:24)
--- NOTE | 2022-04-24 10:38 | Progress Note ---
Assessment and Plan 66 y/o male admitted with DKA, now with multisystem organ failure post cardiac arrest x3 04/24/22: Spoke with sister again this morning. Per her, daughter is on board with [facility]. Will call after rounds today to do phone consent for this as the daughter is in [place]. Continue supportive management. repeat ABG this afternoon. May need HD but will defer to renal. Guarded to poor prognosis. Reviewed neurology note and agree with assessment. Likelihood of recovery, very very low. Overall prognosis is extremely poor. Likely anoxic brain injuy, renal failure in need of HD, cardiovascular collapse and respiratory failure. Will continue supportive measures. Family will likely make patient DNR and hopefully pursue comfort measures. Treating Hyperkalemia. Fluids. Wean Pressors as tolerated. CCT 31 minutes. Subjective Date of service: 04/24/22 Interval history: No acute events. Still on 2 pressors. BP stable. Mental status is unchanged on no sedation. Not breathing over vent. Worsening renal failure, and worsening acidosis. My partner increased rate on vent. Already on bicarb drip. K is better but still elevated. Objective - Constitutional Vitals: Vital Signs - 12hr 04/23/22 04/23/22 04/23/22 22:46 23:00 23:05 Temperature 98.0 F Pulse Rate 91 H 93 H Respiratory 24 24 Rate Blood Pressure 101/45 101/45 O2 Sat by Pulse 93 90 Oximetry 04/23/22 04/23/22 04/23/22 23:10 23:16 23:24 Temperature Pulse Rate 96 H 92 H 91 H Respiratory 24 24 Rate Blood Pressure 99/55 139/72 O2 Sat by Pulse 92 89 91 Oximetry 04/23/22 04/23/22 04/23/22 23:30 23:31 23:45 Temperature Pulse Rate 96 H 98 H 95 H Respiratory 24 25 H 24 Rate Blood Pressure 90/60 90/60 78/51 O2 Sat by Pulse 90 93 89 Oximetry 04/23/22 04/24/22 04/24/22 23:46 00:00 00:15 Temperature Pulse Rate 92 H 89 89 Respiratory 24 24 24 Rate Blood Pressure 78/51 78/51 96/73 O2 Sat by Pulse 90 90 90 Oximetry 04/24/22 04/24/22 04/24/22 00:30 00:45 01:00 Temperature Pulse Rate 90 91 H 112 H Respiratory 24 24 24 Rate Blood Pressure 96/73 99/44 99/44 O2 Sat by Pulse 93 94 Oximetry 04/24/22 04/24/22 04/24/22 01:15 01:30 01:44 Temperature Pulse Rate 92 H 96 H 90 Respiratory 24 24 Rate Blood Pressure 120/67 120/67 O2 Sat by Pulse 95 81 L 92 Oximetry 04/24/22 04/24/22 04/24/22 01:46 02:00 02:15 Temperature Pulse Rate 90 92 H 91 H Respiratory 24 24 24 Rate Blood Pressure 93/46 93/46 91/71 O2 Sat by Pulse 92 93 Oximetry 04/24/22 04/24/22 04/24/22 02:30 02:46 03:00 Temperature Pulse Rate 110 H 113 H 95 H Respiratory 24 25 H 24 Rate Blood Pressure 94/61 74/50 74/50 O2 Sat by Pulse 92 92 93 Oximetry 04/24/22 04/24/22 04/24/22 03:16 03:30 03:46 Temperature 97.8 F Pulse Rate 106 H 107 H 101 H Respiratory 24 24 24 Rate Blood Pressure 129/99 89/52 79/59 O2 Sat by Pulse 94 96 Oximetry 04/24/22 04/24/22 04/24/22 04:00 04:07 04:15 Temperature Pulse Rate 83 101 H 82 Respiratory 24 24 Rate Blood Pressure 140/48 105/49 O2 Sat by Pulse 94 94 Oximetry 04/24/22 04/24/22 04/24/22 04:30 04:46 05:00 Temperature Pulse Rate 100 H 94 H 113 H Respiratory 24 24 24 Rate Blood Pressure 105/49 118/63 107/59 O2 Sat by Pulse 86 90 Oximetry 04/24/22 04/24/22 04/24/22 05:15 05:30 05:45 Temperature Pulse Rate 83 91 H 84 Respiratory 24 24 24 Rate Blood Pressure 111/69 111/69 109/56 O2 Sat by Pulse 95 Oximetry 04/24/22 04/24/22 04/24/22 06:00 06:15 06:30 Temperature Pulse Rate 95 H 83 111 H Respiratory 24 24 24 Rate Blood Pressure 109/56 112/55 111/60 O2 Sat by Pulse 93 93 Oximetry 04/24/22 04/24/22 04/24/22 06:45 07:00 07:15 Temperature Pulse Rate 85 108 H 112 H Respiratory 28 H 28 H 28 H Rate Blood Pressure 104/57 112/58 102/62 O2 Sat by Pulse 94 94 Oximetry 04/24/22 04/24/22 04/24/22 07:23 07:30 07:46 Temperature 96.3 F L Pulse Rate 108 H 87 Respiratory 28 H 28 H Rate Blood Pressure 102/62 92/62 O2 Sat by Pulse Oximetry 04/24/22 04/24/22 04/24/22 08:00 08:16 08:30 Temperature 96.3 F L Pulse Rate 102 H 100 H 122 H Respiratory 28 H 28 H 28 H Rate Blood Pressure 92/62 92/56 92/56 O2 Sat by Pulse 95 97 Oximetry 04/24/22 04/24/22 04/24/22 08:46 09:00 09:16 Temperature Pulse Rate 106 H 111 H 107 H Respiratory 28 H 28 H 28 H Rate Blood Pressure 81/57 81/57 93/50 O2 Sat by Pulse 97 97 Oximetry General appearance: Present: severe distress, disheveled - EENT ENT: other (orally intubated, not on sedation) - Neck Neck: supple - Respiratory Respiratory effort: labored Respiratory: right: rales, bilateral: diminished - Cardiovascular Rhythm: other (sinus tach) Heart Sounds: Present: S1 & S2 Extremities: abnormal Extremity abnormal: pulses diminished - Labs CBC & Chem 7: 04/24/22 06:00 04/24/22 06:00 Labs: Abnormal lab results 04/22/22 04/23/22 04/23/22 Range/Units 09:34 10:46 10:46 RBC (3.65-5.03) M/mm3 Hgb (11.8-15.2) gm/dl Hct (35.5-45.6) % MCV (84-94) fl MCHC (32-34) % RDW (13.2-15.2) % Plt Count (140-440) K/mm3 Heparin Anti-Xa Level (0.3-0.7) U.I./ml ABG pH (7.350-7.450) pH Units ABG pO2 (80.0-90.0) mm Hg ABG HCO3 (20.0-26.0) mmol/L ABG O2 Saturation (95.0-99.0) % ABG Base Excess (-2.0-3.0) mmol/L ABG Hemoglobin (14.0-18.0) gm/dl Oxyhemoglobin (95.0-99.0) % Sodium 154 H (137-145) mmol/L Potassium 6.6 H* (3.6-5.0) mmol/L Chloride 119.2 H (98-107) mmol/L Carbon Dioxide 14 L (22-30) mmol/L BUN 30 H (9-20) mg/dL Creatinine 1.6 H (0.8-1.3) mg/dL Glucose 110 H (75-100) mg/dL POC Glucose (70-105) mg/dL Hemoglobin A1c 15.4 H (4-6) % Lactic Acid 9.60 H* (0.7-2.0) mmol/L Calcium 7.3 L (8.4-10.2) mg/dL Total Bilirubin (0.1-1.2) mg/dL Direct Bilirubin (0-0.2) mg/dL AST (5-40) units/L ALT (7-56) units/L Alkaline Phosphatase (35-129) units/L Total Creatine Kinase (55-170) units/L CK-MB (CK-2) (0.0-4.0) ng/mL CK-MB (CK-2) Rel Index (0-4) Troponin T (0.00-0.029) ng/mL Total Protein (6.3-8.2) g/dL Albumin (3.9-5) g/dL 04/23/22 04/23/22 04/23/22 Range/Units 10:46 11:28 11:30 RBC 3.11 L (3.65-5.03) M/mm3 Hgb 9.7 L (11.8-15.2) gm/dl Hct 31.3 L (35.5-45.6) % MCV 100 H (84-94) fl MCHC 31 L (32-34) % RDW 19.0 H (13.2-15.2) % Plt Count 65 L (140-440) K/mm3 Heparin Anti-Xa Level (0.3-0.7) U.I./ml ABG pH (7.350-7.450) pH Units ABG pO2 (80.0-90.0) mm Hg ABG HCO3 (20.0-26.0) mmol/L ABG O2 Saturation (95.0-99.0) % ABG Base Excess (-2.0-3.0) mmol/L ABG Hemoglobin (14.0-18.0) gm/dl Oxyhemoglobin (95.0-99.0) % Sodium (137-145) mmol/L Potassium (3.6-5.0) mmol/L Chloride (98-107) mmol/L Carbon Dioxide (22-30) mmol/L BUN (9-20) mg/dL Creatinine (0.8-1.3) mg/dL Glucose (75-100) mg/dL POC Glucose (70-105) mg/dL Hemoglobin A1c (4-6) % Lactic Acid 9.80 H* (0.7-2.0) mmol/L Calcium (8.4-10.2) mg/dL Total Bilirubin (0.1-1.2) mg/dL Direct Bilirubin (0-0.2) mg/dL AST (5-40) units/L ALT (7-56) units/L Alkaline Phosphatase (35-129) units/L Total Creatine Kinase 1942 H (55-170) units/L CK-MB (CK-2) 106.7 H (0.0-4.0) ng/mL CK-MB (CK-2) Rel Index 5.4 H (0-4) Troponin T 2.840 H* D (0.00-0.029) ng/mL Total Protein (6.3-8.2) g/dL Albumin (3.9-5) g/dL 04/23/22 04/23/22 04/23/22 Range/Units 12:29 12:59 17:42 RBC (3.65-5.03) M/mm3 Hgb (11.8-15.2) gm/dl Hct (35.5-45.6) % MCV (84-94) fl MCHC (32-34) % RDW (13.2-15.2) % Plt Count (140-440) K/mm3 Heparin Anti-Xa Level (0.3-0.7) U.I./ml ABG pH (7.350-7.450) pH Units ABG pO2 (80.0-90.0) mm Hg ABG HCO3 (20.0-26.0) mmol/L ABG O2 Saturation (95.0-99.0) % ABG Base Excess (-2.0-3.0) mmol/L ABG Hemoglobin (14.0-18.0) gm/dl Oxyhemoglobin (95.0-99.0) % Sodium (137-145) mmol/L Potassium (3.6-5.0) mmol/L Chloride (98-107) mmol/L Carbon Dioxide (22-30) mmol/L BUN (9-20) mg/dL Creatinine (0.8-1.3) mg/dL Glucose (75-100) mg/dL POC Glucose 61 L 145 H 148 H (70-105) mg/dL Hemoglobin A1c (4-6) % Lactic Acid (0.7-2.0) mmol/L Calcium (8.4-10.2) mg/dL Total Bilirubin (0.1-1.2) mg/dL Direct Bilirubin (0-0.2) mg/dL AST (5-40) units/L ALT (7-56) units/L Alkaline Phosphatase (35-129) units/L Total Creatine Kinase (55-170) units/L CK-MB (CK-2) (0.0-4.0) ng/mL CK-MB (CK-2) Rel Index (0-4) Troponin T (0.00-0.029) ng/mL Total Protein (6.3-8.2) g/dL Albumin (3.9-5) g/dL 04/23/22 04/24/22 04/24/22 Range/Units 21:10 00:18 03:16 RBC (3.65-5.03) M/mm3 Hgb (11.8-15.2) gm/dl Hct (35.5-45.6) % MCV (84-94) fl MCHC (32-34) % RDW (13.2-15.2) % Plt Count (140-440) K/mm3 Heparin Anti-Xa Level (0.3-0.7) U.I./ml ABG pH (7.350-7.450) pH Units ABG pO2 (80.0-90.0) mm Hg ABG HCO3 (20.0-26.0) mmol/L ABG O2 Saturation (95.0-99.0) % ABG Base Excess (-2.0-3.0) mmol/L ABG Hemoglobin (14.0-18.0) gm/dl Oxyhemoglobin (95.0-99.0) % Sodium 151 H 149 H (137-145) mmol/L Potassium 5.9 H 5.6 H (3.6-5.0) mmol/L Chloride 115.3 H 112.2 H (98-107) mmol/L Carbon Dioxide 16 L 18 L (22-30) mmol/L BUN 34 H 36 H (9-20) mg/dL Creatinine 2.0 H 2.3 H (0.8-1.3) mg/dL Glucose 175 H 188 H (75-100) mg/dL POC Glucose 175 H (70-105) mg/dL Hemoglobin A1c (4-6) % Lactic Acid (0.7-2.0) mmol/L Calcium 6.8 L 6.5 L (8.4-10.2) mg/dL Total Bilirubin (0.1-1.2) mg/dL Direct Bilirubin (0-0.2) mg/dL AST (5-40) units/L ALT (7-56) units/L Alkaline Phosphatase (35-129) units/L Total Creatine Kinase (55-170) units/L CK-MB (CK-2) (0.0-4.0) ng/mL CK-MB (CK-2) Rel Index (0-4) Troponin T (0.00-0.029) ng/mL Total Protein (6.3-8.2) g/dL Albumin (3.9-5) g/dL 04/24/22 04/24/22 04/24/22 Range/Units 05:45 05:51 06:00 RBC 3.00 L (3.65-5.03) M/mm3 Hgb 9.3 L (11.8-15.2) gm/dl Hct 30.3 L (35.5-45.6) % MCV 101 H (84-94) fl MCHC 31 L (32-34) % RDW 18.2 H (13.2-15.2) % Plt Count 60 L (140-440) K/mm3 Heparin Anti-Xa Level (0.3-0.7) U.I./ml ABG pH 7.078 L* (7.350-7.450) pH Units ABG pO2 95.7 H (80.0-90.0) mm Hg ABG HCO3 17.7 L (20.0-26.0) mmol/L ABG O2 Saturation 94.4 L (95.0-99.0) % ABG Base Excess -12.0 L (-2.0-3.0) mmol/L ABG Hemoglobin 8.7 L (14.0-18.0) gm/dl Oxyhemoglobin 92.9 L (95.0-99.0) % Sodium (137-145) mmol/L Potassium (3.6-5.0) mmol/L Chloride (98-107) mmol/L Carbon Dioxide (22-30) mmol/L BUN (9-20) mg/dL Creatinine (0.8-1.3) mg/dL Glucose (75-100) mg/dL POC Glucose 142 H (70-105) mg/dL Hemoglobin A1c (4-6) % Lactic Acid (0.7-2.0) mmol/L Calcium (8.4-10.2) mg/dL Total Bilirubin (0.1-1.2) mg/dL Direct Bilirubin (0-0.2) mg/dL AST (5-40) units/L ALT (7-56) units/L Alkaline Phosphatase (35-129) units/L Total Creatine Kinase (55-170) units/L CK-MB (CK-2) (0.0-4.0) ng/mL CK-MB (CK-2) Rel Index (0-4) Troponin T (0.00-0.029) ng/mL Total Protein (6.3-8.2) g/dL Albumin (3.9-5) g/dL 04/24/22 04/24/22 Range/Units 06:00 06:00 RBC (3.65-5.03) M/mm3 Hgb (11.8-15.2) gm/dl Hct (35.5-45.6) % MCV (84-94) fl MCHC (32-34) % RDW (13.2-15.2) % Plt Count (140-440) K/mm3 Heparin Anti-Xa Level < 0.10 L (0.3-0.7) U.I./ml ABG pH (7.350-7.450) pH Units ABG pO2 (80.0-90.0) mm Hg ABG HCO3 (20.0-26.0) mmol/L ABG O2 Saturation (95.0-99.0) % ABG Base Excess (-2.0-3.0) mmol/L ABG Hemoglobin (14.0-18.0) gm/dl Oxyhemoglobin (95.0-99.0) % Sodium 154 H (137-145) mmol/L Potassium 5.7 H (3.6-5.0) mmol/L Chloride 115.4 H (98-107) mmol/L Carbon Dioxide 17 L (22-30) mmol/L BUN 38 H (9-20) mg/dL Creatinine 2.4 H (0.8-1.3) mg/dL Glucose 191 H (75-100) mg/dL POC Glucose (70-105) mg/dL Hemoglobin A1c (4-6) % Lactic Acid (0.7-2.0) mmol/L Calcium 6.5 L (8.4-10.2) mg/dL Total Bilirubin 2.30 H (0.1-1.2) mg/dL Direct Bilirubin 2.1 H (0-0.2) mg/dL AST 48858 H (5-40) units/L ALT 5976 H (7-56) units/L Alkaline Phosphatase 165 H (35-129) units/L Total Creatine Kinase (55-170) units/L CK-MB (CK-2) (0.0-4.0) ng/mL CK-MB (CK-2) Rel Index (0-4) Troponin T (0.00-0.029) ng/mL Total Protein 3.4 L D (6.3-8.2) g/dL Albumin 1.9 L (3.9-5) g/dL Medications & Allergies - Medications Allergies/Adverse Reactions: Allergies No Known Allergies Allergy (Verified 04/21/22 14:19) Home Medications: Home Medications Medication Instructions Recorded Confirmed Last Taken Type Baclofen 20 mg PO Q12H PRN #20 tab 04/17/22 Unknown Rx Naproxen 500 mg PO Q12H PRN #30 tab 04/17/22 Unknown Rx metFORMIN [Glucophage] 500 mg PO Q12H #60 tab 04/17/22 Unknown Rx Active Medications: Generic Name Dose Route Start Last Admin Trade Name Ladarius PRN Reason Stop Dose Admin Acetaminophen 650 mg 04/22/22 01:44 Acetaminophen 325 Mg Tab PO Q4H PRN Pain MILD(1-3)/Fever >100.5/KHAN Aspirin 300 mg 04/22/22 15:00 04/24/22 10:24 Aspirin 300 Mg Rect Supp NC Not Given QDAY ANALISA Dextrose 50 ml 04/23/22 09:12 Dextrose 50% In Water (25gm) 50 Ml Syringe IV Q30MIN PRN Hypoglycemia Protocol Famotidine 10 mg 04/24/22 22:00 Famotidine 20 Mg/2 Ml Inj IV BID ANALISA Hydrophilic Ointment 1 applic 04/22/22 20:12 Lip Therapy Vaseline TP Q2HR PRN Dry Lips NORepinephrine/NS 8 MG-250 ML 8 mg in 250 mls @ 9.375 mls/hr 04/22/22 17:00 04/24/22 06:06 Norepinephrine/Ns 8 Mg-250 Ml (Double Conc) IV 8 mcg/min TITRATE ANALISA 15 mls/hr Titration Protocol 5 MCG/MIN Dopamine HCl/Dextrose 800 mg in 250 mls @ 2.381 mls/hr 04/22/22 18:00 04/23/22 13:07 Dopamine 800 Mg/D5w 250ml IV 0 mcg/kg/min TITR ANALISA 0 mls/hr Titration Protocol 2 MCG/KG/MIN Vasopressin 20 unit/ Sodium 101 mls @ 9.09 mls/hr 04/22/22 18:00 04/24/22 03:37 Chloride IV 0.03 units/min TITR ANALISA 9.09 mls/hr Administration Protocol 0.03 UNITS/MIN Sodium Bicarbonate 150 meq/ 1,150 mls @ 125 mls/hr 04/23/22 13:00 04/24/22 09:34 Dextrose IV 125 mls/hr DIRECT ANALISA Administration Metronidazole 500 mg in 100 mls @ 100 mls/hr 04/23/22 15:00 04/24/22 03:36 Flagyl 500 Mg/100 Ml IV 100 mls/hr Q12H ANALISA Administration Protocol Phenylephrine HCl 100 mg/ 100 mls @ 3 mls/hr 04/23/22 19:00 04/23/22 22:20 Sodium Chloride IV 0 mcg/min TITR ANALISA 0 mls/hr Titration Protocol 50 MCG/MIN Cefepime HCl 2 gm in 100 mls @ 200 mls/hr 04/24/22 22:00 Cefepime/Ns 2 Gm/100 Ml IV Q24H ANALISA Protocol Insulin Human Regular 0 units 04/23/22 12:00 04/24/22 00:25 Insulin Regular, Human 100 Units/1 Ml SUB-Q 2 units Q6H ANALISA Administration Protocol Metoclopramide HCl 10 mg 04/22/22 01:44 Metoclopramide 10 Mg/2 Ml Inj IV Q6H PRN Nausea And Vomiting Multi-Ingred Cream/Lotion/Oil/Oint 1 applic 04/22/22 20:12 Mineral Oil/Petrolatum, White Ophth Oint 3.5 Gm OU Q4HR PRN Dry Eye(s) Ondansetron HCl 4 mg 04/22/22 01:44 Ondansetron 4 Mg/2 Ml Inj IV Q8H PRN Nausea And Vomiting Senna/Docusate Sodium 1 tab 04/22/22 22:00 04/23/22 21:28 Sennosides/Docusate Sodium 8.6/50 Mg Tab FEEDTUBE Not Given BID ANALISA Sodium Chloride 10 ml 04/22/22 10:00 04/24/22 10:25 Sodium Chloride 0.9% 10 Ml Flush Syringe IV 10 ml BID ANALISA Administration Sodium Chloride 10 ml 04/22/22 01:44 Sodium Chloride 0.9% 10 Ml Flush Syringe IV PRN PRN LINE FLUSH Sodium Chloride 5 ml 04/22/22 20:12 Sodium Chloride 0.9% 500 Ml Ivpb IV DIRECT PRN [employer] HEART Score - HEART Score Troponin: Troponin T 2.840 ng/mL (0.00-0.029) H* D 04/23/22 10:46
[2022-04-24] MEDS ORDERED: INSULIN REGULAR, HUMAN 100 UNITS/1 ML IV SCH (11:30)
[2022-04-24] MEDS ORDERED: SODIUM BICARB 8.4% 50 MEQ/50 ML SYRINGE IV SCH (11:30)
[2022-04-24] MEDS ORDERED: SODIUM POLYSTYRENE 15 GM/60 ML ORAL LIQD PO SCH (11:30)
[2022-04-24] MEDS ORDERED: DEXTROSE 50% IN WATER (25GM) 50 ML SYRINGE IV SCH (11:30)
[2022-04-24] MEDS: SENNOSIDES/DOCUSATE SODIUM 8.6/50 MG TAB FEEDTUBE SCH ×2 (11:48→21:12)
--- NOTE | 2022-04-24 12:31 | Progress Note ---
<TAYLOR GREEN - Last Filed: 04/24/22 22:40> Assessment and Plan Assessment and plan: This is a 66-year-old female with DM, cardiomegaly, Vtach, paroxysmal Afib, NICM s/p bivalve ICD, COPD, Hep C and noncompliance admitted with DKA. S/p X3 cardiac arrest with ROSC, now unresponsive on the vent and on multiple pressors Hospital course to date: 04/22: [facility] ordered abdominal ultrasound, bladder scan completed which showed 100 cc of urine so we will continue condom cath. [facility] would like to also check for HIV. Patient given LR bolus and bicarb. On exam patient is cold and mottled to bilateral lower extremities. Stat echocardiogram ordered. Patient also started on CIWA protocol. We will continue broad-spectrum antibiotics for now. 04/23: s/p X3 cardiac arrest with ROSC. Now unresponsive on the vent, not on any sedation with no pupillary response and no gag/cough reflexes, probable anoxic brain Injury. CT scan pending, patient too unstable for transfer. EEG pending and Neurology is consulted. Patient is on 3 pressors and Bcarb gtt, BP remains labile. Troponin continue to trend up, probably due to cardiac events, however can't r/o ischemic event. 2D Echo pending and Cardiology consulted. Will also broaden empiric IV abx for now, urine culture with GPC, blood cultures pending. Due to severe lactic acidosis c/f for ischeemic gut, patient too unstable for transport at this time. Renal function is also worsening with electrolytes imbalance, hyperkalemia treated per protocol, continue to trend BMP. Consider Nephrology consult if worsen. Case management is following for assistance with locating NOK. Very poor prognosis. 04/24: Mentation unchanged. EEG pending, patient is too unstable for transport, Neurology is also following. Remains on 2 pressors and Bcarb gtt. Titrate pressors for MAP above 65. 2D echo reviewed, EF 10 to 15%. Also with worsen LFTs and renal function and electrolytes imbalance, consistent with multi-organ failure. Cardiology is also following and Nephrology consulted. [facility] spoke with patient's daughter and sister yesterday, they are considering AND/DNR. Case management to follow up with family today for a desicion. Extremely poor prog nosis. Neuro: Probable Anoxic Brain Injury, Acute metabolic encephalopathy, h/o CVA -Initial CT head shows no acute finding, chronic left NURSES SUPERINTENDENT territory infarct, global atrophy -Initial CT C-spine shows no acute fracture or subluxation in the spine and neutral position -s/p X3 cardiac Arrest. Now unresponsive on the vent. Pupils are irregular and nonrective, no gag/cough -Too unstable for transport for repeat CT -EEG and Neurology consult pending -No sedative agents at this time -As needed analgesia for vent asynchrony Cardiac: S/p X3 Cardiac Arrest with ROSC, Cardiogenic Shock, Elevated troponin, h/o Cardiomypathy s/p AICD -S/p X3 Cardiac arrest with ROSC- see event notes - Now on multiple pressors and bcarb gtt -Cardiology consulted, appreciate recommendations -2D Echo- EF 10-15%, see report for details -Blood pressure monitoring per protocol -Titrate pressors for MAP above 65 -Aspirin, lipitor- held due to shock liver -Trend troponin Respiratory: Acute hypoxic respiratory failure -Intubated during code on 04/22 - Vent setting: PRVC-100%,6,[id number] - AM ABG noted, vent adjusted per CCM - CCM consulted, appreciate recommendations - VAP bundle addressed - Aspiration precaution HOB above 30 - Daily ABG and CXR - Continue SPO2 monitoring for SPO2 goal above 92% GI: Shock Liver, transaminitis, Moderate protein calorie malnutrition, Hep C, -Worsen LFTs,most likely shock liver -Continue to trnd LFTs -Patient is cachectic appearing -TF held due to high pressor requirements -Abdominal ultrasound pending : Acute Kidney Injury(CARLOS) most likely ATN, Hyperkalemoa -2/2 hypoperfusion due to code -Renal function is also worsening with electrolytes imbalance and anuria -hyperkalemia treated per protocol, continue to trend BMP. -Strict intake and output -Avoid nephrotoxic medications; Renally dose medications -Stout in place -Continue IVF for now -Monitor and replace electrolytes as needed -Consider Nephrology consult if worsen ID: [id number], Severe Lactic Acidosis, C/F ischemic Gut -Presented with tachycardia, Lactic acidosis -urine culture with GPC, blood cultures pending. -Due to severe lactic acidosis c/f for ischemic gut, Will also broaden empiric IV abx for now -patient too unstable for transport at this time. -HIV negative -f/u blood culture -Monitor WBC and temperature curve -Consider ID consult if worsen Endo: s/p DKA, h/o DM -Presented with VBG 7.2, hypernatremia, anion gap 31, BG 402 -s/p DKA protocol -Transition to Accu-Cheks and SSI Q6hrs -TF on hold due to high pressor requirements -Avoid hypoglycemia Heme: Thrombocytopenia -Worsen plt this am -Heparin gtt D/Prudencio -H&H stable, no s/s of any active bleeding -Trend CBC -Transfuse hemoglobin less than 7 -SCDs to BLE while in bed GI/DVT Prophylaxis -PPI- Pepcid -SCDs to BLE while in bed The high probability of a clinically significant, sudden or life threatening deterioration of the [multi] system(s) required my full and direct attention, intervention and personal management. The aggregate critical care time was [60] minutes. This time is in addition to time spent performing reported procedures but includes the following: [x] Data Review and interpretation [x] Patient assessment and monitoring of vital signs [x] Documentation [x] Medication orders and management Disposition Plan: ICU Total Time Spent with Patient (Minutes): 60 History Interval history: Patient seen and examined at the bedside. Intubated and unresponsive, not on any sedation. Pupils are irregular and nonreactive, with no gag/cough. All extremities are cool to touch and mottled. On 2 pressors and a Bcarb gtt, BP stable, Paced on the monitor Hospitalist Physical - Physical exam Narrative exam: General appearance: Present: no acute distress, cachectic, other (Intubated and unresponsive. Not on any sedations) - EENT Eyes: Present: irregular pupil (nonreactive), mydriasis - Respiratory Respiratory effort: normal Respiratory: bilateral: rhonchi - Cardiovascular Rhythm: regular Heart Sounds: Present: S1 & S2 - Extremities Extremities: abnormal (All extremities are mottles) Extremity abnormal: cold, pulses diminished Peripheral Pulses: abnormal (Diminished) - Abdominal General gastrointestinal: soft, non-distended, hypoactive bowel sounds - Integumentary Integumentary: Present: pale (Mottle skin) - Psychiatric Psychiatric: other (Intubated and unresponsive. Not on any sedations) - Neurologic Neurologic: focal deficits (Pupils are irregular and nonreactive, no gag/cough), other (Intubated and unresponsive. Not on any sedations) - Allied Health Allied health notes reviewed: nursing, case management - Constitutional Vitals: Temp Pulse Resp BP Pulse Ox 96.3 F L 116 H 28 H 73/53 97 04/24/22 12:04 04/24/22 09:32 04/24/22 09:16 04/24/22 09:32 04/24/22 09:32 HEART Score - HEART Score Troponin: Troponin T 2.840 ng/mL (0.00-0.029) H* D 04/23/22 10:46 Results - Labs CBC & Chem 7: 04/24/22 06:00 04/24/22 06:00 Labs: Laboratory Last Values WBC 5.3 K/mm3 (4.5-11.0) 04/24/22 06:00 RBC 3.00 M/mm3 (3.65-5.03) L 04/24/22 06:00 Hgb 9.3 gm/dl (11.8-15.2) L 04/24/22 06:00 Hct 30.3 % (35.5-45.6) L 04/24/22 06:00 MCV 101 fl (84-94) H 04/24/22 06:00 MCH 31 pg (28-32) 04/24/22 06:00 MCHC 31 % (32-34) L 04/24/22 06:00 RDW 18.2 % (13.2-15.2) H 04/24/22 06:00 Plt Count 60 K/mm3 (140-440) L 04/24/22 06:00 Lymph % (Auto) 5.7 % (13.4-35.0) L 04/21/22 13:21 [place] % (Auto) 7.9 % (0.0-7.3) H 04/21/22 13:21 Eos % (Auto) 0.0 % (0.0-4.3) 04/21/22 13:21 Baso % (Auto) 0.1 % (0.0-1.8) 04/21/22 13:21 Lymph # (Auto) 0.4 K/mm3 (1.2-5.4) L 04/21/22 13:21 [place] # (Auto) 0.5 K/mm3 (0.0-0.8) 04/21/22 13:21 Eos # (Auto) 0.0 K/mm3 (0.0-0.4) 04/21/22 13:21 Baso # (Auto) 0.0 K/mm3 (0.0-0.1) 04/21/22 13:21 Add Manual Diff Complete 04/22/22 11:22 Total Counted 100 04/22/22 11:22 Seg Neutrophils % 86.3 % (40.0-70.0) H 04/21/22 13:21 Seg Neuts % (Manual) 82.0 % (40.0-70.0) H 04/22/22 11:22 Band Neutrophils % 6.0 % 04/22/22 11:22 Lymphocytes % (Manual) 6.0 % (13.4-35.0) L 04/22/22 11:22 Reactive Lymphs % (Man) 0 % 04/22/22 11:22 Monocytes % (Manual) 4.0 % (0.0-7.3) 04/22/22 11:22 Eosinophils % (Manual) 1.0 % (0.0-4.3) 04/22/22 11:22 Basophils % (Manual) 0 % (0.0-1.8) 04/22/22 11:22 Metamyelocytes % 1.0 % 04/22/22 11:22 Myelocytes % 0 % 04/22/22 11:22 Promyelocytes % 0 % 04/22/22 11:22 Blast Cells % 0 % 04/22/22 11:22 Nucleated RBC % Not Reportable 04/22/22 11:22 Seg Neutrophils # 6.0 K/mm3 (1.8-7.7) 04/21/22 13:21 Seg Neutrophils # Man 4.2 K/mm3 (1.8-7.7) 04/22/22 11:22 Band Neutrophils # 0.3 K/mm3 04/22/22 11:22 Lymphocytes # (Manual) 0.3 K/mm3 (1.2-5.4) L 04/22/22 11:22 Abs React Lymphs (Man) 0.0 K/mm3 04/22/22 11:22 Monocytes # (Manual) 0.2 K/mm3 (0.0-0.8) 04/22/22 11:22 Eosinophils # (Manual) 0.1 K/mm3 (0.0-0.4) 04/22/22 11:22 Basophils # (Manual) 0.0 K/mm3 (0.0-0.1) 04/22/22 11:22 Metamyelocytes # 0.1 K/mm3 04/22/22 11:22 Myelocytes # 0.0 K/mm3 04/22/22 11:22 Promyelocytes # 0.0 K/mm3 04/22/22 11:22 Blast Cells # 0.0 K/mm3 04/22/22 11:22 WBC Morphology Not Reportable 04/22/22 11:22 Hypersegmented Neuts Not Reportable 04/22/22 11:22 Hyposegmented Neuts Not Reportable 04/22/22 11:22 Hypogranular Neuts Not Reportable 04/22/22 11:22 Smudge Cells Not Reportable 04/22/22 11:22 Toxic Granulation Not Reportable 04/22/22 11:22 Toxic Vacuolation Not Reportable 04/22/22 11:22 Dohle Bodies Not Reportable 04/22/22 11:22 Pelger-Huet Anomaly Not Reportable 04/22/22 11:22 Benoit Rods Not Reportable 04/22/22 11:22 Platelet Estimate Consistent w auto 04/22/22 11:22 Clumped Platelets Not Reportable 04/22/22 11:22 Plt Clumps, EDTA Not Reportable 04/22/22 11:22 Large Platelets Not Reportable 04/22/22 11:22 Giant Platelets Not Reportable 04/22/22 11:22 Platelet Satelliting Not Reportable 04/22/22 11:22 Plt Morphology Comment Not Reportable 04/22/22 11:22 RBC Morphology Normal 04/22/22 11:22 Dimorphic RBCs Not Reportable 04/22/22 11:22 Polychromasia Not Reportable 04/22/22 11:22 Hypochromasia Not Reportable 04/22/22 11:22 Poikilocytosis Not Reportable 04/22/22 11:22 Anisocytosis Not Reportable 04/22/22 11:22 Microcytosis Not Reportable 04/22/22 11:22 Macrocytosis Not Reportable 04/22/22 11:22 Spherocytes Not Reportable 04/22/22 11:22 Pappenheimer Bodies Not Reportable 04/22/22 11:22 Sickle Cells Not Reportable 04/22/22 11:22 Target Cells Not Reportable 04/22/22 11:22 Tear Drop Cells Not Reportable 04/22/22 11:22 Ovalocytes Not Reportable 04/22/22 11:22 Helmet Cells Not Reportable 04/22/22 11:22 [place] Bodies Not Reportable 04/22/22 11:22 [place] Rings Not Reportable 04/22/22 11:22 [place] Cells Not Reportable 04/22/22 11:22 Bite Cells Not Reportable 04/22/22 11:22 Crenated Cell Not Reportable 04/22/22 11:22 Elliptocytes Not Reportable 04/22/22 11:22 Acanthocytes (Spur) Not Reportable 04/22/22 11:22 Rouleaux Not Reportable 04/22/22 11:22 Hemoglobin C Crystals Not Reportable 04/22/22 11:22 Schistocytes Not Reportable 04/22/22 11:22 Malaria parasites Not Reportable 04/22/22 11:22 James Bodies Not Reportable 04/22/22 11:22 Hem Pathologist Commnt No 04/22/22 11:22 PT 38.0 Sec. (12.2-14.9) H 04/22/22 19:58 INR 3.29 (0.87-1.13) H 04/22/22 19:58 APTT 236.4 Sec. (24.2-36.6) H* 04/22/22 19:58 Heparin Anti-Xa Level < 0.10 U.I./ml (0.3-0.7) L 04/24/22 06:00 ABG pH 7.078 pH Units (7.350-7.450) L* 04/24/22 05:45 ABG pCO2 61.3 mm Hg 04/24/22 05:45 ABG pO2 95.7 mm Hg (80.0-90.0) H 04/24/22 05:45 ABG HCO3 17.7 mmol/L (20.0-26.0) L 04/24/22 05:45 ABG O2 Saturation 94.4 % (95.0-99.0) L 04/24/22 05:45 ABG O2 Content 11.6 (0.0-44) 04/24/22 05:45 ABG Base Excess -12.0 mmol/L (-2.0-3.0) L 04/24/22 05:45 ABG Hemoglobin 8.7 gm/dl (14.0-18.0) L 04/24/22 05:45 ABG Carboxyhemoglobin 1.4 % (0.0-5.0) 04/24/22 05:45 ABG Methemoglobin 0.2 % (0.0-1.5) 04/24/22 05:45 VBG pH 7.265 (7.320-7.420) L 04/21/22 13:21 Oxyhemoglobin 92.9 % (95.0-99.0) L 04/24/22 05:45 FiO2 100 % 04/24/22 05:45 Sodium 154 mmol/L (137-145) H 04/24/22 06:00 Potassium 5.7 mmol/L (3.6-5.0) H 04/24/22 06:00 Chloride 115.4 mmol/L (98-107) H 04/24/22 06:00 Carbon Dioxide 17 mmol/L (22-30) L 04/24/22 06:00 Anion Gap 27 mmol/L 04/24/22 06:00 BUN 38 mg/dL (9-20) H 04/24/22 06:00 Creatinine 2.4 mg/dL (0.8-1.3) H 04/24/22 06:00 Estimated GFR 27 ml/min 04/24/22 06:00 BUN/Creatinine Ratio 16 % 04/24/22 06:00 Glucose 191 mg/dL (75-100) H 04/24/22 06:00 POC Glucose 100 mg/dL (70-105) 04/24/22 11:45 Hemoglobin A1c 15.4 % (4-6) H 04/22/22 09:34 Lactic Acid 11.60 mmol/L (0.7-2.0) H* 04/24/22 Unknown Calcium 6.5 mg/dL (8.4-10.2) L 04/24/22 06:00 Phosphorus 8.60 mg/dL (2.5-4.5) H 04/23/22 04:00 Magnesium 2.20 mg/dL (1.7-2.3) 04/23/22 04:00 Total Bilirubin 2.30 mg/dL (0.1-1.2) H 04/24/22 06:00 Direct Bilirubin 2.1 mg/dL (0-0.2) H 04/24/22 06:00 Indirect Bilirubin 0.2 mg/dL 04/24/22 06:00 AST 95589 units/L (5-40) H 04/24/22 06:00 ALT 5976 units/L (7-56) H 04/24/22 06:00 Alkaline Phosphatase 165 units/L (35-129) H 04/24/22 06:00 Ammonia 17.0 umol/L (25-60) L 04/21/22 13:21 Total Creatine Kinase 1942 units/L (55-170) H 04/23/22 10:46 CK-MB (CK-2) 106.7 ng/mL (0.0-4.0) H 04/23/22 10:46 CK-MB (CK-2) Rel Index 5.4 (0-4) H 04/23/22 10:46 Troponin T 2.840 ng/mL (0.00-0.029) H* D 04/23/22 10:46 Total Protein 3.4 g/dL (6.3-8.2) L D 04/24/22 06:00 Albumin 1.9 g/dL (3.9-5) L 04/24/22 06:00 Albumin/Globulin Ratio 1.3 % 04/24/22 06:00 Triglycerides 139 mg/dL (2-149) 04/21/22 13:21 Cholesterol 189 mg/dL (50-199) 04/21/22 13:21 LDL Cholesterol Direct 104 mg/dL (50-130) 04/21/22 13:21 HDL Cholesterol 47 mg/dL (40-59) 04/21/22 13:21 Cholesterol/HDL Ratio 4.02 % 04/21/22 13:21 TSH 3.310 mlU/mL (0.270-4.200) 04/21/22 13:21 Urine Color Straw (Yellow) 04/21/22 Unknown Urine Turbidity Clear (Clear) 04/21/22 Unknown Urine pH 5.0 (5.0-7.0) 04/21/22 Unknown Ur Specific [place] 1.020 (1.003-1.030) 04/21/22 Unknown Urine Protein 100 mg/dl mg/dL (Negative) 04/21/22 Unknown Urine Glucose (UA) 500 mg/dL (Negative) 04/21/22 Unknown Urine Ketones 160 mg/dL (Negative) 04/21/22 Unknown Urine Blood Trace (Negative) 04/21/22 Unknown Urine Nitrite Negative (Negative) 04/21/22 Unknown Ur Reducing Substances Not Reportable 04/21/22 Unknown Urine Bilirubin Negative (Negative) 04/21/22 Unknown Urine Ictotest Not Reportable 04/21/22 Unknown Urine Urobilinogen < 2.0 mg/dL (<2.0) 04/21/22 Unknown Ur Leukocyte Esterase Negative (Negative) 04/21/22 Unknown Urine WBC (Auto) 4.0 /HPF (0.0-6.0) 04/21/22 Unknown Urine RBC (Auto) 2.0 /HPF (0.0-6.0) 04/21/22 Unknown U Epithel Cells (Auto) 1.0 /HPF (0-13.0) 04/21/22 Unknown Urine Mucus Few /HPF 04/21/22 Unknown Salicylates < 0.3 mg/dL (2.8-20.0) L 04/21/22 13:21 Urine Opiates Screen Presumptive negative 04/21/22 13:38 Urine Methadone Screen Presumptive negative 04/21/22 13:38 Acetaminophen 5.0 ug/mL (10.0-30.0) L 04/21/22 13:21 Ur Barbiturates Screen Presumptive negative 04/21/22 13:38 Ur Phencyclidine Scrn Presumptive negative 04/21/22 13:38 Ur Amphetamines Screen Presumptive negative 04/21/22 13:38 U Benzodiazepines Scrn Presumptive negative 04/21/22 13:38 Urine Cocaine Screen Presumptive negative 04/21/22 13:38 U Marijuana (THC) Screen Presumptive negative 04/21/22 13:38 Drugs of Abuse Note Disclamer 04/21/22 13:38 Plasma/Serum Alcohol < 0.01 % (0-0.07) 04/21/22 13:21 Hepatitis A IgM Ab Non-reactive (NonReactive) 04/21/22 13:21 Hep Bs Antigen Non-reactive (Negative) 04/21/22 13:21 Hep B Core IgM Ab Non-reactive (NonReactive) 04/21/22 13:21 Hepatitis C Antibody Reactive (NonReactive) A 04/21/22 13:21 HIV 1&2 Antibody Rapid Non react (Non React) 04/22/22 13:21 HIV P24 Antigen Non react (Non React) 04/22/22 13:21 Microbiology: Microbiology 04/22/22 18:23 Tracheal Aspirate Sputum Culture - Preliminary 04/21/22 13:21 Peripheral/Venous Blood Culture - Preliminary NO GROWTH AFTER 48 HOURS 04/21/22 13:21 Peripheral/Venous Blood Culture - Preliminary NO GROWTH AFTER 48 HOURS 04/21/22 13:38 Urine,Clean Catch Urine Culture - Preliminary Gram Positive Cocci Stout/IV: Voiding Method Indwelling Catheter Active Medications - Current Medications Current Medications: Generic Name Dose Route Start Last Admin Trade Name Freq PRN Reason Stop Dose Admin Acetaminophen 650 mg 04/22/22 01:44 Acetaminophen 325 Mg Tab PO Q4H PRN Pain MILD(1-3)/Fever >100.5/KHAN Aspirin 300 mg 04/22/22 15:00 04/24/22 10:24 Aspirin 300 Mg Rect Supp CO Not Given QDAY ANALISA Dextrose 50 ml 04/23/22 09:12 Dextrose 50% In Water (25gm) 50 Ml Syringe IV Q30MIN PRN Hypoglycemia Protocol Dextrose 50 ml 04/24/22 11:30 04/24/22 11:47 Dextrose 50% In Water (25gm) 50 Ml Syringe IV 04/24/22 15:30 50 ml ONCE@1130 ANALISA Administration Famotidine 10 mg 04/24/22 22:00 Famotidine 20 Mg/2 Ml Inj IV BID ANALISA Hydrophilic Ointment 1 applic 04/22/22 20:12 Lip Therapy Vaseline TP Q2HR PRN Dry Lips NORepinephrine/NS 8 MG-250 ML 8 mg in 250 mls @ 9.375 mls/hr 04/22/22 17:00 04/24/22 06:06 Norepinephrine/Ns 8 Mg-250 Ml (Double Conc) IV 8 mcg/min TITRATE ANALISA 15 mls/hr Titration Protocol 5 MCG/MIN Dopamine HCl/Dextrose 800 mg in 250 mls @ 2.381 mls/hr 04/22/22 18:00 04/23/22 13:07 Dopamine 800 Mg/D5w 250ml IV 0 mcg/kg/min TITR ANALISA 0 mls/hr Titration Protocol 2 MCG/KG/MIN Vasopressin 20 unit/ Sodium 101 mls @ 9.09 mls/hr 04/22/22 18:00 04/24/22 03:37 Chloride IV 0.03 units/min TITR ANALISA 9.09 mls/hr Administration Protocol 0.03 UNITS/MIN Sodium Bicarbonate 150 meq/ 1,150 mls @ 125 mls/hr 04/23/22 13:00 04/24/22 09:34 Dextrose IV 125 mls/hr DIRECT ANALISA Administration Metronidazole 500 mg in 100 mls @ 100 mls/hr 04/23/22 15:00 04/24/22 03:36 Flagyl 500 Mg/100 Ml IV 100 mls/hr Q12H ANALISA Administration Protocol Phenylephrine HCl 100 mg/ 100 mls @ 3 mls/hr 04/23/22 19:00 04/23/22 22:20 Sodium Chloride IV 0 mcg/min TITR ANALISA 0 mls/hr Titration Protocol 50 MCG/MIN Cefepime HCl 2 gm in 100 mls @ 200 mls/hr 04/24/22 22:00 Cefepime/Ns 2 Gm/100 Ml IV Q24H [facility] Protocol Insulin Human Regular 0 units 04/23/22 12:00 04/24/22 11:52 Insulin Regular, Human 100 Units/1 Ml SUB-Q Not Given Q6H [facility] Protocol Insulin Human Regular 5 units 04/24/22 11:30 04/24/22 11:48 Insulin Regular, Human 100 Units/1 Ml IV 04/24/22 15:30 5 units ONCE@1130 ANALISA Administration Metoclopramide HCl 10 mg 04/22/22 01:44 Metoclopramide 10 Mg/2 Ml Inj IV Q6H PRN Nausea And Vomiting Multi-Ingred Cream/Lotion/Oil/Oint 1 applic 04/22/22 20:12 Mineral Oil/Petrolatum, White Ophth Oint 3.5 Gm OU Q4HR PRN Dry Eye(s) Ondansetron HCl 4 mg 04/22/22 01:44 Ondansetron 4 Mg/2 Ml Inj IV Q8H PRN Nausea And Vomiting Senna/Docusate Sodium 1 tab 04/22/22 22:00 04/24/22 11:48 Sennosides/Docusate Sodium 8.6/50 Mg Tab FEEDTUBE Not Given BID [facility] Sodium Bicarbonate 50 meq 04/24/22 11:30 04/24/22 11:53 Sodium Bicarb 8.4% 50 Meq/50 Ml Syringe IV 04/24/22 15:30 50 meq ONCE@1130 ANALISA Administration Sodium Chloride 10 ml 04/22/22 10:00 04/24/22 10:25 Sodium Chloride 0.9% 10 Ml Flush Syringe IV 10 ml BID ANALISA Administration Sodium Chloride 10 ml 04/22/22 01:44 Sodium Chloride 0.9% 10 Ml Flush Syringe IV PRN PRN LINE FLUSH Sodium Chloride 5 ml 04/22/22 20:12 Sodium Chloride 0.9% 500 Ml Ivpb IV DIRECT PRN [employer] REH[employer]ILITATION CLERK Sodium Polystyrene Sulfonate 30 gm 04/24/22 11:30 04/24/22 11:47 Sodium Polystyrene 15 Gm/60 Ml Oral Liqd PO 04/24/22 15:30 30 gm ONCE@1130 ANALISA Administration Nutrition/Malnutrition Assess - Dietary Evaluation Nutrition/Malnutrition Findings: Nutrition Notes Start: 04/22/22 09:41 Freq: Status: Active Protocol: Document 04/23/22 09:50 VIK (Rec: 04/23/22 10:35 VIK [id number]) Nutrition Notes Initial or Follow up Reassessment Current Diagnosis Diabetes,Respiratory Failure, Malnutrition,Stroke Other Pertinent Diagnosis DKA, s/p PEA w/ROSC x3, Metabolic Encephalopatrhy/ Acidosis, Hepatitis C, .. Current Diet NPO (since 04/21 12:55), TF- Vital AF 1.2 Shimon @ 65 ml/hr( from L 04/23). Labs/Tests 04/23: Na 150, K 5.9, Cl 116.7 , CO2 14, BUN 29, Glu 117, Ca 7.6, Phos 8.6. Pertinent Medications 04/23: D5/0.45ns @ 125ml/hr, Vasopressin 20U, others nutritionally unremarkable. 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 No body weight change reported in 1 day. Weight Status Appropriate Subjective/Other Information RD consult for write/managhe TF. Pt on NPO since admission. Pt is on Mechanical Ventilation, O2 saturation @ 95%, according to Physical Assessment History notes. Pt has caries and missing teeth, according to Physical Assessment History notes. Pt shows bilateral-LE Pitting Edema 2+, according to Physical Assessment History notes. Code BLUE was called on 04/22, Pt went on Cardio/pulmonary arrest x 3, Pt was intubated, according to Event notes. Procedure on 04/22: R-IJV VasCath placement, well tolerated, according to Procedure notes. Pt shows unspecified bruises as signs of concern for skin risk at the time, according to Physical Assessment History notes. Percent of energy/protein needs met: Pt on NPO since admission. Prescribed TF-Vital AF 1.2 Shimon @ 65 ml/hr provides for energy/protein needs (1,860 Kcal/116 g) during LOS, 101% Kcal; 100% AA. Burn Absent Trauma Absent GI Symptoms None Food Allergy No Skin Integrity/Comment Unspecified bruises. 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 As Evidenced by Signs and Symptoms Pt currently on NPO. Is patient on ventilator? Yes Is Patient Ambulatory and/or Out of Bed No REE-([facility]-confined to bed) 1673.004 Kcal/Kg value to use for calculation 29 Approximate Energy Requirements Using 1842 kcal/Kg Calculation Used for Recommendations Kcal/kg Additional Notes Protein: 1.2-2 g/Kg ABW; 77- 128 g/day. Fluids: 1 ml/Kcal, or as per MD. Nutrition Intervention Nutrition Support: Start TF-Vital AF 1.2 Shimon @ 65 ml/hr. Flush: 100 ml wayer Q 4 hr, or as per MD. Kcal 1,860 Protein (gm) 116 Carbohydrates (gm) 171 Fat (gm) 84 Fluid (mL) 1,257 Fiber (gm) 8 % RDI: 101% Kcal; 100% AA. Goal #1 Provide at least 75% of energy /protein needs through Enteral Feeding during LOS. Follow-Up By: 04/25/22 Additional Comments Start monitoring TF tolerance and BM. <REYNALDO CAMARGO - Last Filed: 04/25/22 07:41> Assessment and Plan Assessment and plan: I saw and evaluated the patient. I agree with the findings and the plan of care as documented in the Nurse Practitioner's~note, with the following corrections and additions. Hospitalist Physical - Constitutional Vitals: Temp Pulse Resp BP Pulse Ox 96.0 F L 140 H 28 H 90/49 75 L 04/25/22 04:00 04/25/22 06:30 04/25/22 06:30 04/25/22 06:30 04/25/22 05:30 HEART Score - HEART Score Troponin: Troponin T 2.840 ng/mL (0.00-0.029) H* D 04/23/22 10:46 Results - Labs CBC & Chem 7: 04/25/22 03:40 04/25/22 03:40 Labs: Laboratory Last Values WBC 7.1 K/mm3 (4.5-11.0) 04/25/22 03:40 RBC 2.89 M/mm3 (3.65-5.03) L 04/25/22 03:40 Hgb 9.1 gm/dl (11.8-15.2) L 04/25/22 03:40 Hct 29.9 % (35.5-45.6) L 04/25/22 03:40 MCV 103 fl (84-94) H 04/25/22 03:40 MCH 31 pg (28-32) 04/25/22 03:40 MCHC 30 % (32-34) L 04/25/22 03:40 RDW 19.6 % (13.2-15.2) H 04/25/22 03:40 Plt Count 46 K/mm3 (140-440) L 04/25/22 03:40 Lymph % (Auto) 5.7 % (13.4-35.0) L 04/21/22 13:21 [place] % (Auto) 7.9 % (0.0-7.3) H 04/21/22 13:21 Eos % (Auto) 0.0 % (0.0-4.3) 04/21/22 13:21 Baso % (Auto) 0.1 % (0.0-1.8) 04/21/22 13:21 Lymph # (Auto) 0.4 K/mm3 (1.2-5.4) L 04/21/22 13:21 [place] # (Auto) 0.5 K/mm3 (0.0-0.8) 04/21/22 13:21 Eos # (Auto) 0.0 K/mm3 (0.0-0.4) 04/21/22 13:21 Baso # (Auto) 0.0 K/mm3 (0.0-0.1) 04/21/22 13:21 Add Manual Diff Complete 04/22/22 11:22 Total Counted 100 04/22/22 11:22 Seg Neutrophils % 86.3 % (40.0-70.0) H 04/21/22 13: Seg Neuts % (Manual) 82.0 % (40.0-70.0) H 04/22/22 11:22 Band Neutrophils % 6.0 % 04/22/22 11:22 Lymphocytes % (Manual) 6.0 % (13.4-35.0) L 04/22/22 11:22 Reactive Lymphs % (Man) 0 % 04/22/22 11:22 Monocytes % (Manual) 4.0 % (0.0-7.3) 04/22/22 11:22 Eosinophils % (Manual) 1.0 % (0.0-4.3) 04/22/22 11:22 Basophils % (Manual) 0 % (0.0-1.8) 04/22/22 11:22 Metamyelocytes % 1.0 % 04/22/22 11:22 Myelocytes % 0 % 04/22/22 11:22 Promyelocytes % 0 % 04/22/22 11:22 Blast Cells % 0 % 04/22/22 11:22 Nucleated RBC % Not Reportable 04/22/22 11:22 Seg Neutrophils # 6.0 K/mm3 (1.8-7.7) 04/21/22 13:21 Seg Neutrophils # Man 4.2 K/mm3 (1.8-7.7) 04/22/22 11:22 Band Neutrophils # 0.3 K/mm3 04/22/22 11:22 Lymphocytes # (Manual) 0.3 K/mm3 (1.2-5.4) L 04/22/22 11:22 Abs React Lymphs (Man) 0.0 K/mm3 04/22/22 11:22 Monocytes # (Manual) 0.2 K/mm3 (0.0-0.8) 04/22/22 11:22 Eosinophils # (Manual) 0.1 K/mm3 (0.0-0.4) 04/22/22 11:22 Basophils # (Manual) 0.0 K/mm3 (0.0-0.1) 04/22/22 11:22 Metamyelocytes # 0.1 K/mm3 04/22/22 11:22 Myelocytes # 0.0 K/mm3 04/22/22 11:22 Promyelocytes # 0.0 K/mm3 04/22/22 11:22 Blast Cells # 0.0 K/mm3 04/22/22 11:22 WBC Morphology Not Reportable 04/22/22 11:22 Hypersegmented Neuts Not Reportable 04/22/22 11:22 Hyposegmented Neuts Not Reportable 04/22/22 11:22 Hypogranular Neuts Not Reportable 04/22/22 11:22 Smudge Cells Not Reportable 04/22/22 11:22 Toxic Granulation Not Reportable 04/22/22 11:22 Toxic Vacuolation Not Reportable 04/22/22 11:22 Dohle Bodies Not Reportable 04/22/22 11:22 Pelger-Huet Anomaly Not Reportable 04/22/22 11:22 Benoit Rods Not Reportable 04/22/22 11:22 Platelet Estimate Consistent w auto 04/22/22 11:22 Clumped Platelets Not Reportable 04/22/22 11:22 Plt Clumps, EDTA Not Reportable 04/22/22 11:22 Large Platelets Not Reportable 04/22/22 11:22 Giant Platelets Not Reportable 04/22/22 11:22 Platelet Satelliting Not Reportable 04/22/22 11:22 Plt Morphology Comment Not Reportable 04/22/22 11:22 RBC Morphology Normal 04/22/22 11:22 Dimorphic RBCs Not Reportable 04/22/22 11:22 Polychromasia Not Reportable 04/22/22 11:22 Hypochromasia Not Reportable 04/22/22 11:22 Poikilocytosis Not Reportable 04/22/22 11:22 Anisocytosis Not Reportable 04/22/22 11:22 Microcytosis Not Reportable 04/22/22 11:22 Macrocytosis Not Reportable 04/22/22 11:22 Spherocytes Not Reportable 04/22/22 11:22 Pappenheimer Bodies Not Reportable 04/22/22 11:22 Sickle Cells Not Reportable 04/22/22 11:22 Target Cells Not Reportable 04/22/22 11:22 Tear Drop Cells Not Reportable 04/22/22 11:22 Ovalocytes Not Reportable 04/22/22 11:22 Helmet Cells Not Reportable 04/22/22 11:22 [place] Bodies Not Reportable 04/22/22 11:22 [place] Rings Not Reportable 04/22/22 11:22 [place] Cells Not Reportable 04/22/22 11:22 Bite Cells Not Reportable 04/22/22 11:22 Crenated Cell Not Reportable 04/22/22 11:22 Elliptocytes Not Reportable 04/22/22 11:22 Acanthocytes (Spur) Not Reportable 04/22/22 11:22 Rouleaux Not Reportable 04/22/22 11:22 Hemoglobin C Crystals Not Reportable 04/22/22 11:22 Schistocytes Not Reportable 04/22/22 11:22 Malaria parasites Not Reportable 04/22/22 11:22 James Bodies Not Reportable 04/22/22 11:22 Hem Pathologist Commnt No 04/22/22 11:22 PT 38.0 Sec. (12.2-14.9) H 04/22/22 19:58 INR 3.29 (0.87-1.13) H 04/22/22 19:58 APTT 236.4 Sec. (24.2-36.6) H* 04/22/22 19:58 Heparin Anti-Xa Level < 0.10 U.I./ml (0.3-0.7) L 04/24/22 06:00 ABG pH 7.167 pH Units (7.350-7.450) L* 04/25/22 03:15 ABG pCO2 40.9 mm Hg 04/25/22 03:15 ABG pO2 95.3 mm Hg (80.0-90.0) H 04/25/22 03:15 ABG HCO3 14.5 mmol/L (20.0-26.0) L 04/25/22 03:15 ABG O2 Saturation 95.4 % (95.0-99.0) 04/25/22 03:15 ABG O2 Content 11.5 (0.0-44) 04/25/22 03:15 ABG Base Excess -13.2 mmol/L (-2.0-3.0) L 04/25/22 03:15 ABG Hemoglobin 8.5 gm/dl (14.0-18.0) L 04/25/22 03:15 ABG Carboxyhemoglobin 1.2 % (0.0-5.0) 04/25/22 03:15 ABG Methemoglobin 0.1 % (0.0-1.5) 04/25/22 03:15 VBG pH 7.265 (7.320-7.420) L 04/21/22 13:21 Oxyhemoglobin 94.1 % (95.0-99.0) L 04/25/22 03:15 FiO2 90 % 04/25/22 03:15 Sodium 157 mmol/L (137-145) H 04/25/22 03:40 Potassium 5.1 mmol/L (3.6-5.0) H 04/25/22 03:40 Chloride 108.9 mmol/L (98-107) H 04/25/22 03:40 Carbon Dioxide 12 mmol/L (22-30) L 04/25/22 03:40 Anion Gap 41 mmol/L 04/25/22 03:40 BUN 43 mg/dL (9-20) H 04/25/22 03:40 Creatinine 3.1 mg/dL (0.8-1.3) H 04/25/22 03:40 Estimated GFR 20 ml/min 04/25/22 03:40 BUN/Creatinine Ratio 14 % 04/25/22 03:40 Glucose 164 mg/dL (75-100) H 04/25/22 03:40 POC Glucose 153 mg/dL (70-105) H 04/25/22 05:14 Hemoglobin A1c 15.4 % (4-6) H 04/22/22 09:34 Lactic Acid 11.60 mmol/L (0.7-2.0) H* 04/24/22 Unknown Calcium 6.0 mg/dL (8.4-10.2) L 04/25/22 03:40 Phosphorus 8.90 mg/dL (2.5-4.5) H 04/25/22 03:40 Magnesium 2.10 mg/dL (1.7-2.3) 04/25/22 03:40 Total Bilirubin 3.00 mg/dL (0.1-1.2) H 04/25/22 03:40 Direct Bilirubin 2.1 mg/dL (0-0.2) H 04/24/22 06:00 Indirect Bilirubin 0.2 mg/dL 04/24/22 06:00 AST 80683 units/L (5-40) H 04/25/22 03:40 ALT 4800 units/L (7-56) H 04/25/22 03:40 Alkaline Phosphatase 205 units/L (35-129) H 04/25/22 03:40 Ammonia 17.0 umol/L (25-60) L 04/21/22 13:21 Total Creatine Kinase 1942 units/L (55-170) H 04/23/22 10:46 CK-MB (CK-2) 106.7 ng/mL (0.0-4.0) H 04/23/22 10:46 CK-MB (CK-2) Rel Index 5.4 (0-4) H 04/23/22 10:46 Troponin T 2.840 ng/mL (0.00-0.029) H* D 04/23/22 10:46 Total Protein 3.1 g/dL (6.3-8.2) L 04/25/22 03:40 Albumin 1.7 g/dL (3.9-5) L 04/25/22 03:40 Albumin/Globulin Ratio 1.2 % 04/25/22 03:40 Triglycerides 139 mg/dL (2-149) 04/21/22 13:21 Cholesterol 189 mg/dL (50-199) 04/21/22 13:21 LDL Cholesterol Direct 104 mg/dL (50-130) 04/21/22 13:21 HDL Cholesterol 47 mg/dL (40-59) 04/21/22 13:21 Cholesterol/HDL Ratio 4.02 % 04/21/22 13:21 TSH 3.310 mlU/mL (0.270-4.200) 04/21/22 13:21 Urine Color Straw (Yellow) 04/21/22 Unknown Urine Turbidity Clear (Clear) 04/21/22 Unknown Urine pH 5.0 (5.0-7.0) 04/21/22 Unknown Ur Specific [place] 1.020 (1.003-1.030) 04/21/22 Unknown Urine Protein 100 mg/dl mg/dL (Negative) 04/21/22 Unknown Urine Glucose (UA) 500 mg/dL (Negative) 04/21/22 Unknown Urine Ketones 160 mg/dL (Negative) 04/21/22 Unknown Urine Blood Trace (Negative) 04/21/22 Unknown Urine Nitrite Negative (Negative) 04/21/22 Unknown Ur Reducing Substances Not Reportable 04/21/22 Unknown Urine Bilirubin Negative (Negative) 04/21/22 Unknown Urine Ictotest Not Reportable 04/21/22 Unknown Urine Urobilinogen < 2.0 mg/dL (<2.0) 04/21/22 Unknown Ur Leukocyte Esterase Negative (Negative) 04/21/22 Unknown Urine WBC (Auto) 4.0 /HPF (0.0-6.0) 04/21/22 Unknown Urine RBC (Auto) 2.0 /HPF (0.0-6.0) 04/21/22 Unknown U Epithel Cells (Auto) 1.0 /HPF (0-13.0) 04/21/22 Unknown Urine Mucus Few /HPF 04/21/22 Unknown Salicylates < 0.3 mg/dL (2.8-20.0) L 04/21/22 13:21 Urine Opiates Screen Presumptive negative 04/21/22 13:38 Urine Methadone Screen Presumptive negative 04/21/22 13:38 Acetaminophen 5.0 ug/mL (10.0-30.0) L 04/21/22 13:21 Ur Barbiturates Screen Presumptive negative 04/21/22 13:38 Ur Phencyclidine Scrn Presumptive negative 04/21/22 13:38 Ur Amphetamines Screen Presumptive negative 04/21/22 13:38 U Benzodiazepines Scrn Presumptive negative 04/21/22 13:38 Urine Cocaine Screen Presumptive negative 04/21/22 13:38 U Marijuana (THC) Screen Presumptive negative 04/21/22 13:38 Drugs of Abuse Note Disclamer 04/21/22 13:38 Plasma/Serum Alcohol < 0.01 % (0-0.07) 04/21/22 13:21 Hepatitis A IgM Ab Non-reactive (NonReactive) 04/21/22 13:21 Hep Bs Antigen Non-reactive (Negative) 04/21/22 13:21 Hep B Core IgM Ab Non-reactive (NonReactive) 04/21/22 13:21 Hepatitis C Antibody Reactive (NonReactive) A 04/21/22 13:21 HIV 1&2 Antibody Rapid Non react (Non React) 04/22/22 13:21 HIV P24 Antigen Non react (Non React) 04/22/22 13:21 Microbiology: Microbiology 04/21/22 13:21 Peripheral/Venous Blood Culture - Preliminary NO GROWTH AFTER 72 HOURS 04/21/22 13:21 Peripheral/Venous Blood Culture - Preliminary NO GROWTH AFTER 72 HOURS 04/22/22 18:23 Tracheal Aspirate Sputum Culture - Preliminary 04/21/22 13:38 Urine,Clean Catch Urine Culture - Final Enterococcus Faecalis Stout/IV: Voiding Method Indwelling Catheter Active Medications - Current Medications Current Medications: Generic Name Dose Route Start Last Admin Trade Name Freq PRN Reason Stop Dose Admin Acetaminophen 650 mg 04/22/22 01:44 Acetaminophen 325 Mg Tab PO Q4H PRN Pain MILD(1-3)/Fever >100.5/KHAN Aspirin 300 mg 04/22/22 15:00 04/24/22 10:24 Aspirin 300 Mg Rect Supp CO Not Given QDAY ANALISA Dextrose 50 ml 04/23/22 09:12 Dextrose 50% In Water (25gm) 50 Ml Syringe IV Q30MIN PRN Hypoglycemia Protocol Famotidine 10 mg 04/24/22 22:00 04/24/22 21:00 Famotidine 20 Mg/2 Ml Inj IV 10 mg BID ANALISA Administration Hydrophilic Ointment 1 applic 04/22/22 20:12 Lip Therapy Vaseline TP Q2HR PRN Dry Lips NORepinephrine/NS 8 MG-250 ML 8 mg in 250 mls @ 9.375 mls/hr 04/22/22 17:00 04/24/22 19:48 Norepinephrine/Ns 8 Mg-250 Ml (Double Conc) IV 8 mcg/min TITRATE ANALISA 15 mls/hr Titration Protocol 5 MCG/MIN Dopamine HCl/Dextrose 800 mg in 250 mls @ 2.381 mls/hr 04/22/22 18:00 04/23/22 13:07 Dopamine 800 Mg/D5w 250ml IV 0 mcg/kg/min TITR ANALISA 0 mls/hr Titration Protocol 2 MCG/KG/MIN Vasopressin 20 unit/ Sodium 101 mls @ 9.09 mls/hr 04/22/22 18:00 04/25/22 02:52 Chloride IV 0.03 units/min TITR ANALISA 9.09 mls/hr Administration Protocol 0.03 UNITS/MIN Sodium Bicarbonate 150 meq/ 1,150 mls @ 125 mls/hr 04/23/22 13:00 04/25/22 04:26 Dextrose IV 125 mls/hr DIRECT ANALISA Administration Metronidazole 500 mg in 100 mls @ 100 mls/hr 04/23/22 15:00 04/25/22 04:25 Flagyl 500 Mg/100 Ml IV 100 mls/hr Q12H ANALISA Administration Protocol Phenylephrine HCl 100 mg/ 100 mls @ 3 mls/hr 04/23/22 19:00 04/23/22 22:20 Sodium Chloride IV 0 mcg/min TITR ANALISA 0 mls/hr Titration Protocol 50 MCG/MIN Cefepime HCl 2 gm in 100 mls @ 200 mls/hr 04/24/22 22:00 04/24/22 21:11 Cefepime/Ns 2 Gm/100 Ml IV 200 mls/hr Q24H ANALISA Administration Protocol Insulin Human Regular 0 units 04/23/22 12:00 04/25/22 05:19 Insulin Regular, Human 100 Units/1 Ml SUB-Q 2 units Q6H [facility] Administration Protocol Metoclopramide HCl 10 mg 04/22/22 01:44 Metoclopramide 10 Mg/2 Ml Inj IV Q6H PRN Nausea And Vomiting Multi-Ingred Cream/Lotion/Oil/Oint 1 applic 04/22/22 20:12 Mineral Oil/Petrolatum, White Ophth Oint 3.5 Gm OU Q4HR PRN Dry Eye(s) Ondansetron HCl 4 mg 04/22/22 01:44 Ondansetron 4 Mg/2 Ml Inj IV Q8H PRN Nausea And Vomiting Senna/Docusate Sodium 1 tab 04/22/22 22:00 04/24/22 21:12 Sennosides/Docusate Sodium 8.6/50 Mg Tab FEEDTUBE Not Given BID ANALISA Sodium Chloride 10 ml 04/22/22 10:00 04/24/22 21:01 Sodium Chloride 0.9% 10 Ml Flush Syringe IV 10 ml BID ANALISA Administration Sodium Chloride 10 ml 04/22/22 01:44 Sodium Chloride 0.9% 10 Ml Flush Syringe IV PRN PRN LINE FLUSH Sodium Chloride 5 ml 04/22/22 20:12 Sodium Chloride 0.9% 500 Ml Ivpb 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 Current Diet NPO (since 04/21 12:55), TF- Vital AF 1.2 Shimon @ 65 ml/hr( from L 04/23). Labs/Tests 04/23: Na 150, K 5.9, Cl 116.7 , CO2 14, BUN 29, Glu 117, Ca 7.6, Phos 8.6. Pertinent Medications 04/23: D5/0.45ns @ 125ml/hr, Vasopressin 20U, others nutritionally unremarkable. 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 No body weight change reported in 1 day. Weight Status Appropriate Subjective/Other Information RD consult for write/managhe TF. Pt on NPO since admission. Pt is on Mechanical Ventilation, O2 saturation @ 95%, according to Physical Assessment History notes. Pt has caries and missing teeth, according to Physical Assessment History notes. Pt shows bilateral-LE Pitting Edema 2+, according to Physical Assessment History notes. Code BLUE was called on 04/22, Pt went on Cardio/pulmonary arrest x 3, Pt was intubated, according to Event notes. Procedure on 04/22: R-IJV VasCath placement, well tolerated, according to Procedure notes. Pt shows unspecified bruises as signs of concern for skin risk at the time, according to Physical Assessment History notes. Percent of energy/protein needs met: Pt on NPO since admission. Prescribed TF-Vital AF 1.2 Shimon @ 65 ml/hr provides for energy/protein needs (1,860 Kcal/116 g) during LOS, 101% Kcal; 100% AA. Burn Absent Trauma Absent GI Symptoms None Food Allergy No Skin Integrity/Comment Unspecified bruises. 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 As Evidenced by Signs and Symptoms Pt currently on NPO. Is patient on ventilator? Yes Is Patient Ambulatory and/or Out of Bed No REE-([facility] Jeco-confined to bed) 1673.004 Kcal/Kg value to use for calculation 29 Approximate Energy Requirements Using 1842 kcal/Kg Calculation Used for Recommendations Kcal/kg Additional Notes Protein: 1.2-2 g/Kg ABW; 77- 128 g/day. Fluids: 1 ml/Kcal, or as per MD. Nutrition Intervention Nutrition Support: Start TF-Vital AF 1.2 Shimon @ 65 ml/hr. Flush: 100 ml wayer Q 4 hr, or as per MD. Kcal 1,860 Protein (gm) 116 Carbohydrates (gm) 171 Fat (gm) 84 Fluid (mL) 1,257 Fiber (gm) 8 % RDI: 101% Kcal; 100% AA. Goal #1 Provide at least 75% of energy /protein needs through Enteral Feeding during LOS. Follow-Up By: 04/25/22 Additional Comments Start monitoring TF tolerance and BM.
--- NOTE | 2022-04-24 20:32 | Consultation ---
History of Present Illness - Reason for Consult Consult date: 04/24/22 acute renal failure, metabolic acidosis - History of Present Illness This is a 66-year-old man who presented with acute encephalopathy and was admitted to the ICU. Nephrology was consulted for acute kidney injury and acidosis. History has been obtained from chart as patient is sedated and intubated. Past History Past Medical History: atrial fib, heart failure Past Surgical History: Other (unalbe to obtain due to loc;) Social history: other (unable to obtain due to loc;) Family history: other (unable to obtain due to loc;) Medications and Allergies Allergies Allergy/AdvReac Type Severity Reaction Status Date / Time No Known Allergies Allergy Verified 04/21/22 14:19 Home Medications Medication Instructions Recorded Confirmed Last Taken Type Baclofen 20 mg PO Q12H PRN #20 tab 04/17/22 Unknown Rx Naproxen 500 mg PO Q12H PRN #30 tab 04/17/22 Unknown Rx metFORMIN [Glucophage] 500 mg PO Q12H #60 tab 04/17/22 Unknown Rx Active Meds: Active Medications Acetaminophen (Acetaminophen 325 Mg Tab) 650 mg PO Q4H PRN PRN Reason: Pain MILD(1-3)/Fever >100.5/KHAN Aspirin (Aspirin 300 Mg Rect Supp) 300 mg IN QDAY ANALISA Last Admin: 04/24/22 10:24 Dose: Not Given Dextrose (Dextrose 50% In Water (25gm) 50 Ml Syringe) 50 ml IV Q30MIN PRN; Protocol PRN Reason: Hypoglycemia Famotidine (Famotidine 20 Mg/2 Ml Inj) 10 mg IV BID ANALISA Hydrophilic Ointment (Lip Therapy Vaseline) 1 applic TP Q2HR PRN PRN Reason: Dry Lips NORepinephrine/NS 8 MG-250 ML (Norepinephrine/Ns 8 Mg-250 Ml (Double Conc)) 8 mg in 250 mls @ 9.375 mls/hr IV TITRATE ANALISA; Protocol Last Admin: 04/24/22 19:44 Dose: 8 mcg/min, 15 mls/hr Dopamine HCl/Dextrose (Dopamine 800 Mg/D5w 250ml) 800 mg in 250 mls @ 2.381 mls/hr IV TITR ANALISA; Protocol Last Titration: 04/23/22 13:07 Dose: 0 mcg/kg/min, 0 mls/hr Vasopressin 20 unit/ Sodium (Chloride) 101 mls @ 9.09 mls/hr IV TITR ANALISA; Protocol Last Admin: 04/24/22 16:04 Dose: 0.03 units/min, 9.09 mls/hr Sodium Bicarbonate 150 meq/ (Dextrose) 1,150 mls @ 125 mls/hr IV DIRECT ANALISA Last Admin: 04/24/22 19:06 Dose: 125 mls/hr Metronidazole (Flagyl 500 Mg/100 Ml) 500 mg in 100 mls @ 100 mls/hr IV Q12H ANALISA; Protocol Last Admin: 04/24/22 15:30 Dose: 100 mls/hr Phenylephrine HCl 100 mg/ (Sodium Chloride) 100 mls @ 3 mls/hr IV TITR ANALISA; Protocol Last Titration: 04/23/22 22:20 Dose: 0 mcg/min, 0 mls/hr Cefepime HCl (Cefepime/Ns 2 Gm/100 Ml) 2 gm in 100 mls @ 200 mls/hr IV Q24H ANALISA; Protocol Insulin Human Regular (Insulin Regular, Human 100 Units/1 Ml) 0 units SUB-Q Q6H ANALISA; Protocol Last Admin: 04/24/22 17:44 Dose: Not Given Metoclopramide HCl (Metoclopramide 10 Mg/2 Ml Inj) 10 mg IV Q6H PRN PRN Reason: Nausea And Vomiting Multi-Ingred Cream/Lotion/Oil/Oint (Mineral Oil/Petrolatum, White Ophth Oint 3.5 Gm) 1 applic OU Q4HR PRN PRN Reason: Dry Eye(s) Ondansetron HCl (Ondansetron 4 Mg/2 Ml Inj) 4 mg IV Q8H PRN PRN Reason: Nausea And Vomiting Senna/Docusate Sodium (Sennosides/Docusate Sodium 8.6/50 Mg Tab) 1 tab FEEDTUBE BID [facility] Last Admin: 04/24/22 11:48 Dose: Not Given Sodium Chloride (Sodium Chloride 0.9% 10 Ml Flush Syringe) 10 ml IV BID [facility] Last Admin: 04/24/22 10:25 Dose: 10 ml Sodium Chloride (Sodium Chloride 0.9% 10 Ml Flush Syringe) 10 ml IV PRN PRN PRN Reason: LINE FLUSH Sodium Chloride (Sodium Chloride 0.9% 500 Ml Ivpb) 5 ml IV 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 Intubated. HEENT: Oral mucosa moist Neck: Supple, no JVD Chest: RRR Heart: Intubated Abdomen: Soft, nontender, no renal bruit Extremity: No peripheral cyanosis, edema Neurological: Sedated Dermatology: No skin rash Psych: Unable to assess Musculoskeletal: No joint effusion Results - Lab Results 04/24/22 06:00 04/24/22 06:00 Most recent lab results ABG pH 7.078 pH Units (7.350-7.450) L* 04/24/22 05:45 ABG pCO2 61.3 mm Hg 04/24/22 05:45 ABG pO2 95.7 mm Hg (80.0-90.0) H 04/24/22 05:45 ABG HCO3 17.7 mmol/L (20.0-26.0) L 04/24/22 05:45 ABG O2 Saturation 94.4 % (95.0-99.0) L 04/24/22 05:45 Calcium 6.5 mg/dL (8.4-10.2) L 04/24/22 06:00 Phosphorus 8.60 mg/dL (2.5-4.5) H 04/23/22 04:00 Magnesium 2.20 mg/dL (1.7-2.3) 04/23/22 04:00 Assessment and Plan Acute kidney injury Hyperkalemia Hypernatremia Mixed metabolic and respiratory acidosis Acute hypoxic and hypercapnic respiratory failure Shock Shock liver No immediate indication for dialysis Continue IV bicarb fluids Kayexalate 1 Thiamine X 1 Keep MAP > 65, vasopressors prn Vent management as per primary Renally dose medications Avoid nephrotoxins Strict I/O Prognosis is guarded
[2022-04-24] MEDS ORDERED: THIAMINE 100 MG in SODIUM CHLORIDE 0.9% 50 ML IV ONE (22:00)
[2022-04-24] MEDS ORDERED: CEFEPIME/NS 2 GM/100 ML 2 GM/100 ML BAG IV SCH (22:00)
[2022-04-25] MEDS: INSULIN REGULAR, HUMAN 100 UNITS/1 ML SUB-Q SCH ×3 (00:14→12:35)
[2022-04-25] MEDS: FREE WATER PO SCH ×3 (02:00→11:02)
[2022-04-25] MEDS: VASOPRESSIN 20 UNIT in SODIUM CHLORIDE 0.9% 100 ML IV SCH (02:52)
[2022-04-25 03:43] LABS: ABG Base Excess -13.2 mmol/L (-2.0-3.0); ABG HCO3 14.5 mmol/L (20.0-26.0); ABG Methemoglobin 0.1 % (0.0-1.5); ABG Oxygen Saturation 95.4 % (95.0-99.0); ABG PCO2 40.9 mm Hg; ABG PO2 95.3 mm Hg (80.0-90.0)
[2022-04-25 03:51] LABS: Hematocrit 29.9 % (35.5-45.6); Hemoglobin 9.1 gm/dl (11.8-15.2); Mean Corpuscular HGB Conc 30 % (32-34); Mean Corpuscular Volume 103 fl (84-94); Red Blood Count 2.89 M/mm3 (3.65-5.03); Red Cell Distribution Width 19.6 % (13.2-15.2)
[2022-04-25 03:59] LABS: ABG PH 7.167 pH Units (7.350-7.450)
[2022-04-25 03:59] LABS: Platelet Count 46 K/mm3 (140-440)
[2022-04-25] MEDS ORDERED: SODIUM BICARB 8.4% 50 MEQ/50 ML SYRINGE IV ONE (04:07)
[2022-04-25] MEDS: metroNIDAZOLE/NS 500 MG/100 ML 500 MG/100 ML BAG IV SCH (04:25)
[2022-04-25] MEDS: SODIUM BICARBONATE 150 MEQ in DEXTROSE 5% IN WATER 1,000 ML IV SCH ×2 (04:26→13:36)
[2022-04-25 04:44] LABS: Albumin 1.7 g/dL (3.9-5)
--- NOTE | 2022-04-25 04:47 | XRay Report ---
CHEST 1 VIEW 04/25/2022 3:36 AM INDICATION / CLINICAL INFORMATION: follow up respiratory failure. COMPARISON: 04/24/2022 FINDINGS: SUPPORT DEVICES: ET tube is 7.3 cm above the kody. NG tube extends within the stomach HEART / MEDIASTINUM: No significant abnormality. LUNGS / PLEURA: Diffuse opacity in the right suprahilar region extending to the right upper lung whic h is increased since prior exam No pneumothorax. ADDITIONAL FINDINGS: No significant additional findings. IMPRESSION: 1. Right hilar/suprahilar opacity extending into the right upper lung. Follow-up to document clearing and exclude underlying adenopathy or mass. Signer Name: Forest Hall MD Signed: 04/25/2022 4:43 AM Workstation Name: [id number]
--- NOTE | 2022-04-25 09:02 | Progress Note ---
Assessment and Plan Acute kidney injury Hyperkalemia Hypernatremia Mixed metabolic and respiratory acidosis Acute hypoxic and hypercapnic respiratory failure Shock Shock liver Cardiac arrest Transitioned to comfort care Not a candidate for HD due to MAP/ hemodynamically unstable despite multiple vasopressors S/p IV bicarb push x 2 S/p IV bicarb fluids Kayexalate 1 Thiamine X 1 Cardiology and primary note reviewed Subjective Date of service: 04/25/22 Principal diagnosis: Anoxic encephalopathy Interval history: Made comfort care this afternoon. Objective - Vital Signs Vital signs: Vital Signs - 12hr 04/24/22 04/24/22 04/24/22 21:16 21:30 21:46 Temperature Pulse Rate 110 H 115 H 116 H Respiratory 28 H 28 H 28 H Rate Blood Pressure 90/49 90/49 90/49 O2 Sat by Pulse 94 95 Oximetry 04/24/22 04/24/22 04/24/22 22:00 22:16 22:30 Temperature Pulse Rate 121 H 100 H 83 Respiratory 28 H 28 H 28 H Rate Blood Pressure 90/49 90/49 90/49 O2 Sat by Pulse 95 95 98 Oximetry 04/24/22 04/24/22 04/24/22 22:46 23:00 23:16 Temperature Pulse Rate 92 H 110 H 119 H Respiratory 28 H 28 H 28 H Rate Blood Pressure 90/49 90/49 90/49 O2 Sat by Pulse 95 96 99 Oximetry 04/24/22 04/24/22 04/24/22 23:30 23:45 23:46 Temperature 96.0 F L Pulse Rate 86 86 97 H Respiratory 28 H 28 H 28 H Rate Blood Pressure 90/49 90/49 O2 Sat by Pulse 97 92 Oximetry 04/24/22 04/25/22 04/25/22 23:56 00:00 00:16 Temperature Pulse Rate 98 H 110 H 118 H Respiratory 28 H 28 H 28 H Rate Blood Pressure 90/49 90/49 90/49 O2 Sat by Pulse 99 99 99 Oximetry 04/25/22 04/25/22 04/25/22 00:30 00:46 01:00 Temperature Pulse Rate 93 H 122 H 107 H Respiratory 28 H 28 H 28 H Rate Blood Pressure 90/49 90/49 90/49 O2 Sat by Pulse Oximetry 04/25/22 04/25/22 04/25/22 01:16 01:30 01:46 Temperature Pulse Rate 89 114 H 112 H Respiratory 28 H 28 H 28 H Rate Blood Pressure 90/49 90/49 90/49 O2 Sat by Pulse 100 98 Oximetry 04/25/22 04/25/22 04/25/22 01:55 02:00 02:16 Temperature Pulse Rate 90 119 H 90 Respiratory 28 H 28 H 28 H Rate Blood Pressure 90/49 90/49 O2 Sat by Pulse 90 Oximetry 04/25/22 04/25/22 04/25/22 02:30 02:46 03:00 Temperature Pulse Rate 119 H 106 H 102 H Respiratory 28 H 28 H 28 H Rate Blood Pressure 90/49 90/49 90/49 O2 Sat by Pulse 99 100 Oximetry 04/25/22 04/25/22 04/25/22 03:16 03:30 03:32 Temperature Pulse Rate 98 H 117 H 117 H Respiratory 28 H 28 H Rate Blood Pressure 90/49 90/49 90/49 O2 Sat by Pulse 100 Oximetry 04/25/22 04/25/22 04/25/22 03:46 04:00 04:16 Temperature 96.0 F L Pulse Rate 101 H 110 H 102 H Respiratory 28 H 28 H 28 H Rate Blood Pressure 90/49 90/49 90/49 O2 Sat by Pulse Oximetry 04/25/22 04/25/22 04/25/22 04:30 04:46 05:00 Temperature Pulse Rate 103 H 95 H 126 H Respiratory 28 H 28 H 28 H Rate Blood Pressure 90/49 90/49 90/49 O2 Sat by Pulse Oximetry 04/25/22 04/25/22 04/25/22 05:05 05:16 05:30 Temperature Pulse Rate 126 H 117 H 104 H Respiratory 28 H 30 H Rate Blood Pressure 90/49 90/49 O2 Sat by Pulse 98 75 L Oximetry 04/25/22 04/25/22 04/25/22 05:46 05:50 06:00 Temperature Pulse Rate 115 H 115 H 109 H Respiratory 28 H 28 H Rate Blood Pressure 90/49 90/49 O2 Sat by Pulse Oximetry 04/25/22 04/25/22 06:16 06:30 Temperature Pulse Rate 109 H 140 H Respiratory 28 H 28 H Rate Blood Pressure 90/49 90/49 O2 Sat by Pulse Oximetry - Lab 04/25/22 03:40 04/25/22 12:45 Most recent lab results ABG pH 7.167 pH Units (7.350-7.450) L* 04/25/22 03:15 ABG pCO2 40.9 mm Hg 04/25/22 03:15 ABG pO2 95.3 mm Hg (80.0-90.0) H 04/25/22 03:15 ABG HCO3 14.5 mmol/L (20.0-26.0) L 04/25/22 03:15 ABG O2 Saturation 95.4 % (95.0-99.0) 04/25/22 03:15 Calcium 6.0 mg/dL (8.4-10.2) L 04/25/22 03:40 Phosphorus 8.90 mg/dL (2.5-4.5) H 04/25/22 03:40 Magnesium 2.10 mg/dL (1.7-2.3) 04/25/22 03:40 Medications & Allergies - Medications Allergies/Adverse Reactions: Allergies No Known Allergies Allergy (Verified 04/21/22 14:19) Home Medications: Home Medications Medication Instructions Recorded Confirmed Last Taken Type Baclofen 20 mg PO Q12H PRN #20 tab 04/17/22 Unknown Rx Naproxen 500 mg PO Q12H PRN #30 tab 04/17/22 Unknown Rx metFORMIN [Glucophage] 500 mg PO Q12H #60 tab 04/17/22 Unknown Rx Active Medications: Generic Name Dose Route Start Last Admin Trade Name Freq PRN Reason Stop Dose Admin Acetaminophen 650 mg 04/22/22 01:44 Acetaminophen 325 Mg Tab PO Q4H PRN Pain MILD(1-3)/Fever >100.5/KHAN Aspirin 300 mg 04/22/22 15:00 04/24/22 10:24 Aspirin 300 Mg Rect Supp NH Not Given QDAY ANALISA Dextrose 50 ml 04/23/22 09:12 Dextrose 50% In Water (25gm) 50 Ml Syringe IV Q30MIN PRN Hypoglycemia Protocol Famotidine 10 mg 04/24/22 22:00 04/24/22 21:00 Famotidine 20 Mg/2 Ml Inj IV 10 mg BID ANALISA Administration Hydrophilic Ointment 1 applic 04/22/22 20:12 Lip Therapy Vaseline TP Q2HR PRN Dry Lips NORepinephrine/NS 8 MG-250 ML 8 mg in 250 mls @ 9.375 mls/hr 04/22/22 17:00 04/24/22 19:48 Norepinephrine/Ns 8 Mg-250 Ml (Double Conc) IV 8 mcg/min TITRATE ANALISA 15 mls/hr Titration Protocol 5 MCG/MIN Dopamine HCl/Dextrose 800 mg in 250 mls @ 2.381 mls/hr 04/22/22 18:00 04/23/22 13:07 Dopamine 800 Mg/D5w 250ml IV 0 mcg/kg/min TITR ANALISA 0 mls/hr Titration Protocol 2 MCG/KG/MIN Vasopressin 20 unit/ Sodium 101 mls @ 9.09 mls/hr 04/22/22 18:00 04/25/22 02:52 Chloride IV 0.03 units/min TITR ANALISA 9.09 mls/hr Administration Protocol 0.03 UNITS/MIN Sodium Bicarbonate 150 meq/ 1,150 mls @ 125 mls/hr 04/23/22 13:00 04/25/22 04:26 Dextrose IV 125 mls/hr DIRECT ANALISA Administration Metronidazole 500 mg in 100 mls @ 100 mls/hr 04/23/22 15:00 04/25/22 04:25 Flagyl 500 Mg/100 Ml IV 100 mls/hr Q12H ANALISA Administration Protocol Phenylephrine HCl 100 mg/ 100 mls @ 3 mls/hr 04/23/22 19:00 04/23/22 22:20 Sodium Chloride IV 0 mcg/min TITR ANALISA 0 mls/hr Titration Protocol 50 MCG/MIN Cefepime HCl 2 gm in 100 mls @ 200 mls/hr 04/24/22 22:00 04/24/22 21:11 Cefepime/Ns 2 Gm/100 Ml IV 200 mls/hr Q24H ANALISA Administration Protocol Insulin Human Regular 0 units 04/23/22 12:00 04/25/22 05:19 Insulin Regular, Human 100 Units/1 Ml SUB-Q 2 units Q6H ANALISA Administration Protocol Metoclopramide HCl 10 mg 04/22/22 01:44 Metoclopramide 10 Mg/2 Ml Inj IV Q6H PRN Nausea And Vomiting Multi-Ingred Cream/Lotion/Oil/Oint 1 applic 04/22/22 20:12 Mineral Oil/Petrolatum, White Ophth Oint 3.5 Gm OU Q4HR PRN Dry Eye(s) Ondansetron HCl 4 mg 04/22/22 01:44 Ondansetron 4 Mg/2 Ml Inj IV Q8H PRN Nausea And Vomiting Senna/Docusate Sodium 1 tab 04/22/22 22:00 04/24/22 21:12 Sennosides/Docusate Sodium 8.6/50 Mg Tab FEEDTUBE Not Given BID ANALISA Sodium Bicarbonate 100 meq 04/25/22 08:58 Sodium Bicarb 8.4% 50 Meq/50 Ml Syringe IV 04/25/22 08:59 ONCE ONE Sodium Chloride 10 ml 04/22/22 10:00 04/24/22 21:01 Sodium Chloride 0.9% 10 Ml Flush Syringe IV 10 ml BID ANALISA Administration Sodium Chloride 10 ml 04/22/22 01:44 Sodium Chloride 0.9% 10 Ml Flush Syringe IV PRN PRN LINE FLUSH Sodium Chloride 5 ml 04/22/22 20:12 Sodium Chloride 0.9% 500 Ml Ivpb IV DIRECT PRN ARTERIAL RN TRANSITIONAL CARE
[2022-04-25] MEDS ORDERED: SODIUM BICARB 8.4% 50 MEQ/50 ML SYRINGE IV SCH ×2 (09:15→16:00)
[2022-04-25] MEDS ORDERED: METOCLOPRAMIDE 10 MG/2 ML INJ IV PRN (10:00)
--- NOTE | 2022-04-25 10:29 | Progress Note ---
Assessment and Plan 66 y/o male admitted with DKA, now with multisystem organ failure post cardiac arrest x3 04/25/22: Continue supportive measures. Given concern for anoxia, if stable enough will check head CT, noncontrast to look for stigmata associated with this. Agree with AND. OVerall prognosis is very guarded to poor. 04/24/22: Spoke with sister again this morning. Per her, daughter is on board with AND. Will call after rounds today to do phone consent for this as the daughter is in [place]. Continue supportive management. repeat ABG this af ternoon. May need HD but will defer to renal. Guarded to poor prognosis. Reviewed neurology note and agree with assessment. Likelihood of recovery, very very low. Overall prognosis is extremely poor. Likely anoxic brain injuy, renal failure in need of HD, cardiovascular collapse and respiratory failure. Will continue supportive measures. Family will likely make patient DNR and hopefully pursue comfort measures. Treating Hyperkalemia. Fluids. Wean Pressors as tolerated. CCT 31 minutes. Subjective Date of service: 04/25/22 Interval history: Daughter made patient an AND. Still on vasopressor therapy. Worsening acidosis (metabolic). Platelets continue to drop. Mental status is unchanged. Not on sedation. Remainder is negative. Continues to be hypothermic. Objective - Constitutional Vitals: Vital Signs - 12hr 04/24/22 04/24/22 04/24/22 22:30 22:46 23:00 Temperature Pulse Rate 83 92 H 110 H Respiratory 28 H 28 H 28 H Rate Blood Pressure 90/49 90/49 90/49 O2 Sat by Pulse 98 95 96 Oximetry 04/24/22 04/24/22 04/24/22 23:16 23:30 23:45 Temperature 96.0 F L Pulse Rate 119 H 86 86 Respiratory 28 H 28 H 28 H Rate Blood Pressure 90/49 90/49 O2 Sat by Pulse 99 97 92 Oximetry 04/24/22 04/24/22 04/25/22 23:46 23:56 00:00 Temperature Pulse Rate 97 H 98 H 110 H Respiratory 28 H 28 H 28 H Rate Blood Pressure 90/49 90/49 90/49 O2 Sat by Pulse 99 99 Oximetry 04/25/22 04/25/22 04/25/22 00:16 00:30 00:46 Temperature Pulse Rate 118 H 93 H 122 H Respiratory 28 H 28 H 28 H Rate Blood Pressure 90/49 90/49 90/49 O2 Sat by Pulse 99 Oximetry 04/25/22 04/25/22 04/25/22 01:00 01:16 01:30 Temperature Pulse Rate 107 H 89 114 H Respiratory 28 H 28 H 28 H Rate Blood Pressure 90/49 90/49 90/49 O2 Sat by Pulse 100 Oximetry 04/25/22 04/25/22 04/25/22 01:46 01:55 02:00 Temperature Pulse Rate 112 H 90 119 H Respiratory 28 H 28 H 28 H Rate Blood Pressure 90/49 90/49 O2 Sat by Pulse 98 90 Oximetry 04/25/22 04/25/22 04/25/22 02:16 02:30 02:46 Temperature Pulse Rate 90 119 H 106 H Respiratory 28 H 28 H 28 H Rate Blood Pressure 90/49 90/49 90/49 O2 Sat by Pulse 99 100 Oximetry 04/25/22 04/25/22 04/25/22 03:00 03:16 03:30 Temperature Pulse Rate 102 H 98 H 117 H Respiratory 28 H 28 H 28 H Rate Blood Pressure 90/49 90/49 90/49 O2 Sat by Pulse Oximetry 04/25/22 04/25/22 04/25/22 03:32 03:46 04:00 Temperature 96.0 F L Pulse Rate 117 H 101 H 110 H Respiratory 28 H 28 H Rate Blood Pressure 90/49 90/49 90/49 O2 Sat by Pulse 100 Oximetry 04/25/22 04/25/22 04/25/22 04:16 04:30 04:46 Temperature Pulse Rate 102 H 103 H 95 H Respiratory 28 H 28 H 28 H Rate Blood Pressure 90/49 90/49 90/49 O2 Sat by Pulse Oximetry 04/25/22 04/25/22 04/25/22 05:00 05:05 05:16 Temperature Pulse Rate 126 H 126 H 117 H Respiratory 28 H 28 H Rate Blood Pressure 90/49 90/49 O2 Sat by Pulse 98 Oximetry 04/25/22 04/25/22 04/25/22 05:30 05:46 05:50 Temperature Pulse Rate 104 H 115 H 115 H Respiratory 30 H 28 H Rate Blood Pressure 90/49 90/49 O2 Sat by Pulse 75 L Oximetry 04/25/22 04/25/22 04/25/22 06:00 06:16 06:30 Temperature Pulse Rate 109 H 109 H 140 H Respiratory 28 H 28 H 28 H Rate Blood Pressure 90/49 90/49 90/49 O2 Sat by Pulse Oximetry 04/25/22 08:30 Temperature Pulse Rate 129 H Respiratory Rate Blood Pressure 112/40 O2 Sat by Pulse 85 Oximetry - Labs CBC & Chem 7: 04/25/22 03:40 04/25/22 03:40 Labs: Abnormal lab results 04/24/22 04/24/22 04/25/22 Range/Units 16:46 Unknown 00:07 RBC (3.65-5.03) M/mm3 Hgb (11.8-15.2) gm/dl Hct (35.5-45.6) % MCV (84-94) fl MCHC (32-34) % RDW (13.2-15.2) % Plt Count (140-440) K/mm3 ABG pH (7.350-7.450) pH Units ABG pO2 (80.0-90.0) mm Hg ABG HCO3 (20.0-26.0) mmol/L ABG Base Excess (-2.0-3.0) mmol/L ABG Hemoglobin (14.0-18.0) gm/dl Oxyhemoglobin (95.0-99.0) % Sodium (137-145) mmol/L Potassium (3.6-5.0) mmol/L Chloride (98-107) mmol/L Carbon Dioxide (22-30) mmol/L BUN (9-20) mg/dL Creatinine (0.8-1.3) mg/dL Glucose (75-100) mg/dL POC Glucose 143 H 168 H (70-105) mg/dL Lactic Acid 11.60 H* (0.7-2.0) mmol/L Calcium (8.4-10.2) mg/dL Phosphorus (2.5-4.5) mg/dL Total Bilirubin (0.1-1.2) mg/dL AST (5-40) units/L ALT (7-56) units/L Alkaline Phosphatase (35-129) units/L Total Protein (6.3-8.2) g/dL Albumin (3.9-5) g/dL 04/25/22 04/25/22 04/25/22 Range/Units 03:15 03:40 03:40 RBC 2.89 L (3.65-5.03) M/mm3 Hgb 9.1 L (11.8-15.2) gm/dl Hct 29.9 L (35.5-45.6) % MCV 103 H (84-94) fl MCHC 30 L (32-34) % RDW 19.6 H (13.2-15.2) % Plt Count 46 L (140-440) K/mm3 ABG pH 7.167 L* (7.350-7.450) pH Units ABG pO2 95.3 H (80.0-90.0) mm Hg ABG HCO3 14.5 L (20.0-26.0) mmol/L ABG Base Excess -13.2 L (-2.0-3.0) mmol/L ABG Hemoglobin 8.5 L (14.0-18.0) gm/dl Oxyhemoglobin 94.1 L (95.0-99.0) % Sodium 157 H (137-145) mmol/L Potassium 5.1 H (3.6-5.0) mmol/L Chloride 108.9 H (98-107) mmol/L Carbon Dioxide 12 L (22-30) mmol/L BUN 43 H (9-20) mg/dL Creatinine 3.1 H (0.8-1.3) mg/dL Glucose 164 H (75-100) mg/dL POC Glucose (70-105) mg/dL Lactic Acid (0.7-2.0) mmol/L Calcium 6.0 L (8.4-10.2) mg/dL Phosphorus 8.90 H (2.5-4.5) mg/dL Total Bilirubin 3.00 H (0.1-1.2) mg/dL AST 29190 H (5-40) units/L ALT 4800 H (7-56) units/L Alkaline Phosphatase 205 H (35-129) units/L Total Protein 3.1 L (6.3-8.2) g/dL Albumin 1.7 L (3.9-5) g/dL 04/25/22 Range/Units 05:14 RBC (3.65-5.03) M/mm3 Hgb (11.8-15.2) gm/dl Hct (35.5-45.6) % MCV (84-94) fl MCHC (32-34) % RDW (13.2-15.2) % Plt Count (140-440) K/mm3 ABG pH (7.350-7.450) pH Units ABG pO2 (80.0-90.0) mm Hg ABG HCO3 (20.0-26.0) mmol/L ABG Base Excess (-2.0-3.0) mmol/L ABG Hemoglobin (14.0-18.0) gm/dl Oxyhemoglobin (95.0-99.0) % Sodium (137-145) mmol/L Potassium (3.6-5.0) mmol/L Chloride (98-107) mmol/L Carbon Dioxide (22-30) mmol/L BUN (9-20) mg/dL Creatinine (0.8-1.3) mg/dL Glucose (75-100) mg/dL POC Glucose 153 H (70-105) mg/dL Lactic Acid (0.7-2.0) mmol/L Calcium (8.4-10.2) mg/dL Phosphorus (2.5-4.5) mg/dL Total Bilirubin (0.1-1.2) mg/dL AST (5-40) units/L ALT (7-56) units/L Alkaline Phosphatase (35-129) units/L Total Protein (6.3-8.2) g/dL Albumin (3.9-5) g/dL Medications & Allergies - Medications Allergies/Adverse Reactions: Allergies No Known Allergies Allergy (Verified 04/21/22 14:19) Home Medications: Home Medications Medication Instructions Recorded Confirmed Last Taken Type Baclofen 20 mg PO Q12H PRN #20 tab 04/17/22 Unknown Rx Naproxen 500 mg PO Q12H PRN #30 tab 04/17/22 Unknown Rx metFORMIN [Glucophage] 500 mg PO Q12H #60 tab 04/17/22 Unknown Rx Active Medications: Generic Name Dose Route Start Last Admin Trade Name Freq PRN Reason Stop Dose Admin Acetaminophen 650 mg 04/22/22 01:44 Acetaminophen 325 Mg Tab PO Q4H PRN Pain MILD(1-3)/Fever >100.5/KHAN Aspirin 300 mg 04/22/22 15:00 04/24/22 10:24 Aspirin 300 Mg Rect Supp NE Not Given QDAY ANALISA Dextrose 50 ml 04/23/22 09:12 Dextrose 50% In Water (25gm) 50 Ml Syringe IV Q30MIN PRN Hypoglycemia Protocol Famotidine 10 mg 04/24/22 22:00 04/24/22 21:00 Famotidine 20 Mg/2 Ml Inj IV 10 mg BID ANALISA Administration Hydrophilic Ointment 1 applic 04/22/22 20:12 Lip Therapy Vaseline TP Q2HR PRN Dry Lips NORepinephrine/NS 8 MG-250 ML 8 mg in 250 mls @ 9.375 mls/hr 04/22/22 17:00 04/24/22 19:48 Norepinephrine/Ns 8 Mg-250 Ml (Double Conc) IV 8 mcg/min TITRATE ANALISA 15 mls/hr Titration Protocol 5 MCG/MIN Dopamine HCl/Dextrose 800 mg in 250 mls @ 2.381 mls/hr 04/22/22 18:00 04/23/22 13:07 Dopamine 800 Mg/D5w 250ml IV 0 mcg/kg/min TITR ANALISA 0 mls/hr Titration Protocol 2 MCG/KG/MIN Vasopressin 20 unit/ Sodium 101 mls @ 9.09 mls/hr 04/22/22 18:00 04/25/22 02:52 Chloride IV 0.03 units/min TITR ANALISA 9.09 mls/hr Administration Protocol 0.03 UNITS/MIN Sodium Bicarbonate 150 meq/ 1,150 mls @ 125 mls/hr 04/23/22 13:00 04/25/22 04:26 Dextrose IV 125 mls/hr DIRECT ANALISA Administration Metronidazole 500 mg in 100 mls @ 100 mls/hr 04/23/22 15:00 04/25/22 04:25 Flagyl 500 Mg/100 Ml IV 100 mls/hr Q12H ANALISA Administration Protocol Phenylephrine HCl 100 mg/ 100 mls @ 3 mls/hr 04/23/22 19:00 04/23/22 22:20 Sodium Chloride IV 0 mcg/min TITR ANALISA 0 mls/hr Titration Protocol 50 MCG/MIN Cefepime HCl 2 gm in 100 mls @ 200 mls/hr 04/24/22 22:00 04/24/22 21:11 Cefepime/Ns 2 Gm/100 Ml IV 200 mls/hr Q24H ANALISA Administration Protocol Insulin Human Regular 0 units 04/23/22 12:00 04/25/22 05:19 Insulin Regular, Human 100 Units/1 Ml SUB-Q 2 units Q6H ANALISA Administration Protocol Metoclopramide HCl 5 mg 04/25/22 10:00 Metoclopramide 10 Mg/2 Ml Inj IV Q6H PRN Nausea And Vomiting Multi-Ingred Cream/Lotion/Oil/Oint 1 applic 04/22/22 20:12 Mineral Oil/Petrolatum, White Ophth Oint 3.5 Gm OU Q4HR PRN Dry Eye(s) Ondansetron HCl 4 mg 04/22/22 01:44 Ondansetron 4 Mg/2 Ml Inj IV Q8H PRN Nausea And Vomiting Senna/Docusate Sodium 1 tab 04/22/22 22:00 04/24/22 21:12 Sennosides/Docusate Sodium 8.6/50 Mg Tab FEEDTUBE Not Given BID ANALISA Sodium Bicarbonate 100 meq 04/25/22 09:15 Sodium Bicarb 8.4% 50 Meq/50 Ml Syringe IV 04/25/22 13:15 ONCE@0915 ANALISA Sodium Chloride 10 ml 04/22/22 10:00 04/24/22 21:01 Sodium Chloride 0.9% 10 Ml Flush Syringe IV 10 ml BID ANALISA Administration Sodium Chloride 10 ml 04/22/22 01:44 Sodium Chloride 0.9% 10 Ml Flush Syringe IV PRN PRN LINE FLUSH Sodium Chloride 5 ml 04/22/22 20:12 Sodium Chloride 0.9% 500 Ml Ivpb IV DIRECT PRN ARTERIAL [employer] HEART Score - HEART Score Troponin: Troponin T 2.840 ng/mL (0.00-0.029) H* D 04/23/22 10:46
[2022-04-25] MEDS: FAMOTIDINE 20 MG/2 ML INJ IV SCH (11:02)
[2022-04-25] MEDS: ASPIRIN 300 MG RECT SUPP PR SCH (11:05)
[2022-04-25] MEDS: SENNOSIDES/DOCUSATE SODIUM 8.6/50 MG TAB FEEDTUBE SCH (11:06)
[2022-04-25] MEDS: NORepinephrine/NS 8 MG-250 ML 8 MG/250 ML INFUS..BTL IV SCH (11:16)
[2022-04-25 12:12] VITALS: BP 90/49
--- NOTE | 2022-04-25 12:45 | Progress Note ---
Assessment and Plan Patient appears to be too sick with multiorgan failure on multiple pressors. Prognosis is guarded. Goals of care need to be discussed as the care may be futile since the patient has no movements off sedation. Will defer to primary team. Patient's elevated troponin are secondary to cardiac arrest. Echocardiogram shows severe LV systolic dysfunction patient also has known nonischemic cardiomyopathy. Patient is not making good urine output, consider giving a dose of Lasix. Device was interrogated which showed patient had 6 episodes of ventricular fibrillation starting at 5:09 PM yesterday during active CPR. Per her EP doctor who put in a device patient has a history of known congestive heart failure with a EF of 15% history of ventricular tachycardia paroxysmal atrial fibrillation COPD BPH and nonischemic cardiomyopathy. Patient is having episodes of nonsustained VT consider adding amiodarone this may be challenging given he has shock liver. - Patient Problems (1) Systolic and diastolic CHF, chronic Current Visit: Yes Status: Acute (2) Cardiac arrest due to underlying cardiac condition Current Visit: Yes Status: Acute (3) Elevated troponin level not due to acute coronary syndrome Current Visit: Yes Status: Acute (4) NSVT (nonsustained ventricular tachycardia) Current Visit: Yes Status: Acute Subjective Interval history: Overnight events noted. Patient had cardiac arrest with questionable ICD device shock. patient is intubated, patient does not have any movements of sedation. Objective Vital Signs Temp Pulse Resp BP Pulse Ox 04/25/22 12:00 84 28 H 90/49 90 04/25/22 11:46 124 H 28 H 90/49 73 L 04/25/22 11:30 125 H 28 H 90/49 04/25/22 11:16 120 H 28 H 90/49 04/25/22 11:00 134 H 28 H 90/49 04/25/22 10:46 138 H 28 H 90/49 04/25/22 10:30 130 H 28 H 90/49 04/25/22 10:16 126 H 28 H 90/49 04/25/22 10:00 132 H 28 H 90/49 04/25/22 09:46 129 H 28 H 90/49 04/25/22 09:30 121 H 28 H 90/49 04/25/22 09:16 105 H 28 H 90/49 04/25/22 09:00 111 H 28 H 90/49 43 L 04/25/22 08:46 126 H 28 H 90/49 04/25/22 08:30 109 H 28 H 90/49 85 04/25/22 08:16 138 H 28 H 90/49 04/25/22 08:00 103 H 27 H 90/49 04/25/22 07:46 115 H 28 H 90/49 04/25/22 07:30 133 H 28 H 90/49 04/25/22 07:16 130 H 28 H 90/49 04/25/22 07:00 124 H 28 H 90/49 04/25/22 06:46 121 H 28 H 90/49 04/25/22 06:30 140 H 28 H 90/49 04/25/22 06:16 109 H 28 H 90/49 04/25/22 06:00 109 H 28 H 90/49 04/25/22 05:50 115 H 04/25/22 05:46 115 H 28 H 90/49 04/25/22 05:30 104 H 30 H 90/49 75 L 04/25/22 05:16 117 H 28 H 90/49 04/25/22 05:05 126 H 98 04/25/22 05:00 126 H 28 H 90/49 04/25/22 04:46 95 H 28 H 90/49 04/25/22 04:30 103 H 28 H 90/49 04/25/22 04:16 102 H 28 H 90/49 04/25/22 04:00 96.0 F L 110 H 28 H 90/49 04/25/22 03:46 101 H 28 H 90/49 04/25/22 03:32 117 H 90/49 100 04/25/22 03:30 117 H 28 H 90/49 04/25/22 03:16 98 H 28 H 90/49 04/25/22 03:00 102 H 28 H 90/49 04/25/22 02:46 106 H 28 H 90/49 100 04/25/22 02:30 119 H 28 H 90/49 99 04/25/22 02:16 90 28 H 90/49 04/25/22 02:00 119 H 28 H 90/49 04/25/22 01:55 90 28 H 90 04/25/22 01:46 112 H 28 H 90/49 98 04/25/22 01:30 114 H 28 H 90/49 100 04/25/22 01:16 89 28 H 90/49 04/25/22 01:00 107 H 28 H 90/49 04/25/22 00:46 122 H 28 H 90/49 04/25/22 00:30 93 H 28 H 90/49 04/25/22 00:16 118 H 28 H 90/49 99 04/25/22 00:00 110 H 28 H 90/49 99 04/24/22 23:56 98 H 28 H 90/49 99 04/24/22 23:46 97 H 28 H 90/49 04/24/22 23:45 96.0 F L 86 28 H 92 04/24/22 23:30 86 28 H 90/49 97 04/24/22 23:16 119 H 28 H 90/49 99 04/24/22 23:00 110 H 28 H 90/49 96 04/24/22 22:46 92 H 28 H 90/49 95 04/24/22 22:30 83 28 H 90/49 98 04/24/22 22:16 100 H 28 H 90/49 95 04/24/22 22:00 121 H 28 H 90/49 95 04/24/22 21:46 116 H 28 H 90/49 95 04/24/22 21:30 115 H 28 H 90/49 04/24/22 21:16 110 H 28 H 90/49 94 04/24/22 21:00 128 H 28 H 90/49 92 04/24/22 20:46 94 H 28 H 90/49 93 04/24/22 20:30 103 H 28 H 90/49 93 04/24/22 20:16 112 H 28 H 90/49 92 04/24/22 20:00 95.9 F L 105 H 28 H 107/47 94 04/24/22 19:46 127 H 28 H 90/49 91 04/24/22 19:30 96.1 F L 103 H 26 H 90/49 92 04/24/22 19:16 124 H 28 H 90/49 91 04/24/22 19:00 111 H 28 H 94 04/24/22 18:46 122 H 28 H 90 04/24/22 18:30 117 H 28 H 87 04/24/22 18:16 117 H 28 H 85 04/24/22 18:00 108 H 28 H 86 04/24/22 17:46 126 H 28 H 82 L 04/24/22 17:30 127 H 28 H 83 L 04/24/22 17:16 126 H 28 H 79 L 04/24/22 17:00 135 H 28 H 87 04/24/22 16:46 127 H 28 H 87 04/24/22 16:41 28 H 90 04/24/22 16:30 126 H 28 H 89 04/24/22 16:16 135 H 28 H 88 04/24/22 16:00 96.4 F L 136 H 28 H 87 04/24/22 15:46 134 H 28 H 87 04/24/22 15:30 139 H 28 H 88 04/24/22 15:16 140 H 28 H 86 04/24/22 15:00 110 H 28 H 86 04/24/22 14:46 136 H 28 H 84 04/24/22 14:30 129 H 28 H 82 L 04/24/22 14:16 115 H 28 H 82 L 04/24/22 14:00 107 H 28 H 79 L 04/24/22 13:46 125 H 28 H 79 L 04/24/22 13:30 120 H 21 82 L 04/24/22 13:16 130 H 28 H 83 L 04/24/22 13:00 96.3 F L 133 H 28 H 86 04/24/22 12:46 147 H 28 H 91 - Physical Examination General: Other (Intubated) HEENT: Positive: PERRL, Normocephaly Neck: Positive: trachea midline. Negative: JVD/HJR Cardiac: Positive: Reg Rate and Rhythm, S1/S2. Negative: Audible Murmur Lungs: Positive: clear to auscultation (Anterior) Neuro: Positive: Other (Intubated no purposeful movements) Abdomen: Positive: Soft Skin: Negative: Rash Extremities: Absent: edema - Labs and Meds Cardiac Enzymes 04/25/22 Range/Units 03:40 AST 42722 H (5-40) units/L CBC 04/25/22 Range/Units 03:40 WBC 7.1 (4.5-11.0) K/mm3 RBC 2.89 L (3.65-5.03) M/mm3 Hgb 9.1 L (11.8-15.2) gm/dl Hct 29.9 L (35.5-45.6) % Plt Count 46 L (140-440) K/mm3 Comprehensive Metabolic Panel 04/25/22 Range/Units 03:40 Sodium 157 H (137-145) mmol/L Potassium 5.1 H (3.6-5.0) mmol/L Chloride 108.9 H (98-107) mmol/L Carbon Dioxide 12 L (22-30) mmol/L BUN 43 H (9-20) mg/dL Creatinine 3.1 H (0.8-1.3) mg/dL Glucose 164 H (75-100) mg/dL Calcium 6.0 L (8.4-10.2) mg/dL AST 18758 H (5-40) units/L ALT 4800 H (7-56) units/L Alkaline Phosphatase 205 H (35-129) units/L Total Protein 3.1 L (6.3-8.2) g/dL Albumin 1.7 L (3.9-5) g/dL
[2022-04-25] MEDS ORDERED: LORazepam 2 MG/ML VIAL IV PRN ×2 (14:04)
[2022-04-25] MEDS ORDERED: MORPHINE 2 MG/1 ML INJ IV PRN ×2 (14:04)
[2022-04-25] MEDS ORDERED: ONDANSETRON 4 MG/2 ML INJ IV PRN (14:06)
[2022-04-25 14:28] LABS: Calcium 5.7 mg/dL (8.4-10.2)
[2022-04-25] MEDS ORDERED: SCOPOLAMINE TRANSDERMAL PATCH 72 HR TD SCH (15:00)
[2022-04-25] MEDS ORDERED: CALCIUM GLUCONATE 1,000 MG in SODIUM CHLORIDE 0.9% 100 ML IV ONE (15:39)
--- NOTE | 2022-04-25 15:53 | Death Note ---
Note Date of : 04/25/22 Time of : 15:20 Time Pronounced: 15:25 - Preliminary Cause of (problem) (1) Acute respiratory failure Preliminary cause of (2) Acute metabolic encephalopathy Preliminary cause of (3) Cardiac arrest due to underlying cardiac condition Preliminary cause of
[2022-04-25] MEDS ORDERED: CALC GLUCONATE 1GM/NS 100 ML 1 GM/100 ML BAG IV ONE (17:00)
--- NOTE | 2022-04-25 18:30 | Death Summary ---
<TAYLOR GREEN - Last Filed: 04/28/22 09:36> Summary - Providers Date of service: 04/25/22 Consults: 04/21/22 12:58 Consult to Physician [CONS] Urgent Comment: Consulting Provider: VANESSA GUILLORY Physician Instructions: Reason For Exam: dka 04/21/22 18:04 Consult to Physician [CONS] Urgent Comment: Consulting Provider: ANNELISE STARKS Physician Instructions: Reason For Exam: Abnormal EKG and tachycardia 04/22/22 01:49 Consult to Dietitian/Nutrition [CONS] Routine Physician Instructions: Reason For Exam: DKA Reason for Consult: Nutrition Recommendations Reason for Consult: Diet education 04/22/22 20:09 Consult to Physician [CONS] Routine Comment: Consulting Provider: KIMBERLY BALDWIN Physician Instructions: Reason For Exam: s/p cardiac arrests 04/23/22 09:06 Consult to Physician [CONS] Routine Comment: call office left message/[place] Consulting Provider: CHON MATHEWS Physician Instructions: Reason For Exam: s/p Cardiac arrest 04/23/22 09:12 Consult to Dietitian/Nutrition [CONS] Routine Physician Instructions: Reason For Exam: Reason for Consult: Write/Manage Tube Feeding 04/24/22 12:33 Consult to Physician [CONS] Routine Comment: SPOKE TO ANSWERING SERVICE/[place] Consulting Provider: PA CHEW Physician Instructions: Reason For Exam: CARLOS Attending: REYNALDO CAMARGO MD - summary Date of admission: 04/21/22 18:05 Date of : 04/25/22 Reason for admission: Cardiac Arrest Disposition: This is a 66-year-old female with DM, cardiomegaly, Vtach, paroxysmal Afib, NICM s/p bivalve ICD, COPD, Hep C and medical noncompliance initially brought in by EMS due to altered sensorium and confusion. Per EMS, patient was found in a yard by a bystander who called 911. last known well time was unknown. Upon his arrival in the ED, patient was acutely altered, confused, and agitated. Patient was found to be in metabolic acidosis and DKA. The patient was not accompanied by friends or family at this time for collateral information or additional history. Apparently patient was previously seen in the emergency department a few days prior for metabolic acidosis, hyperglycemia, and transaminitis. His glucose was treated at the time, but for unclear reasons, he was discharged. Patient was admitted for DKA. CCM was consulted, patient was placed on the DKA protocol, and admitted in the ICU for further management. While in the ICU patient has X3 cardiac event, PEA arrest, which was treated per ACLS protocol and ROSC was achieved. Patient was placed on ventilatory support and was on multiple pressors and a sodium bicab gtt. Patient went into cardiogenic chock, cardiology was consulted. Patient remained unresponsive, not on any sedation, with no pupillary response and no gag/cough reflexes, and mottle skin. Findings consistent with anoxic brain Injury. Patient was too unstable for CT scan and imagings. Neurology was consulted and EEG was completed. EEG result suggested hypoxic encephalopathy. Patient condition continue to deteriorate, he went multiorgan failure consistent with worsen renal function and significantly elevated LFTs. Nephrology was also consulted. After multiple discussions with patient's exchange two daughter, patient's sister, and patient significant other, by the CCM and the attending. Patient family decided to make the difficult decision to make patient an DNR/AND status and opted for withdrawal of care. Appropriate paperwork signed and placed in the medical record. Withdrawal of care/ comfort care orders were placed. Patient went asystole on 04/25/2022 at 1520 and was pronounced on 04/25/2022 at 1525. Patient's family was at the bedside. Probable Anoxic Brain Injury Acute metabolic encephalopathy S/p X3 Cardiac Arrest with ROSC Cardiogenic Shock Cardiomypathy s/p AICD Acute hypoxic respiratory failure Shock Liver, transaminitis Moderate protein calorie malnutrition Hep C Acute Kidney Injury(CARLOS) most likely ATN SIRS, Severe Lactic Acidosis, C/F ischemic Gut h/o DM s/p DKA Thrombocytopenia <REYNALDO CAMARGO - Last Filed: 04/29/22 07:23> Summary - Providers Consults: 04/21/22 12:58 Consult to Physician [CONS] Urgent Comment: Consulting Provider: VANESSA GUILLORY Physician Instructions: Reason For Exam: dka 04/21/22 18:04 Consult to Physician [CONS] Urgent Comment: Consulting Provider: ANNELISE STARKS Physician Instructions: Reason For Exam: Abnormal EKG and tachycardia 04/22/22 01:49 Consult to Dietitian/Nutrition [CONS] Routine Physician Instructions: Reason For Exam: DKA Reason for Consult: Nutrition Recommendations Reason for Consult: Diet education 04/22/22 20:09 Consult to Physician [CONS] Routine Comment: Consulting Provider: KIMBERLY BALDWIN Physician Instructions: Reason For Exam: s/p cardiac arrests 04/23/22 09:06 Consult to Physician [CONS] Routine Comment: call office left message/[place] Consulting Provider: CHON MATHEWS Physician Instructions: Reason For Exam: s/p Cardiac arrest 04/23/22 09:12 Consult to Dietitian/Nutrition [CONS] Routine Physician Instructions: Reason For Exam: Reason for Consult: Write/Manage Tube Feeding 04/24/22 12:33 Consult to Physician [CONS] Routine Comment: SPOKE TO ANSWERING SERVICE/[place] Consulting Provider: PA CHEW Physician Instructions: Reason For Exam: CARLOS Attending: REYNALDO CAMARGO MD - summary Date of admission: 04/21/22 18:05
== END 2022-04-25 17:40 | DRG 208 ==
LOC: ED 12:26 → CC1 18:05
PROVIDERS: ADMIT Internal Medicine; ATTEND Internal Medicine
PROC: 5A1945Z Respiratory Ventilation, 24-96 Consecutive Hours (ICD-10-PCS; principal; 2022-04-22)
PROC: 0BH17EZ Insertion of Endotracheal Airway into Trachea, Via Natural or Artificial Opening (ICD-10-PCS; 2022-04-22)
PROC: 4A033R1 Measurement of Arterial Saturation, Peripheral, Percutaneous Approach (ICD-10-PCS; 2022-04-22)
PROC: 02HV33Z Insertion of Infusion Device into Superior Vena Cava, Percutaneous Approach (ICD-10-PCS; 2022-04-22)
PROC: B548ZZA Ultrasonography of Superior Vena Cava, Guidance (ICD-10-PCS; 2022-04-22)
PROC: 04HY32Z Insertion of Monitoring Device into Lower Artery, Percutaneous Approach (ICD-10-PCS; 2022-04-22)
PROC: 4B02XTZ Measurement of Cardiac Defibrillator, External Approach (ICD-10-PCS; 2022-04-22)
PROC: 5A12012 Performance of Cardiac Output, Single, Manual (ICD-10-PCS; 2022-04-25)
DX: J96.01 Acute respiratory failure with hypoxia (principal); E11.10 Type 2 diabetes mellitus with ketoacidosis without coma; G93.41 Metabolic encephalopathy; K72.00 Acute and subacute hepatic failure without coma; N17.0 Acute kidney failure with tubular necrosis; E87.0 Hyperosmolality and hypernatremia; E44.0 Moderate protein-calorie malnutrition; R65.10 Systemic inflammatory response syndrome (SIRS) of non-infectious origin without acute organ dysfunction; G93.1 Anoxic brain damage, not elsewhere classified; I42.0 Dilated cardiomyopathy; I50.42 Chronic combined systolic (congestive) and diastolic (congestive) heart failure; I47.1 Supraventricular tachycardia; J96.02 Acute respiratory failure with hypercapnia; I46.9 Cardiac arrest, cause unspecified; R74.01 Elevation of levels of liver transaminase levels; B19.20 Unspecified viral hepatitis C without hepatic coma; Z68.21 Body mass index [BMI] 21.0-21.9, adult; E86.0 Dehydration; R77.8 Other specified abnormalities of plasma proteins; E83.39 Other disorders of phosphorus metabolism; G40.901 Epilepsy, unspecified, not intractable, with status epilepticus; D69.6 Thrombocytopenia, unspecified; J44.9 Chronic obstructive pulmonary disease, unspecified; E87.5 Hyperkalemia; M10.9 Gout, unspecified; I48.0 Paroxysmal atrial fibrillation; Z95.810 Presence of automatic (implantable) cardiac defibrillator; Z79.84 Long term (current) use of oral hypoglycemic drugs; Z86.73 Personal history of transient ischemic attack (TIA), and cerebral infarction without residual deficits; R57.0 Cardiogenic shock
CPT/HCPCS: 36415; 36600; 70450; 71045; 72125; 74018; 76700; 80048; 80053; 80061; 80074; 80076; 80307; 80320; 81001; 82140; 82550; 82553; 82803; 82805; 82962; 83036; 83735; 84100; 84132; 84443; 84484; 85007; 85014; 85018; 85025; 85027; 85520; 85610; 85730; 87040; 87070; 87076; 87086; 87186; 87205; 87806; 93005; 93306; 94002; 94003; 95819; G0378; J2354; J3480; J3490; J7070; J7510; J7517; Q9967; C8929; G0480; J0171; J0610; J0692; J0696; J1265; J1630; J1644; J1815; J2060; J2250; J2370; J3411; J3475; J3486; J7030; J7040; J7120